=== PATIENT | female | born 1930 | race Caucasian/White ===

== ENCOUNTER 2016-04-26 17:29 | Emergency (ER) | payer MEDICARE ==
[2016-04-26 18:30] VITALS: BP 148/72
[2016-04-26] MEDS ORDERED: Mupirocin 2% CREAM* 15 GM TOPICAL ONE (19:54)
--- NOTE | 2016-05-06 15:16 | UC ---
Jagjit Barrera SooYoung, scribed for Tisha Aviles MD on 04/26/16 at 1935 . Lower Extremity/Ankle HPI - HPI Summary HPI Summary: A 85 y/o F presents to E with c/o ongoing erythematous wound on RLE original onset two months ago. Denies SOB. Pt saw Dr. Gonzalez approx 10 days ago. Per daughter, a nursing staff or health aide has been going to pt's home to help her take care of it. Daughter says the wound has gotten worse since she saw it last, which was approx one month ago. The wound clinic recommend that she come in for evaluation before the next appointment. - History of Current Complaint Chief Complaint: UC Stated Complaint: WOUND ON LEG Time Seen by Provider: 04/26/16 18:31 Hx Obtained From: Patient, Family/Instructor Extension Work - daughter Hx Last Menstrual Period: postmenopausal Onset/Duration: Lasting Weeks - approx 2 months, Still Present - Allergies/Home Medications Allergies/Adverse Reactions: Allergies Allergy/AdvReac Type Severity Reaction Status Date / Time No Known Allergies Allergy Verified 04/26/16 19:46 Home Medications: Home Medications Acetaminophen [Tylenol 8 Hour Arthritis] 650 mg PO 04/26/16 [History] Amlodipine Besylate [Norvasc] 2.5 mg PO DAILY 04/26/16 [History Confirmed ] Atenolol [Tenormin 100 MG] 50 mg PO 04/26/16 [History] Atorvastatin* [Lipitor*] 10 mg PO DAILY 04/26/16 [History Confirmed 04/26/16] Calcium W/ Vitamins D & K [Calcium + D + K 750-500-40 mg-Unt-Mcg] 04/26/16 [ History] Donepezil Hydrochloride [Aricept] 5 mg PO 04/26/16 [History] Fluticasone-Salmeterol 100-50* [Advair Diskus 100-50*] 04/26/16 [History] Losartan Potassium [Cozaar] 50 mg PO 04/26/16 [History] Multiple Vitamins W/ Minerals [Icaps Areds 2] 04/26/16 [History] Multiple Vitamins W/ Minerals [Multivitamin Adults] 1 tab PO 04/26/16 [History] Pantoprazole Sodium [Protonix] 20 mg PO 04/26/16 [History] PMH/Surg Hx/FS Hx/Imm Hx Previously Healthy: No Endocrine History Of: Reports: Thyroid Disease Cardiovascular History Of: Reports: Cardiac Disorders - LVH, Hypertension GI/ History Of: Reports: Gastroesophageal Reflux Neurological History Of: Reports: Dementia - vascular dementia Psychological History Of: Reports: Anxiety - Surgical History Surgical History: None Surgery Procedure, Year, and Place: cataracts - Social History Occupation: Unemployed Lives: [facility] Alcohol Use: Weekly Substance Use Type: None Smoking Status (MU): Never Smoked Tobacco Review of Systems Constitutional: Negative Skin: Other - open wound to RLE superior to ankle, diffuse erythema around the wound ENT: Negative Respiratory: Negative Cardiovascular: Negative Gastrointestinal: Negative Genitourinary: Negative Motor: Other - see hpi Neurovascular: Other - see hpi. no new p/d/w. Musculoskeletal: Edema Neurological: Negative - see hpi. + memory challenges. Presents w/ family member. Psychological: Negative All Other Systems Reviewed And Are Negative: Yes Physical Exam Triage Information Reviewed: Yes Appearance: Well-Nourished, Other: - nad Vital Signs: Initial Vital Signs Temp 98.5 F 04/26/16 18:19 Pulse 81 04/26/16 18:19 Resp 16 04/26/16 18:19 BP 148/72 04/26/16 18:19 Pulse Ox 98 04/26/16 18:19 Vital Signs Reviewed: Yes Eye Exam: Normal - grossly normal ENT Exam: Normal - grossly normal Neck: Positive: Supple - for age Respiratory Exam: Normal Respiratory: Positive: Chest non-tender, Lungs clear, Normal breath sounds, No respiratory distress Cardiovascular Exam: Normal Cardiovascular: Positive: RRR, No Murmur, Pulses Normal, Brisk Capillary Refill Abdominal Exam: Normal - obese Musculoskeletal Exam: Other - BLE chronic venous insuff changes, flaky skin, scattered hemosiderosis. Ulcer left ant tib fib. + full thickness + granulation with devitalized fibrin / slough. + mild periulcer redness, with dermatitic component. Legs approx similar dimension. Feet warm to touch. ++ BLE edema. Neurological Exam: Other - appropriate for baseline, per daughter Psychological Exam: Normal - no acute issues Skin Exam: Normal - Additional Comments Appearance: Well-Nourished Eye Exam: Normal ENT Exam: Normal Neck exam: Normal, no adenopathy appreciated Respiratory Exam: Chest non-tender, Lungs clear, Normal breath sounds, No respiratory distress, No accessory muscle use, BREATH SOUNDS ARE EQUAL Cardiovascular Exam: Normal Cardiovascular: Heart rate regular, No Murmur, Pulses Normal - sitting up. heart rate correlates w right radial pulse, Brisk Capillary Refill Abdominal Exam: Normal Abdomen Description: Nontender, No organomegaly, Soft Bowel Sounds: Present Musculoskeletal Exam: BILATERAL LE: DP2+ EQUAL PT 1+, GOOD CAP REFILL, POS 1 TO 2+ EDEMA, NO HOMEN'S, POS EVIDENCE OF VENOUS INSUFFICIENCY CHANGES, FLAKY SKIN, SCATTERED HEMOPSIDEROSIS. Musculoskeletal: Strength Intact Neurological Exam: Normal: nonfocal, grossly intact Psychological Exam: Normal: conversing easily and appropriately Skin Exam: RL PRETIB WOUND: DIMENSIONS L 2.2cm x W 1.4cm, DRY, POSITIVE SURROUNDING REDNESS, NONBLANCHING. WOUND BED: DARK RED WITH MODERATE DEVITALIZED FIBRIN AND SLOUGH. NO ODOR. MINIMAL DRAINAGE. Lower Extremity Course/Dx - Course Course Of Treatment: Apparently Ms. Wilson is followed by the wound clinic. Will switch from medihoney -> mupiricin until further re-eval. Suspect dermatitic component. Start abx in the event that bacterial bioburden has increased, there is some suspicion here. No gail ulcer infection. Reviewd the importance of leg elevation. Will benefit from compression, once arterial status clarified. Seek medical attention for worse or new problems, including sob / cp / fever, worse redness / swelling. Questions answered to the best of my ability - Differential Dx/Diagnosis Provider Diagnoses: LLE nonhealing ulcer. C/w venous stasis ulcer. Dermatitis , possible mild cellulitis. Discharge - Discharge Plan Condition: Stable Disposition: HOME Prescriptions: DOXYcycline CAP(*) [DOXYcycline 100MG CAP(*)] 100 mg PO BID #20 cap Patient Education Materials: Wound Infection (ED), Stasis Dermatitis (ED), Venous Insufficiency (GEN) Referrals: Jody Lopez MD [Primary Care Provider] - Additional Instructions: Change the dressing 1x a day, and as needed for soilage or soak. Ok to shower, pat dry. Avoid strong soaps. DO NOT USE TRIPLE ANTIBIOTIC OR NEOSPORIN ON THE WOUND. NO ASTRINGENTS. Dressing: THIN layer mupirocin ointment, overlie abd pad or gauze, roll guaze. No direct tape to skin. Stop medihoney for now Keep your foot elevated ABOVE YOUR HEART at leat 2x a days for half an hour, if your back can handle it. Keep your foot elevated generally throughout the day as much as possible. Once the inflammation goes down, you will benefit from compression. Ask the wound clinic about compression options. [facility] Telephone number [phone]. Follow up with sonali De Leon. Meanwhile, go to the Emergency Room for any worse or new problems. The documentation as recorded by the Jagjit saez SooYoung accurately reflects the service I personally performed and the decisions made by me, Tisha Aviles MD.
== END 2016-04-26 20:25 | disposition home or self-care (01) ==
LOC: UCEAST 17:29
DX: L97.819 Non-pressure chronic ulcer of other part of right lower leg with unspecified severity (principal); I87.2 Venous insufficiency (chronic) (peripheral); L30.9 Dermatitis, unspecified; I11.0 Hypertensive heart disease with heart failure; I50.1 Left ventricular failure, unspecified; Z98.49 Cataract extraction status, unspecified eye
CPT/HCPCS: 99212; A9270-GY; G0463

== ENCOUNTER 2016-05-06 16:05 | Observation (INO) | payer MEDICARE, OTHER ==
--- NOTE | 2016-05-06 16:51 | ED ---
Medical Screening - HPI Summary HPI Summary: The patient is an 85 year old female sent from [facility] to ED for evaluation. Per my discussion with [facility] staff, patient appeared to have difficulty breathing today. Patient reports feeling generalized weakness stating "I don't have enough push to get myself out of chair." The patient admits to dry cough and rhinorrhea. The patient denies fever, chills, diaphoresis, headache, sore throat, chest pain, shortness of breath, abdominal pain, nausea, vomiting, diarrhea, constipation, change in voiding, dysuria, or hematuria, calf pain, or leg swelling. Given history of vascular dementia, patient is a poor historian and unable to provide PMH or surgical history. Per review of medical records, history of vascular dementia, HTN, GERD. Denies history of smoking. Admits to FH of CAD. SH: Lives in [facility]. - History of Current Complaint Stated Complaint: WEAKNESS Time Seen by Provider: 05/06/16 16:27 PMH/Surg Hx/FS Hx/Imm Hx Endocrine/Hematology History: Reports: Hx Thyroid Disease - Surgical History Surgery Procedure, Year, and Place: cataracts Infectious Disease History: Reports: Hx Shingles - treated - Social History Alcohol Use: Weekly Substance Use Type: Reports: None Smoking Status (MU): Never Smoked Tobacco Review of Systems Positive: Fatigue. Negative: Fever Eyes: Negative ENT: Negative Negative: Sore Throat, Nasal Discharge Cardiovascular: Negative Negative: Chest Pain Respiratory: Negative Negative: Shortness Of Breath, Cough Gastrointestinal: Negative Negative: Abdominal Pain, Vomiting, Nausea Genitourinary: Negative Negative: dysuria, hematuria Musculoskeletal: Negative Negative: Arthralgia, Myalgia Positive: Weakness. Negative: Headache, Numbness All Other Systems Reviewed And Are Negative: Yes Physical Exam Triage Information Reviewed: Yes Vital Signs Reviewed: Yes Appearance: Positive: Well-Appearing, No Pain Distress, Thin Skin: Positive: Warm, Skin Color Reflects Adequate Perfusion, Dry Head/Face: Positive: Normal Head/Face Inspection. Negative: Cephalohematoma Eyes: Positive: Normal, EOMI, IRINA, Conjunctiva Clear ENT: Positive: Normal ENT inspection, Hearing grossly normal, Pharynx normal, TMs normal Neck: Positive: Supple, Nontender, No Lymphadenopathy, Other: - no JVD Respiratory/Lung Sounds: Positive: Clear to Auscultation, Breath Sounds Present. Negative: Decreased Breath Sounds, Rales, Rhonchi, Wheezes, Unable to speak in full sentences Cardiovascular: Positive: Normal, RRR, S1, S2. Negative: Murmur, Rub, Tachycardia, Leg Edema Left, Leg Edema Right, S3 Abdomen Description: Positive: Nontender, No Organomegaly, Soft. Negative: Distended, Guarding, Peritoneal Signs Bowel Sounds: Positive: Present Musculoskeletal: Positive: Strength/ROM Intact - equal muscle strength in UE/LE bilaterally; no extremity drift. Negative: Edema Left, Edema Right Neurological: Positive: Sensory/Motor Intact, CN Intact II-III, Reflexes Intact , Finger to Nose - normal, Facial Symmetry, Speech Normal, Other - A/O to self only - baseline per phone conversation with [facility] staff. NIHSS 0. Negative : Facial Droop, Focal Deficit @, Slurred Speech, Dysarthric Aphasia Psychiatric: Positive: Normal AVPU Assessment: Alert Diagnostics - Laboratory Result Diagrams: 05/06/16 17:15 05/06/16 17:15 Lab Statement: Any lab studies that have been ordered have been reviewed, and results considered in the medical decision making process. Re-Evaluation - Re-Evaluation First Eval Re-Evaluation Time: 18:14 Comment: RN reports during straight cath vaginal area with dry marked erythema. Ordered nystatin ointment. Second Eval Re-Evaluation Time: 18:33 Comment: Patient grimacing with slight tachycardia and tachypnea after straigh cath. Likely pain response. Ordered Tylenol PO which she was unable to tolerate. Changed to Tylenol IV. Third Eval Re-Evaluation Time: 21:01 Comment: Patient requiring 2 person assist to reposition out of bed. Unable to ambulate independently with walker. Course/Dx - Course Assessment/Plan: Patient is a 85 female presenting for acute generalized weakness. EKG with NSR with old Q waves inferior and anterior leads without acute ischemia. Labs significant for Na 127, Cl 97, CO2 21, BUN 29, Cr 1.36, ratio 21.3, and unremarkable troponin. CXR without acute cardiopulmonary disease. Urinalysis unremarkable. As patient is unable to self extricate from bed and ambulate independently, she is unable to return to assisted living. Will be admitted to OBS for further management. - Diagnoses Provider Diagnoses: Dehydration, Weakness - Physician Notifications Discussed Care Of Patient With: Spoke with hospitalist, Jeremiah, who at this time declined admission to OBS. Advised giving NS 1 L bolus then reaccess with ambulation trial. 2108: Spoke with hospitalist Dr. Helton. Discussed inability to perform ADL's independently. Will admit to OBS Instructed by Provider To: Admit As Observation Discharge - Discharge Plan Condition: Stable Disposition: ADMITTED TO [facility] Referrals: Jody Lopez MD [Primary Care Provider] -
[2016-05-06 17:27] LABS: Hematocrit 38 % (35-47); Hemoglobin 12.7 g/dl (12.0-16.0); Mean Corpuscular HGB Conc 33 g/dl (31-36); Mean Corpuscular Hemoglobin 27 pg (27-31); Mean Corpuscular Volume 83 fL (80-97); Mean Platelet Volume 10 um3 (7.4-10.4); Red Blood Count 4.63 10^6/ul (4.0-5.4); Red Cell Distribution Width 15 % (10.5-15); White Blood Count 7.2 10^3/ul (3.5-10.8)
--- NOTE | 2016-05-06 17:39 | RAD ---
Indication: Shortness of breath. 2 views of the chest demonstrate no mediastinal shift. There is cardiomegaly. Lung varghese appear hyperinflated with no evidence of alveolar consolidation. There is likely compression of the thoracic spine. No pneumonia is identified. 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 IMPRESSION: No active cardiopulmonary disease is noted.
[2016-05-06 17:43] LABS: Troponin I 0.03 ng/mL (<0.04)
[2016-05-06 17:45] LABS: BUN/Creatinine Ratio 21.3 (8-20); Calcium 9.4 mg/dL (8.6-10.3); EGFR African American 47.6 (>60); Potassium 4.1 mmol/L (3.5-5.0)
[2016-05-06] MEDS ORDERED: Acetaminophen TAB* 325 MG ONE (18:27)
[2016-05-06 18:31] LABS: Urine Bilirubin Negative (Negative); Urine Glucose Negative (Negative); Urine Nitrite Negative (Negative)
[2016-05-06] MEDS ORDERED: Acetaminophen IV 1GM/100ML * 1,000 MG in PREMIX* 0 ML IVPB ONE (18:32)
[2016-05-06] MEDS: NS 0.9% 1000 ML* 1,000 ML IV SCH (18:35)
[2016-05-06] MEDS: Nystatin OINT* 15 GM TOPICAL SCH (20:17)
[2016-05-06] MEDS ORDERED: Albuterol HFA INHALER* 8 gm MDI INH PRN (22:27)
[2016-05-06] MEDS ORDERED: Acetaminophen TAB* 325 MG PO PRN (22:27)
[2016-05-06] MEDS ORDERED: NS 0.9% 1000 ML* 1,000 ML IV SCH (22:45)
[2016-05-07] MEDS: NS 0.9% 1000 ML* 1,000 ML IV SCH (01:11)
[2016-05-07] MEDS: Heparin VIAL(*) 5000 UNITS/ML VIAL (FIVE THOUSAND) SUBCUT SCH ×3 (06:20→21:23)
[2016-05-07 06:24] LABS: BUN/Creatinine Ratio 19.8 (8-20); Calcium 8.2 mg/dL (8.6-10.3); EGFR African American 60.2 (>60); EGFR Non-African American 46.8 (>60); Potassium 3.5 mmol/L (3.5-5.0)
[2016-05-07] MEDS: Mometasone/Formoter 100/5 MDI INH SCH ×2 (08:27→20:47)
[2016-05-07] MEDS: Losartan TAB* 25 MG PO SCH (10:11)
[2016-05-07] MEDS: Atorvastatin* 10 MG TAB PO SCH (10:11)
[2016-05-07] MEDS: amLODIPine TAB* 5 MG PO SCH (10:11)
[2016-05-07] MEDS: Omeprazole CAP* 20 MG PO SCH (10:12)
[2016-05-07] MEDS: Atenolol TAB* 50 MG PO SCH (10:12)
[2016-05-07] MEDS: Multivitamins/Minera Areds(NF) 1 CAP CAP PO SCH (10:13)
[2016-05-07] MEDS: [UNRECOGNIZED DRUG - MIXTURE] PO SCH (10:15)
[2016-05-07] MEDS ORDERED: Haloperidol TAB* 1 MG PO PRN (10:44)
[2016-05-07] MEDS: Nystatin OINT* 15 GM TOPICAL SCH ×2 (12:47→21:27)
--- NOTE | 2016-05-07 14:29 | HP ---
HISTORY AND PHYSICAL: DATE OF ADMISSION: 05/06/16 CHIEF COMPLAINT: Weakness. HISTORY OF PRESENT ILLNESS: The patient is an 85-year-old woman, who is a resident of [facility], who was sent over because apparently she had difficulty breathing according to the nursing staff at [place]. Initially to the ED doctor, the patient said she had generalized weakness and just had no strength to get herself out of the chair. Unfortunately with me, the patient was completely disoriented and did not know why she was even here. The patient, at time with the ED doctor, denied any fever, chills, headache, chest pain, shortness of breath, abdominal pain, nausea, or vomiting. She has a history of dementia and it is likely why she is in the state she is in when I am seeing the patient right now. Because of the difficulty getting the patient out of chair and her weakness, the patient is being admitted to observation for profound weakness and dehydration. PAST MEDICAL HISTORY: Hypertension, GERD, anemia of chronic disease, osteoarthritis, and anxiety. PAST SURGICAL HISTORY: Cataracts. HOME MEDICATIONS: 1. Ventolin inhaler 2 inhalations q.6 hours as needed. 2. Amlodipine 5 mg daily. 3. Acetaminophen 650 mg every 6 hours as needed. 4. Lipitor 10 mg daily. 5. Atenolol 50 mg daily. 6. Aricept 5 mg at bedtime. 7. Doxycycline 100 mg twice daily. 8. Calcium with vitamin D 1 tablet daily. 9. Advair 2 inhalations twice daily. 10. Losartan 50 mg daily. 11. Protonix 40 mg daily. 12. Multivitamin 1 tablet daily. FAMILY HISTORY: Unable to review with the patient. SOCIAL HISTORY: No tobacco, alcohol, or recreational drug use. She is a resident of [facility]. Her son, Mykel Wilson, is her health care proxy. REVIEW OF SYSTEMS: Unable to review with the patient because of the patient's dementia. PHYSICAL EXAMINATION GENERAL: She is a pleasant elderly woman, lying in bed, in no acute distress. VITAL SIGNS: Temperature 98.7 degrees, heart rate 85 beats per minute, respiratory rate 20 breaths per minute, pulse ox 97%, and blood pressure 159/72. HEENT: Normocephalic, atraumatic. Pupils are equal, round, and reactive to light. Moist mucous membranes. NECK: Supple. No JVD, bruits, palpable thyroid, or lymphadenopathy. CHEST: Clear to auscultation and percussion bilaterally. CARDIOVASCULAR: S1, S2 appreciated. Regular rate and rhythm. ABDOMEN: Positive bowel sounds in all 4 quadrants. Soft, nontender, and nondistended. No hepatosplenomegaly. EXTREMITIES: No cyanosis, clubbing, or edema; +2 peripheral pulses bilaterally. NEUROLOGIC: Alert and oriented x1. Moves all extremities. SKIN: No rash or abnormalities. DIAGNOSTIC STUDIES/LAB DATA: White count 7.2, hemoglobin 12.7, hematocrit 38, and platelets 155. Sodium 127, potassium 4.1, chloride 97, CO2 21, BUN 29, and creatinine 1.26. UA is unremarkable. Chest x-ray was interpreted by Radiology as no active cardiopulmonary disease is noted. EKG: Normal sinus rhythm, 83 beats per minute, normal axis, LVH, and no acute ST-T wave changes. ASSESSMENT AND PLAN: 1. Weakness: I think this likely is secondary to some dehydration. There is nothing else really declaring itself at this time. I will hydrate her with normal saline. I will get a physical therapy exam in the morning and we will observe her overnight. 2. Hypertension: Her blood pressure is not adequately controlled. Continue current management and adjust accordingly. 3. Dementia: Continue Aricept. 4. Hyperlipidemia: Stable. Continue Lipitor. 5. Gastroesophageal reflux disease: Continue Protonix. 6. DVT prophylaxis: Heparin subcu. 7. FEN: Regular diet. 8. Code status: The patient is a full code. TIME SPENT: Over 75 minutes was spent on this H and P; more than 40 minutes of which was spent in direct [id number] contact with the patient, evaluation, physical exam, counseling, and coordination of care. CC: Jody Lopez MD * [id number]/CPS #: [id number] MTDD
--- NOTE | 2016-05-07 18:11 | PN ---
Subjective Date of Service: 05/07/16 Interval History: HOSPITALIST PROGRESS NOTE Patient seen and examined at bedside. She is very anxious, doesn't know what's wrong, where she's at. Denies pain or dyspnea. Family History: Unchanged from Admission Social History: Unchanged from Admission Past Medical History: Unchanged from Admission Objective Active Medications: Acetaminophen (Tylenol Tab*) 650 mg PO Q6HR PRN PRN Reason: pain/fever Albuterol (Ventolin Hfa Inhaler*) 2 puff INH Q6HR PRN PRN Reason: SOB/WHEEZING Amlodipine Besylate (Norvasc Tab*) 5 mg PO DAILY [facility] Last Admin: 05/07/16 10:11 Dose: 5 mg Atenolol (Tenormin Tab*) 50 mg PO DAILY [facility] Last Admin: 05/07/16 10:12 Dose: 50 mg Atorvastatin Calcium (Lipitor*) 10 mg PO DAILY [facility] Last Admin: 05/07/16 10:11 Dose: 10 mg Donepezil HCl (Aricept Tab*) 5 mg PO BEDTIME [facility] Haloperidol (Haldol Tab*) 1 mg PO Q6H PRN PRN Reason: AGITATION Heparin Sodium (Porcine) (Heparin Vial(*)) 5,000 units SUBCUT Q8HR [facility] Last Admin: 05/07/16 14:45 Dose: 5,000 units Losartan Potassium (Cozaar Tab*) 50 mg PO DAILY [facility] Last Admin: 05/07/16 10:11 Dose: 50 mg Mometasone Furoate/Formoterol Fumar (Dulera 100/5 Mdi*) 2 puff INH BID [facility] Last Admin: 05/07/16 08:27 Dose: 2 puff Multivitamins/Minerals (Preservision Areds(Multivitamins/Mineral)(Nf)) 1 cap PO DAILY [facility] Last Admin: 05/07/16 10:13 Dose: Not Given (Calcium W/ Vitamins D & K [Calcium + D + K 750-500-40 Mg- Unt-Mcg] 1 Ta 1 tab PO DAILY [facility] Last Admin: 05/07/16 10:15 Dose: Not Given Nystatin (Nystatin Oint*) 1 applic TOPICAL BID [facility] Last Admin: 05/07/16 12:47 Dose: Not Given Omeprazole (Prilosec Cap*) 20 mg PO DAILY [facility] Last Admin: 05/07/16 10:12 Dose: 20 mg Vital Signs 05/07/16 05/07/16 08:35 15:34 Temperature 97.7 F Pulse Rate 85 82 Respiratory 16 24 Rate Blood Pressure 120/56 (mmHg) O2 Sat by Pulse 98 Oximetry Oxygen Devices in Use Now: None Appearance: Elderly lady sitting up in bed in NAD. Eyes: No Scleral Icterus Ears/Nose/Mouth/Throat: Mucous Membranes Moist Neck: Trachea Midline Respiratory: Symmetrical Chest Expansion and Respiratory Effort, Clear to Auscultation Cardiovascular: RRR - Normal S1 and S2 Abdominal: NL Sounds; No Tenderness; No Distention Neurological: - - AAOx1 (self only), BONNER Lines/Tubes/Other Access: Clean, Dry and Intact Peripheral IV Nutrition: Taking PO's Result Diagrams: 05/06/16 17:15 05/07/16 05:30 Assess/Plan/Problems-Billing Assessment: Mrs. Wilson is an 85yo F with PMH of dementia, HTN, GERD, anxiety, sent to ED for weakness and confusion. - Patient Problems (1) Dementia Comment: - Her symptoms appear to be secondary to progression of her dementia. - I called her PCP (Dr. Lopez) to review her records. - She has no signs of infection at this time and she appears to have had progressive decline over the past year. - Will start Haldol PRN for agitation. - Continue Aricept. (2) Physical deconditioning Comment: - PT/OT. - Will likely need placement. (3) HTN (hypertension) Comment: - Continue Atenolol, Losartan and Amlodipine. (4) GERD (gastroesophageal reflux disease) Comment: - Continue Omeprazole. (5) DVT prophylaxis Comment: - SQ heparin. Status and Disposition: Son Zheng) called and updated about patient's condition. [phone].
[2016-05-07] MEDS: Donepezil TAB* 5 MG PO SCH (21:25)
[2016-05-08] MEDS: Heparin VIAL(*) 5000 UNITS/ML VIAL (FIVE THOUSAND) SUBCUT SCH ×3 (06:23→20:46)
[2016-05-08] MEDS ORDERED: Fluconazole 100 MG TAB* TAB PO ONE (10:50)
[2016-05-08] MEDS: Mometasone/Formoter 100/5 MDI INH SCH ×2 (11:05→20:46)
[2016-05-08] MEDS: Losartan TAB* 25 MG PO SCH (11:10)
[2016-05-08] MEDS: amLODIPine TAB* 5 MG PO SCH (11:11)
[2016-05-08] MEDS: Atenolol TAB* 50 MG PO SCH (11:11)
[2016-05-08] MEDS: Omeprazole CAP* 20 MG PO SCH (11:11)
[2016-05-08] MEDS: Multivitamins/Minera Areds(NF) 1 CAP CAP PO SCH (11:14)
[2016-05-08] MEDS: [UNRECOGNIZED DRUG - MIXTURE] PO SCH (11:14)
[2016-05-08] MEDS: Atorvastatin* 10 MG TAB PO SCH (11:30)
[2016-05-08] MEDS: Nystatin OINT* 15 GM TOPICAL SCH (11:30)
[2016-05-08] MEDS: Miconazole TOPICAL CREAM 2%* 30 GM TOPICAL SCH ×2 (14:42→22:11)
--- NOTE | 2016-05-08 16:20 | PN ---
Subjective Date of Service: 05/08/16 Interval History: HOSPITALIST PROGRESS NOTE Patient seen and examined at bedside. She is much calmer today. C/o pain on her bottom, but otherwise has no complaints. As per RN, has had 3 episodes of soft stools today. Family History: Unchanged from Admission Social History: Unchanged from Admission Past Medical History: Unchanged from Admission Objective Active Medications: Acetaminophen (Tylenol Tab*) 650 mg PO Q6HR PRN PRN Reason: pain/fever Last Admin: 05/08/16 14:41 Dose: 650 mg Albuterol (Ventolin Hfa Inhaler*) 2 puff INH Q6HR PRN PRN Reason: SOB/WHEEZING Amlodipine Besylate (Norvasc Tab*) 5 mg PO DAILY [facility] Last Admin: 05/08/16 11:11 Dose: 5 mg Atenolol (Tenormin Tab*) 50 mg PO DAILY [facility] Last Admin: 05/08/16 11:11 Dose: 50 mg Donepezil HCl (Aricept Tab*) 5 mg PO BEDTIME [facility] Last Admin: 05/07/16 21:25 Dose: 5 mg Haloperidol (Haldol Tab*) 1 mg PO Q6H PRN PRN Reason: AGITATION Heparin Sodium (Porcine) (Heparin Vial(*)) 5,000 units SUBCUT Q8HR [facility] Last Admin: 05/08/16 14:11 Dose: 5,000 units Losartan Potassium (Cozaar Tab*) 50 mg PO DAILY [facility] Last Admin: 05/08/16 11:10 Dose: 50 mg Miconazole Nitrate (Monistat 2%*) 1 applic TOPICAL BID [facility] Last Admin: 05/08/16 14:42 Dose: 1 applic Mometasone Furoate/Formoterol Fumar (Dulera 100/5 Mdi*) 2 puff INH BID [facility] Last Admin: 05/08/16 11:05 Dose: 2 puff Multivitamins/Minerals (Preservision Areds(Multivitamins/Mineral)(Nf)) 1 cap PO DAILY [facility] Last Admin: 05/08/16 11:14 Dose: Not Given (Calcium W/ Vitamins D & K [Calcium + D + K 750-500-40 Mg- Unt-Mcg] 1 Ta 1 tab PO DAILY [facility] Last Admin: 05/08/16 11:14 Dose: Not Given Omeprazole (Prilosec Cap*) 20 mg PO DAILY [facility] Last Admin: 05/08/16 11:11 Dose: 20 mg Vital Signs 05/08/16 14:00 Temperature 98.2 F Pulse Rate 80 Respiratory 20 Rate Blood Pressure 132/68 (mmHg) O2 Sat by Pulse 96 Oximetry Oxygen Devices in Use Now: None Appearance: Elderly lady lying in bed in NAD. Eyes: No Scleral Icterus Ears/Nose/Mouth/Throat: Mucous Membranes Moist Neck: Trachea Midline Respiratory: Symmetrical Chest Expansion and Respiratory Effort, Clear to Auscultation Cardiovascular: RRR - Normal S1 and S2 Abdominal: NL Sounds; No Tenderness; No Distention Skin: - - Severe erythema to genital area, extending in to perianal area Neurological: - - AAOx1 (self only) Lines/Tubes/Other Access: Clean, Dry and Intact Peripheral IV Nutrition: Taking PO's Result Diagrams: 05/06/16 17:15 05/07/16 05:30 Assess/Plan/Problems-Billing Assessment: Mrs. Wilson is an 85yo F with PMH of dementia, HTN, GERD, anxiety, sent to ED for weakness and confusion. - Patient Problems (1) Loose stools Comment: - She may have a viral gastroenteritis as the source of her discomfort - will monitor for now. (2) Dementia Comment: - Her symptoms appear to be secondary to progression of her dementia. - I called her PCP (Dr. Lopez) to review her records. - She has no signs of infection at this time and she appears to have had progressive decline over the past year. - Continue Haldol PRN for agitation. - Continue Aricept. (3) Intertriginous candidiasis Comment: - Suspect part of her discomfort is secondary to intertrigo. - Will give Fluconazole 150mg x 1 dose and Miconazole topical. (4) Physical deconditioning Comment: - PT/OT. - Will likely need placement. (5) HTN (hypertension) Comment: - Continue Atenolol, Losartan and Amlodipine. (6) GERD (gastroesophageal reflux disease) Comment: - Continue Omeprazole. (7) DVT prophylaxis Comment: - SQ heparin. Status and Disposition: Change to [facility].
[2016-05-08] MEDS: Donepezil TAB* 5 MG PO SCH (20:45)
[2016-05-09] MEDS: Heparin VIAL(*) 5000 UNITS/ML VIAL (FIVE THOUSAND) SUBCUT SCH ×3 (06:19→22:14)
[2016-05-09 06:28] LABS: Hematocrit 36 % (35-47); Hemoglobin 12.3 g/dl (12.0-16.0); Mean Corpuscular HGB Conc 34 g/dl (31-36); Mean Corpuscular Hemoglobin 28 pg (27-31); Mean Corpuscular Volume 81 fL (80-97); Mean Platelet Volume 10 um3 (7.4-10.4); Red Blood Count 4.45 10^6/ul (4.0-5.4); Red Cell Distribution Width 15 % (10.5-15); White Blood Count 6.3 10^3/ul (3.5-10.8)
[2016-05-09 06:55] LABS: BUN/Creatinine Ratio 16.7 (8-20); Calcium 8.5 mg/dL (8.6-10.3); EGFR African American 62.2 (>60); EGFR Non-African American 48.3 (>60); Potassium 3.3 mmol/L (3.5-5.0)
[2016-05-09] MEDS: Atenolol TAB* 50 MG PO SCH (08:54)
[2016-05-09] MEDS: amLODIPine TAB* 5 MG PO SCH (08:54)
[2016-05-09] MEDS: Losartan TAB* 25 MG PO SCH (08:54)
[2016-05-09] MEDS: Omeprazole CAP* 20 MG PO SCH (08:54)
[2016-05-09] MEDS: Potassium Chloride LIQUID* 20 MEQ PACKET PO SCH (08:54)
[2016-05-09] MEDS: Miconazole TOPICAL CREAM 2%* 30 GM TOPICAL SCH ×2 (08:55→20:34)
[2016-05-09] MEDS: [UNRECOGNIZED DRUG - MIXTURE] PO SCH (09:09)
[2016-05-09] MEDS: Multivitamins/Minera Areds(NF) 1 CAP CAP PO SCH (09:09)
[2016-05-09] MEDS: Mometasone/Formoter 100/5 MDI INH SCH ×2 (09:30→19:53)
--- NOTE | 2016-05-09 15:32 | PN ---
Subjective Date of Service: 05/09/16 Interval History: HOSPITALIST PROGRESS NOTE Patient seen and examined at bedside. She offers no complaints at this time. As per RN, she has had 5 loos BMs so far today, with some mucus. Tolerating diet well. Family History: Unchanged from Admission Social History: Unchanged from Admission Past Medical History: Unchanged from Admission Objective Active Medications: Acetaminophen (Tylenol Tab*) 650 mg PO Q6HR PRN PRN Reason: pain/fever Last Admin: 05/08/16 14:41 Dose: 650 mg Albuterol (Ventolin Hfa Inhaler*) 2 puff INH Q6HR PRN PRN Reason: SOB/WHEEZING Amlodipine Besylate (Norvasc Tab*) 5 mg PO DAILY [facility] Last Admin: 05/09/16 08:54 Dose: 5 mg Atenolol (Tenormin Tab*) 50 mg PO DAILY [facility] Last Admin: 05/09/16 08:54 Dose: 50 mg Donepezil HCl (Aricept Tab*) 5 mg PO BEDTIME [facility] Last Admin: 05/08/16 20:45 Dose: 5 mg Haloperidol (Haldol Tab*) 1 mg PO Q6H PRN PRN Reason: AGITATION Heparin Sodium (Porcine) (Heparin Vial(*)) 5,000 units SUBCUT Q8HR [facility] Last Admin: 05/09/16 14:10 Dose: 5,000 units Lidocaine (Xylocaine 5% Oint*) 1 applic TOPICAL BID PRN PRN Reason: PAIN Losartan Potassium (Cozaar Tab*) 50 mg PO DAILY [facility] Last Admin: 05/09/16 08:54 Dose: 50 mg Miconazole Nitrate (Monistat 2%*) 1 applic TOPICAL BID [facility] Last Admin: 05/09/16 08:55 Dose: 1 applic Mometasone Furoate/Formoterol Fumar (Dulera 100/5 Mdi*) 2 puff INH BID [facility] Last Admin: 05/09/16 09:30 Dose: 2 puff Multivitamins/Minerals (Preservision Areds(Multivitamins/Mineral)(Nf)) 1 cap PO DAILY [facility] Last Admin: 05/09/16 09:09 Dose: Not Given (Calcium W/ Vitamins D & K [Calcium + D + K 750-500-40 Mg- Unt-Mcg] 1 Ta 1 tab PO DAILY [facility] Last Admin: 05/09/16 09:09 Dose: Not Given Omeprazole (Prilosec Cap*) 20 mg PO DAILY [facility] Last Admin: 05/09/16 08:54 Dose: 20 mg Potassium Chloride (Klor-Con Liquid*) 40 meq PO DAILY [facility] Last Admin: 05/09/16 08:54 Dose: 40 meq Vital Signs 05/08/16 05/08/16 05/09/16 20:00 23:17 07:34 Temperature 97.5 F 98.3 F Pulse Rate 78 82 Respiratory 16 16 17 Rate Blood Pressure 123/53 115/55 (mmHg) O2 Sat by Pulse 95 96 Oximetry 05/09/16 05/09/16 10:02 14:23 Temperature 98.5 F Pulse Rate 76 Respiratory 20 18 Rate Blood Pressure 148/88 (mmHg) O2 Sat by Pulse 96 Oximetry Oxygen Devices in Use Now: None Appearance: Pleasantly confused elderly lady lying in bed in NAD. Eyes: No Scleral Icterus Ears/Nose/Mouth/Throat: Mucous Membranes Moist Neck: Trachea Midline Respiratory: Symmetrical Chest Expansion and Respiratory Effort, Clear to Auscultation Cardiovascular: RRR - Normal S1 and S2 Abdominal: NL Sounds; No Tenderness; No Distention Neurological: - - AAOx1 (self), [place] Lines/Tubes/Other Access: Clean, Dry and Intact Peripheral IV Nutrition: Taking PO's Result Diagrams: 05/09/16 06:11 05/09/16 06:11 Microbiology and Other Data: Microbiology 05/09/16 09:05 Stool Gross Appearance - Final Stool Rotavirus Antigen - Final Negative Rotavirus 05/09/16 09:05 Stool Gross Appearance - Final Stool Stool Lactoferrin - Final Assess/Plan/Problems-Billing Assessment: Mrs. Wilson is an 85yo F with PMH of dementia, HTN, GERD, anxiety, sent to ED for weakness and confusion. - Patient Problems (1) Loose stools Comment: - She may have a viral gastroenteritis as the source of her discomfort - will monitor for now. - Stool w/u sent - rotavirus negative. (2) Dementia Comment: - Her symptoms appear to be secondary to progression of her dementia. - I called her PCP (Dr. Lopez) to review her records. - She has no signs of infection at this time and she appears to have had progressive decline over the past year. - Continue Haldol PRN for agitation. - Continue Aricept. (3) Intertriginous candidiasis Comment: - Suspect part of her discomfort is secondary to intertrigo. - Received Fluconazole 150mg x 1 dose and continue Miconazole topical. (4) Physical deconditioning Comment: - PT/OT. - Will need placement. (5) HTN (hypertension) Comment: - Continue Atenolol, Losartan and Amlodipine. (6) GERD (gastroesophageal reflux disease) Comment: - Continue Omeprazole. (7) DVT prophylaxis Comment: - SQ heparin. Status and Disposition: Patient was Care Home care but now has diarrhea. Will change back to [facility]. Hope to d/c to [facility] in AM if diarrhea improved.
[2016-05-09] MEDS: Donepezil TAB* 5 MG PO SCH (20:34)
[2016-05-09] MEDS: Lidocaine 5% OINT TOPICAL PRN (22:04)
[2016-05-10] MEDS: Heparin VIAL(*) 5000 UNITS/ML VIAL (FIVE THOUSAND) SUBCUT SCH (06:11)
[2016-05-10 07:19] VITALS: BP 119/53
[2016-05-10] MEDS: [UNRECOGNIZED DRUG - MIXTURE] PO SCH (07:24)
[2016-05-10] MEDS: Losartan TAB* 25 MG PO SCH (07:27)
[2016-05-10] MEDS: Omeprazole CAP* 20 MG PO SCH (07:27)
[2016-05-10] MEDS: Potassium Chloride LIQUID* 20 MEQ PACKET PO SCH (07:28)
[2016-05-10] MEDS: Atenolol TAB* 50 MG PO SCH (07:28)
[2016-05-10] MEDS: Lidocaine 5% OINT TOPICAL PRN (07:28)
[2016-05-10] MEDS: amLODIPine TAB* 5 MG PO SCH (07:28)
[2016-05-10] MEDS: Miconazole TOPICAL CREAM 2%* 30 GM TOPICAL SCH (07:29)
[2016-05-10] MEDS: Multivitamins/Minera Areds(NF) 1 CAP CAP PO SCH (08:06)
[2016-05-10] MEDS: Mometasone/Formoter 100/5 MDI INH SCH (08:58)
--- NOTE | 2016-05-10 10:35 | DS ---
DATE OF ADMISSION: 05/06/16 DATE OF DISCHARGE: 05/10/16 PRIMARY CARE PROVIDER: Dr. Lopez DISCHARGE DIAGNOSES: 1. Deconditioning. 2. Dementia. 3. Self-limited episodes of diarrhea. 4. Intertrigo. SECONDARY DIAGNOSES: 1. Dementia. 2. Hypertension. 3. Gastroesophageal reflux disease. 4. Anxiety. MEDICATIONS AT TIME OF DISCHARGE: 1. Acetaminophen 650 mg po 6 hours prn pain. 2. Amlodipine 5 mg po daily. 3. Atenolol 50 mg po daily. 4. Atorvastatin 10 mg po daily. 5. Calcium plus vitamin D one tablet po daily. 6. Donepezil 5 mg po at bedtime. 7. Advair 100/50 two puffs inhaled bid. 8. Losartan 50 mg po daily. 9. Miconazole 2% to genital area bid. 10. Multivitamin one capsule po daily. 11. Pantoprazole 40 mg po daily. 12. Ventolin HFA two puffs inhaled q 6 hours prn shortness of breath. HOSPITAL COURSE: Ms. Wilson is an 85-year-old lady with a past medical history as stated above who presented to the emergency room with weakness. The patient is demented, confused, and was unable to provide any history. As per HPI, she was sent over from [place] because she was having difficulty breathing; but, the ER provider thought that the patient had generalized weakness. For more details about her presentation, I refer you to her history and physical. The admitting physician found that she had some weakness and dehydration, but no other specific source was found. Her CBC was normal. Her chemistry showed mild elevation of her creatinine, and she had mild hyponatremia. Urinalysis was negative for a UTI. A chest x-ray was negative for infiltrate. The patient was initially admitted as observation. I contacted her primary care provider and reviewed her history, and my impression was that this was likely a progression of her known dementia. I discussed my impression with the family, and the plan was for SNF placement for rehab in hopes of getting her back to [place]. The patient was transferred to fdc care while she awaited SNF placement. The patient did have one day of multiple episodes of diarrhea. Stool workup was sent. Rotavirus was negative. Stool culture so far has shown no growth, and a fecal lactoferrin was positive. The patient received only supportive care , and her diarrhea has now resolved. On admission, the patient was found to have severe erythema of her genital area with edema extending to her perineal area, suggestive of intertriginous candidiasis. The patient received one dose of oral Fluconazole and has received topical treatment with Miconazole with improvement. The edema has subsided. She still has some erythema, but it's not as intense as it was before. At this point, the patient is felt to be medically stable to be discharged to [facility] for rehab. PHYSICAL EXAMINATION: Vital signs - temperature 97.3, heart rate 80, respiratory rate 14, oxygen saturation 97% on room air, blood pressure 119/53. General - patient is an elderly lady, pleasantly confused, lying in bed in no acute distress. CVS - normal S1, S2, regular rate and rhythm. Chest - breath sounds bilaterally with no added sounds. Abdomen - soft, non-tender, non- distended, bowel sounds present. Extremities - no edema. Neuro - she's alert, awake, oriented x1 to self only, able to move all four extremities. DIET: Regular diet. ACTIVITIES: As tolerated. Continue PT as tolerated. STATUS WHILE IN HOSPITAL: Observation/fdc. DISPOSITION: [facility]. Please keep in mind that this is a summarized version of this patient's hospital stay. If you need any more information, please feel free to call me at [phone], or please obtain the full medical record. Approximately 45 minutes were spent to complete this discharge. CC: [facility]; Dr. Lpoez* [id number]/CPS #: [id number] MTDD
== END 2016-05-10 11:30 ==
LOC: ED 16:05 → MED 22:32 → INTOOBSV 05-08 12:18 → OBSVTOIN 05-08 12:18
PROVIDERS: ADMIT Internal Medicine; ATTEND Internal Medicine
DX: F03.90 Unspecified dementia, unspecified severity, without behavioral disturbance, psychotic disturbance, mood disturbance, and anxiety (principal); R19.7 Diarrhea, unspecified; L30.4 Erythema intertrigo; I10 Essential (primary) hypertension; K21.9 Gastro-esophageal reflux disease without esophagitis; F41.9 Anxiety disorder, unspecified; D64.9 Anemia, unspecified; M19.90 Unspecified osteoarthritis, unspecified site; E78.5 Hyperlipidemia, unspecified; R53.1 Weakness
CPT/HCPCS: 36415; 71020; 80048; 81003; 83630; 84484; 85025; 87045; 87046; 87070; 87077; 87205; 87425; 87640; 87641; 87899; 93005; 94640; 94760; 99285; A9270-GY; G0378; G8978-GP-CK; G8979-GP-CI; G8987-GO-CL; G8988-GO-CJ; J1644

== ENCOUNTER 2016-06-21 17:22 | Emergency (ER) | payer MEDICARE ==
[2016-06-21 19:35] VITALS: BP 163/85
--- NOTE | 2016-06-21 19:47 | ED ---
Miquel Barrera Anna, scribed for Cheko Colvin MD on 06/21/16 at 1924 . Throat Pain/Nasal Congestion - HPI Summary HPI Summary: Patient is an 86 y/o female coming to [facility] presenting with sudden onset of one episode of epistaxis that began earlier today. The epistaxis is now resolved. She reports no other pain or symptoms. She has a history of HTN. At triage, her BP was 203/81. She denies current use of blood thinners. She lives at [place]. - History of Current Complaint Chief Complaint: EDEpistaxis Time Seen by Provider: 06/21/16 19:19 Hx Obtained From: Patient Onset/Duration: Sudden Onset, Resolved Severity: Moderate - Allergies/Home Medications Allergies/Adverse Reactions: Allergies Allergy/AdvReac Type Severity Reaction Status Date / Time No Known Allergies Allergy Verified 04/26/16 19:46 PMH/Surg Hx/FS Hx/Imm Hx Endocrine/Hematology History: Reports: Hx Thyroid Disease Cardiovascular History: Reports: Hx Hypertension Sensory History: Reports: Hx Contacts or Glasses Opthamlomology History: Reports: Hx Contacts or Glasses - Surgical History Surgery Procedure, Year, and Place: cataracts Hx Anesthesia Reactions: - UNSURE Infectious Disease History: Reports: Hx Shingles - treated Denies: Traveled Outside the [place] in Last 30 Days - Family History Known Family History: Positive: Hypertension - Social History Occupation: Retired Lives: [facility] Alcohol Use: None Substance Use Type: Reports: None Smoking Status (MU): Never Smoked Tobacco Review of Systems Negative: Fever Positive: Epistaxis Psychological: Normal All Other Systems Reviewed And Are Negative: Yes Physical Exam Triage Information Reviewed: Yes Vital Signs On Initial Exam: Initial Vitals Temp Pulse Resp BP Pulse Ox 97.4 F 80 16 203/81 100 06/21/16 17:31 06/21/16 17:31 06/21/16 17:31 06/21/16 17:31 06/21/16 17:31 Vital Signs Reviewed: Yes Appearance: Positive: Well-Appearing, No Pain Distress Skin: Positive: Warm Head/Face: Positive: Normal Head/Face Inspection Eyes: Positive: IRINA ENT: Positive: Hearing grossly normal, Other - no nasal bleeding or dry blood noted Neck: Positive: Supple Respiratory/Lung Sounds: Positive: Breath Sounds Present Cardiovascular: Positive: RRR Abdomen Description: Positive: Nontender, Soft Musculoskeletal: Positive: Strength/ROM Intact - [place] Coma Scale Coma Scale Total: 15 Diagnostics - Vital Signs Vital Signs Temp Pulse Resp BP Pulse Ox 06/21/16 18:02 11 06/21/16 18:01 99.1 F 06/21/16 18:00 194/91 06/21/16 17:53 85 16 189/89 06/21/16 17:31 97.4 F 80 16 203/81 100 - Laboratory Lab Statement: Any lab studies that have been ordered have been reviewed, and results considered in the medical decision making process. EENT Course/Dx - Course Assessment/Plan: Patient is an 86 y/o female coming to [facility] presenting with sudden onset of one episode of epistaxis that began earlier today. The epistaxis is now resolved. She has a history of HTN. At triage, her BP was 203/ 81. She denies current use of blood thinners. Patient will be discharged with follow-up from her primary care physician. Patient is agreeable with this plan. - Diagnoses Provider Diagnoses: Epistaxis Discharge - Discharge Plan Condition: Stable Disposition: HOME Patient Education Materials: Nosebleed (ED) Referrals: Jody Lopez MD [Primary Care Provider] - Additional Instructions: Follow up with primary care provider in 48 hours. Return to the Emergency Department for new or worsening symptoms. The documentation as recorded by the Miquel saez Anna accurately reflects the service I personally performed and the decisions made by , Cheko Colvin MD.
== END 2016-06-21 20:47 | disposition home or self-care (01) ==
LOC: ED 17:22
DX: R04.0 Epistaxis (principal); Z86.79 Personal history of other diseases of the circulatory system
CPT/HCPCS: 99283

== ENCOUNTER 2016-06-28 09:28 | Emergency (ER) | payer MEDICARE ==
--- NOTE | 2016-06-28 09:58 | ED ---
Throat Pain/Nasal Congestion - HPI Summary HPI Summary: Pt presents w/ Lt sided epistaxis while eating breakfast this morning. Bleeding cause her to cough and she spit her food out at the table - appears to be upset/ embarrassed about this. Bleeding has stopped prior to arrival. Pt is quite anxious as this is the second time it's happened in the past month. SHe denies use of anticoagulants and no known trauma to nose that she recalls although admits she gets confused at times. No known head injury reported by pt or [facility] where she resides. Denies nausea, vomiting, diarrhea, chest pain or ab pain. She does have a high level of anxiety and h/o elevated BP (systolic in 200's) - BP is WNL today. [facility] staff requesting ENT referral w/ recurrent epistaxis. - History of Current Complaint Chief Complaint: EDEpistaxis Time Seen by Provider: 06/28/16 09:55 Hx Obtained From: Patient - Allergies/Home Medications Allergies/Adverse Reactions: Allergies Allergy/AdvReac Type Severity Reaction Status Date / Time No Known Allergies Allergy Verified 06/28/16 09:46 PMH/Surg Hx/FS Hx/Imm Hx Previously Healthy: Yes Endocrine/Hematology History: Reports: Hx Thyroid Disease Denies: Hx Blood Disorders, Hx Coagulopothy Cardiovascular History: Reports: Hx Hypertension Sensory History: Reports: Hx Contacts or Glasses Opthamlomology History: Reports: Hx Contacts or Glasses Psychiatric History: Reports: Hx Anxiety - Surgical History Surgery Procedure, Year, and Place: cataracts Hx Anesthesia Reactions: - UNSURE Infectious Disease History: No Infectious Disease History: Reports: Hx Shingles - treated Denies: Traveled Outside the [place] in Last 30 Days - Family History Known Family History: Positive: Hypertension - Social History Occupation: Retired [facility] Alcohol Use: None Hx Substance Use: No Substance Use Type: Reports: None Hx Tobacco Use: No Smoking Status (MU): Never Smoked Tobacco Review of Systems Negative: Fever, Chills Positive: Epistaxis - see HPI. Negative: Sore Throat, Ear Ache, Nasal Discharge Negative: Chest Pain Negative: Shortness Of Breath Negative: Abdominal Pain, Vomiting, Diarrhea, Nausea Positive: no symptoms reported Musculoskeletal: Negative Skin: Negative Negative: Headache Positive: Anxious All Other Systems Reviewed And Are Negative: Yes Physical Exam Triage Information Reviewed: Yes Vital Signs On Initial Exam: Initial Vitals Temp Pulse Resp BP Pulse Ox 98.2 F 90 20 139/74 100 06/28/16 09:33 06/28/16 09:33 06/28/16 09:33 06/28/16 09:33 06/28/16 09:33 Vital Signs Reviewed: Yes Appearance: Positive: Well-Appearing, No Pain Distress, Well-Nourished - anxious Skin: Positive: Warm, Dry Head/Face: Positive: Normal Head/Face Inspection Eyes: Positive: Normal, EOMI, Conjunctiva Clear ENT: Positive: Hearing grossly normal, Pharynx normal - no blood along pharyngeal wall or within oral cavity, TMs normal - no hemotympanum. Negative: Nasal congestion, Nasal drainage - LT nares w/ pinpoint erythema over anterior septal wall - appears to be the source of recent bleed; she also has scant dried blood around Left nare - no other blood (active or dried) observed. Tissue which she placed to nose to stop bleeding initially is w/ minimal blood soaking. Dental: Positive: Other - multiple amalgom fillings Neck: Positive: Supple, Nontender Respiratory/Lung Sounds: Positive: Clear to Auscultation, Breath Sounds Present Cardiovascular: Positive: Normal Abdomen Description: Positive: Nontender, Soft Musculoskeletal: Positive: Normal, Strength/ROM Intact Neurological: Positive: Normal, Sensory/Motor Intact, Alert, Oriented to Person Place, Time - she recalls most details however gets anxious and flustered at times, CN Intact II-III Psychiatric: Positive: Anxious Procedures - Procedure Summary Procedure Summary: Applied small amount of silver nitrate to area of concern in Lt nare. Area completely covered and cautery successful - no complications and pt tolerated well. Diagnostics - Vital Signs Vital Signs Temp Pulse Resp BP Pulse Ox 06/28/16 09:35 98.2 F 90 20 139/74 100 06/28/16 09:33 98.2 F 90 20 139/74 100 - Laboratory Result Diagrams: 06/28/16 10:10 Lab Statement: Any lab studies that have been ordered have been reviewed, and results considered in the medical decision making process. EENT Course/Dx - Course Course Of Treatment: Pt's epistaxis had ceased prior to arrival however she was extremely anxious this might happen yet again so area of suspected origin was chemically cauterized. Pt tolerated well. Advised if epistaxis returns, to lean forward and pinch the soft part of her distal nose for 20 consecutive minutes. If bleeding continues, return to ED. She may follow-up with ENT if epistaxis returns. No large apparent vessels appear to be involved in the anterior plexus and w/o active bleeding, tough to see if something more serious was going on during time of active bleeding. ENT can evaluate with more thorough inspection if problem continues. Education about digital trauma - pt agrees w/ plan. - Diagnoses Provider Diagnoses: Epistaxis, recurrent Discharge - Discharge Plan Condition: Stable Disposition: HOME Patient Education Materials: Nosebleed (ED) Referrals: Jody Lopez MD [Primary Care Provider] - Additional Instructions: Your area of concern was cheimcally cauterized today. If nose bleed returns, you may lean forward and pinch soft part of nose for 20 consecutive minutes. If bleeding continues after this time, return to ED. You may follow-up with ENT if nosebleeds return - otherwise, appears well controlled at this time. If you want to see ENT for this issue, call to make an appointment. Contact information provided below.
[2016-06-28 10:19] LABS: Hematocrit 34 % (35-47); Hemoglobin 11.4 g/dl (12.0-16.0); Mean Corpuscular HGB Conc 33 g/dl (31-36); Mean Corpuscular Hemoglobin 27 pg (27-31); Mean Corpuscular Volume 82 fL (80-97); Mean Platelet Volume 9 um3 (7.4-10.4); Red Blood Count 4.19 10^6/ul (4.0-5.4); Red Cell Distribution Width 15 % (10.5-15); White Blood Count 10.2 10^3/ul (3.5-10.8)
[2016-06-28 10:48] LABS: Albumin 3.8 g/dL (3.2-5.2); BUN/Creatinine Ratio 14.5 (8-20); Calcium 9.3 mg/dL (8.6-10.3); EGFR African American 56.5 (>60); Globulin 3.6 g/dL (2-4); Potassium 3.8 mmol/L (3.5-5.0); Total Bilirubin 0.6 mg/dL (0.2-1.0); Total Protein 7.4 g/dL (6.4-8.9)
[2016-06-28 10:50] VITALS: BP 160/73
== END 2016-06-28 10:48 | disposition home or self-care (01) ==
LOC: ED 09:28
DX: R04.0 Epistaxis (principal); R05 Cough; F41.9 Anxiety disorder, unspecified
CPT/HCPCS: 36415; 80053; 85025; 85610; 85730; 99282

== ENCOUNTER 2016-07-13 10:16 | Emergency (ER) | payer MEDICARE ==
[2016-07-13 10:47] VITALS: BP 120/69
--- NOTE | 2016-07-13 10:59 | UC ---
General HPI - HPI Summary HPI Summary: Here with her son complaint of skin tear on her left arm that occurered 3-4 days ago the RN at her living facility-[facility]- noticed that it has gotten wider and red area around the area denies any pain in her arm denies fever and chills - History of Current Complaint Chief Complaint: UCSkin Stated Complaint: SKIN ABRASION Time Seen by Provider: 07/13/16 10:53 Hx Obtained From: Patient - Allergy/Home Medications Allergies/Adverse Reactions: Allergies Allergy/AdvReac Type Severity Reaction Status Date / Time No Known Allergies Allergy Verified 07/13/16 10:49 Home Medications: Home Medications Clotrimazole 1% CREAM* [Clotrimazole 1%*] 1 applic TOPICAL DAILY 07/13/16 [ History Confirmed 07/13/16] Sertraline* [Zoloft*] 2 tab PO DAILY 07/13/16 [History Confirmed 07/13/16] PMH/Surg Hx/FS Hx/Imm Hx Previously Healthy: Yes Endocrine History Of: Reports: Thyroid Disease Cardiovascular History Of: Reports: Hypertension Psychological History Of: Reports: Anxiety - Surgical History Surgical History: Yes Surgery Procedure, Year, and Place: cataracts - Family History Known Family History: Positive: Hypertension Negative: Cardiac Disease, Diabetes - Social History Occupation: Retired Lives: Assisted Living Alcohol Use: Occasionally Alcohol Amount: 1 x week Substance Use Type: None Smoking Status (MU): Former Smoker - Immunization History Most Recent Influenza Vaccination: 12/05/2015 Most Recent Tetanus Shot: unsure Most Recent Pneumonia Vaccination: 05/2012 Review of Systems Constitutional: Negative Skin: Other - skin tear Eyes: Negative ENT: Negative Respiratory: Negative Cardiovascular: Negative Gastrointestinal: Negative Genitourinary: Negative Motor: Negative Neurovascular: Negative Musculoskeletal: Negative Neurological: Negative Psychological: Negative All Other Systems Reviewed And Are Negative: Yes Physical Exam Triage Information Reviewed: Yes Appearance: No Pain Distress, Well-Nourished, Thin Vital Signs: Initial Vital Signs Temp 98.7 F 07/13/16 10:35 Pulse 83 07/13/16 10:35 Resp 16 07/13/16 10:35 BP 120/69 07/13/16 10:35 Pulse Ox 98 07/13/16 10:35 Vital Signs Reviewed: Yes Eyes: Positive: Conjunctiva Clear ENT: Positive: Pharynx normal, TMs normal Neck: Positive: No Lymphadenopathy Respiratory: Positive: Lungs clear, Normal breath sounds, No respiratory distress, No accessory muscle use Cardiovascular: Positive: RRR, No Murmur, Pulses Normal Abdomen Description: Positive: Nontender, Soft Bowel Sounds: Positive: Present Musculoskeletal: Positive: No Edema Neurological: Positive: Alert Psychological Exam: Normal Skin Exam: Other - left forearm with 3 cm skin tear- 4x5 cm area of erythema surrounding skin tear Course/Dx - Course Course Of Treatment: exam completed. will treat for cellulitis suroudning skin tear with keflex. left forearm area of cellulitis marked. followup in 2-3 days with PCP - Differential Dx - Multi-Symptom Differential Diagnoses: Other - skin tear, laceration, cellulitis Provider Diagnoses: skin tear left arm with surrounding cellulitis Discharge - Discharge Plan Condition: Stable Disposition: HOME Prescriptions: Cephalexin CAP* [Keflex CAP*] 500 mg PO TID #21 cap Patient Education Materials: Skin Tear (ED), Cellulitis (ED) Referrals: Jody Lopez MD [Primary Care Provider] - Additional Instructions: Skin tear change bandage daily and wrap arm with mary anne wrap Please review your discharge instructions. If your symptoms do not improve please call your primary care provider or return to urgent care. CELLULITIS What is Cellulitis? Cellulitis is a bacterial infection of the skin and, sometimes, of the tissues beneath the skin. The skin normally has many types of bacteria on it, but intact skin is an effective barrier that keeps bacteria from entering and growing within the body. When there is a break in the skin, bacteria can enter the body and grow there, causing infection. The infection usually affects outer layers of the skin first, and then spreads deeper into body tissues. Cellulitis can affect any area of the body covered by skin, but it is most common on the face or lower part of the legs. Symptoms Might Include: Skin redness that increases in size as the infection spreads Tight, glossy, "stretched" appearance of the skin Pain or tenderness of the area The affected area may be warm or hot to the touch A thin red line (along a vein) from the cellulitis toward the heart Fever Chills, shaking Muscle aches pains Joint stiffness because of swelling around a joint Treatment Recommendations: The healthcare provider may have prescribed an antibiotic medicine. The medicine should be taken until it is completely gone, even if you are feeling better. If you stop taking the medicine early, the infection may not be completely gone, and the medication may not work the next time. If the infection is on your arm or leg, keep it elevated. You may use warm, wet compresses to relieve the pain and help healing. Soak a clean cloth in warm water, wring it out a little, and apply it to the affected site. Leave the soak in place for 15 minutes and repeat often throughout the day. Rest until the fever is gone and the pain and redness have lessened. You may take ibuprofen (Motrin, Advil), or acetaminophen (Tylenol) for pain. These will help ease some of the symptoms but will not cure the infection. Call Your Doctor or Return Here IF: Your fever does not go down with treatment, or it increases to more than 101 F. You are not starting to get better with the treatment within 24 to 36 hours. You have increasing pain, swelling, or chills. You feel drowsy and lethargic, or you have vomiting or diarrhea. You find the redness is spreading or there are red streaks coming from the infected area. The joint or bone under the infected skin becomes painful after the skin has started to heal. You have any new symptoms that worry you.
== END 2016-07-13 11:37 | disposition home or self-care (01) ==
LOC: UCEAST 10:16
DX: L03.114 Cellulitis of left upper limb (principal); E07.9 Disorder of thyroid, unspecified; I10 Essential (primary) hypertension; F41.9 Anxiety disorder, unspecified; Z87.891 Personal history of nicotine dependence
CPT/HCPCS: 99212; G0463

== ENCOUNTER 2016-07-28 21:14 | Emergency (ER) | payer MEDICARE ==
[2016-07-28 21:19] VITALS: BP 180/82
--- NOTE | 2016-07-28 22:37 | ED ---
Throat Pain/Nasal Congestion - HPI Summary HPI Summary: 86 female brought in via ambulance from [facility] unit with complains of nosebleed >25 minutes. Staff attempted pressure and ice pack without relief. Required to send after 15 minutes. Patient has HTN and takes medication in the morning. Denies dizziness, headache, vision changes, nausea and vomiting. Nosebleed has spontaneously resolved since arrival to ED. Denies any trauma. Difficult history to obtain by patient due to dementia. Is A&Ox3. No trauma or injury. Did not fall, hit head and no LOC. - History of Current Complaint Chief Complaint: EDEpistaxis Time Seen by Provider: 07/28/16 21:50 Hx Obtained From: Patient Onset/Duration: Sudden Onset, Lasting Minutes Severity: Moderate Associated Signs And Symptoms: Positive: Nasal Discharge - bleeding - Allergies/Home Medications Allergies/Adverse Reactions: Allergies Allergy/AdvReac Type Severity Reaction Status Date / Time No Known Allergies Allergy Verified 07/13/16 10:49 PMH/Surg Hx/FS Hx/Imm Hx Endocrine/Hematology History: Reports: Hx Thyroid Disease Denies: Hx Blood Disorders Cardiovascular History: Reports: Hx Hypertension Sensory History: Reports: Hx Contacts or Glasses Opthamlomology History: Reports: Hx Contacts or Glasses Psychiatric History: Reports: Hx Anxiety - Surgical History Surgery Procedure, Year, and Place: cataracts Hx Anesthesia Reactions: - UNSURE - Immunization History Immunizations Up to Date: Yes Infectious Disease History: No Infectious Disease History: Reports: Hx Shingles - treated Denies: Traveled Outside the [place] in Last 30 Days - Family History Known Family History: Positive: Hypertension Negative: Cardiac Disease, Diabetes - Social History Alcohol Use: Occasionally Alcohol Amount: 1 x week Hx Substance Use: No Substance Use Type: Reports: None Hx Tobacco Use: No Smoking Status (MU): Former Smoker Review of Systems Constitutional: Negative Eyes: Negative Positive: Epistaxis Cardiovascular: Negative Respiratory: Negative Gastrointestinal: Negative Musculoskeletal: Negative Skin: Negative Neurological: Negative All Other Systems Reviewed And Are Negative: Yes Physical Exam Triage Information Reviewed: Yes Vital Signs On Initial Exam: Initial Vitals Temp Pulse Resp BP Pulse Ox 98.0 F 88 20 180/82 98 07/28/16 21:16 07/28/16 21:16 07/28/16 21:16 07/28/16 21:16 07/28/16 21:16 BP elevated throughout visit. diagnosed with HTN only takes medication in morning. unknown BP at night. appears chronic. follow up and monitor until appointment with PCP. could of been cause of nosebleed. Vital Signs Reviewed: Yes Completion Of Physical Exam Limited Due To: Dementia Appearance: Positive: Well-Appearing, No Pain Distress, Well-Nourished. Negative: Signs of Trauma Skin: Positive: Warm, Skin Color Reflects Adequate Perfusion, Dry. Negative: Pale Head/Face: Positive: Normal Head/Face Inspection, Other - no raccons eyes, battles signs or crepitus, no facial tenderness or obvious signs of trauma. Negative: Cephalohematoma Eyes: Positive: Normal, Conjunctiva Clear ENT: Positive: Normal ENT inspection, Hearing grossly normal, Pharynx normal, Nasal drainage - dried blood noted on left nostril, no sign of active bleeding on exam, could not find source. episaxis had resolved upon examination. patient was watched for re-curring epistaxis for 1 hour and did not recur., TMs normal. Negative: Nasal congestion, Tonsillar swelling, Tonsillar exudate, Trismus Dental: Negative: Cervical Lymphadenopathy Neck: Positive: Supple, Nontender Respiratory/Lung Sounds: Positive: Clear to Auscultation, Breath Sounds Present Cardiovascular: Positive: Normal, RRR, Pulses are Symmetrical in both Upper and Lower Extremities Abdomen Description: Positive: Nontender Bowel Sounds: Positive: Present Musculoskeletal: Positive: Normal, Strength/ROM Intact Neurological: Positive: Normal, Sensory/Motor Intact, Alert, Oriented to Person Place, Time Diagnostics - Vital Signs Vital Signs Temp Pulse Resp BP Pulse Ox 07/28/16 21:16 98.0 F 88 20 180/82 98 - Laboratory Lab Statement: Any lab studies that have been ordered have been reviewed, and results considered in the medical decision making process. Re-Evaluation - Re-Evaluation First Eval Re-Evaluation Time: 22:30 Change: Improved - epistaxis had resolved spontaneously EENT Course/Dx - Course Course Of Treatment: epistaxis had resolved spontaneously. did not re occur while in ED under observation. BP elevated and is probably chronic with long standing history of HTN. Ran by Dr Colvin instructed to d/c and have staff at [facility] take BP at night to monitor and close follow up with PCP for med adjustment as this may have caused epistaxis. Aware or worsening signs and symptoms to watch out for. Difficult history and explaining course of treatment due to patient's dementia. - Differential Diagnoses Differential Diagnoses: Epistaxis - Diagnoses Provider Diagnoses: Epistaxis not due to trauma, Hypertension - Provider Notifications Discussed Care of Patient with: Dr Colvin Discharge - Discharge Plan Condition: Stable Disposition: HOME Patient Education Materials: Nosebleed (ED), Chronic Hypertension (ED) Referrals: Jody Lopez MD [Primary Care Provider] - Additional Instructions: If bleeding recurs please apply firm pressure at bridge of nose for 5 minutes and lean forward. Also apply ice pack. Humidified air in bedroom. Please check BP before bedtime and make an appointment with primary care provider for follow up on hypertension as additional medication may be needed. High blood pressure may be the cause of her nose bleed. If blood pressure is over 200 systolic and nose bleed recurs for greater than 20 minutes, return. If new symptoms of vision changes, headache, lethargy or vomiting occur please return promptly. Follow up with primary care provider.
== END 2016-07-28 23:48 | disposition home or self-care (01) ==
LOC: ED 21:14
DX: R04.0 Epistaxis (principal); F03.90 Unspecified dementia, unspecified severity, without behavioral disturbance, psychotic disturbance, mood disturbance, and anxiety; Z87.891 Personal history of nicotine dependence; I10 Essential (primary) hypertension
CPT/HCPCS: 99282

== ENCOUNTER 2016-08-02 17:06 | Inpatient (IN) | payer MEDICARE ==
[2016-08-02] MEDS ORDERED: Ondansetron INJ* 2 MG/ML VIAL IV ONE (18:14)
[2016-08-02] MEDS ORDERED: NS 0.9% 1000 ML* 3,000 ML IV ONE (18:14)
[2016-08-02 18:32] LABS: Hematocrit 35 % (35-47); Hemoglobin 11.6 g/dl (12.0-16.0); Mean Corpuscular HGB Conc 33 g/dl (31-36); Mean Corpuscular Hemoglobin 27 pg (27-31); Mean Corpuscular Volume 79 fL (80-97); Mean Platelet Volume 9 um3 (7.4-10.4); Red Blood Count 4.37 10^6/ul (4.0-5.4); Red Cell Distribution Width 15 % (10.5-15); White Blood Count 5.3 10^3/ul (3.5-10.8)
[2016-08-02 18:51] LABS: Troponin I 0.05 ng/mL (<0.04)
[2016-08-02 18:52] LABS: Albumin 3.7 g/dL (3.2-5.2); BUN/Creatinine Ratio 20.2 (8-20); C Reactive Protein 22.95 mg/L (< 5.00); Calcium 8.8 mg/dL (8.6-10.3); EGFR African American 55.4 (>60); EGFR Non-African American 43.1 (>60); Globulin 3.5 g/dL (2-4); Magnesium 1.8 mg/dL (1.9-2.7); Total Bilirubin 0.3 mg/dL (0.2-1.0); Total Protein 7.2 g/dL (6.4-8.9)
[2016-08-02 18:54] LABS: Potassium 2.6 mmol/L (3.5-5.0)
[2016-08-02] MEDS ORDERED: KCL 20 MEQ/100 ML IVPREMIX* 20 MEQ/100 ML BAG IV ONE (18:54)
--- NOTE | 2016-08-02 19:09 | RAD ---
Indication: Shortness of breath, pneumonia. Single frontal view of the chest performed at 1826 hours was reviewed. Comparison is made with previous exam dated May 06, 2016. A superiorly subluxed humeral head is noted bilaterally. No mediastinal shift is noted. Heart is of normal size and configuration. Lung varghese are clear. IMPRESSION: NO ACTIVE CARDIOPULMONARY DISEASE IS NOTED.
[2016-08-02] MEDS ORDERED: Iodixanol* (CONTRAST) 320 MG/ML 100 ML SDV IV ONE (20:13)
--- NOTE | 2016-08-02 21:25 | RAD ---
Indication: Abdominal pain, vomiting and diarrhea. Contrast: Administered 91.1 ml of VISAPAQUE 320 mgi/ml CT of the abdomen and pelvis was performed after oral and IV contrast administration. Coronal and sagittal reconstructed images were obtained. No prior study is available for comparison. The lung bases demonstrate no pleural fluid, nodules or masses. Heart is of normal size without evidence of pericardial effusion. Liver is normal in size. No focal lesions or intrahepatic ductal dilatation is noted. The gallbladder is not visualized. Correlation with clinical history is suggested for cholecystectomy. Common duct is not dilated. The right adrenal is unremarkable. Left adrenal is unremarkable. The kidneys demonstrate symmetric nephrograms with cortical cysts in both kidneys. The aorta is extremely tortuous. No aneurysmal dilatation is noted. The spleen is normal in size. Pancreas demonstrates no mass or pancreatic duct dilatation. . No dilated loops of bowel are noted. The colon is filled with contrast. No evidence of bowel obstruction is noted. The urinary bladder is unremarkable. No focal wall thickening of the colon is noted however. The uterus and ovaries are grossly unremarkable. No hernias are noted. IMPRESSION: NO EVIDENCE OF BOWEL OBSTRUCTION IS NOTED. GALLBLADDER IS NOT VISUALIZED. BILATERAL RENAL CYSTS ARE NOTED. NO ANEURYSMAL DILATATION IS NOTED. NO FOCAL WALL THICKENING OF THE COLON IS NOTED.
--- NOTE | 2016-08-02 22:14 | ED ---
Pamela Barrera Auryana, scribed for Ted Hurst MD on 08/02/16 at 1808 . GI/ HPI - HPI Summary HPI Summary: 86 year old female presents with nausea and vomiting starting 2-3 weeks ago. She also has diarrhea (many times a day) and decreased appetite. She denies any CP, SOB, blood in stool. No recent ABX use and no blood thinners. PMHx is significant DM but denies any history of NH or TIA/CVA. She denies any tobacco or alcohol use. She currently lives at [place]. - History of Current Complaint Chief Complaint: EDNauseaVomitDiarrh Time Seen by Provider: 08/02/16 17:47 Stated Complaint: GENERAL ILLNESS Hx Obtained From: Patient Hx From Patient Unobtainable Due To: Other Onset/Duration: Started Weeks Ago - 2-3 weeks ago, Still Present Timing: Constant Severity: Mild Current Severity: Mild Pain Intensity: 4 Associated Signs and Symptoms: Positive: Nausea, Vomiting, Diarrhea. Negative: Blood w/Stool - Additional Pertinent History Primary Care Physician: HANNAH - Allergy/Home Medications Allergies/Adverse Reactions: Allergies Allergy/AdvReac Type Severity Reaction Status Date / Time No Known Allergies Allergy Verified 08/02/16 17:16 Home Medications: Home Medications Acetaminophen TAB* [Tylenol TAB*] 650 mg PO Q4H PRN MDD 2600 MG 08/02/16 [ History Confirmed 08/02/16] Acetaminophen [Acetaminophen ER] 650 mg PO BID PRN 08/02/16 [History Confirmed 08/02/16] Albuterol HFA INHALER* [Ventolin HFA Inhaler*] 2 puff INH Q6H PRN 08/02/16 [ History Confirmed 08/02/16] Calcium Carbonate-Vitamin D [Calcium 600 + D] 1 tab PO DAILY 08/02/16 [History Confirmed 08/02/16] Donepezil TAB* [Aricept 5 MG TAB*] 5 mg PO BEDTIME 08/02/16 [History Confirmed 08/02/16] Emollient [Lubriderm] 1 lot TOPICAL BEDTIME PRN 08/02/16 [History Confirmed ] Famotidine TAB* [Pepcid 20 MG TAB*] 40 mg PO BEDTIME 08/02/16 [History Confirmed 08/02/16] Fluticas/Salmet 230/21 HFA(NF) [Advair HFA 23O/21 (NF)] 2 puff INH BID 08/02/16 [History Confirmed 08/02/16] Losartan TAB* [Cozaar TAB*] 50 mg PO DAILY 08/02/16 [History Confirmed 08/02/16] Multiple Vitamins W/ Minerals [Eye Vitamins & Minerals] 2 tab PO BID 08/02/16 [ History Confirmed 08/02/16] Multivitamins/Minerals TAB* [Theragran/minerals TAB*] 1 tab PO DAILY 08/02/16 [ History Confirmed 08/02/16] Pantoprazole TAB (NF) [Protonix TAB (NF)] 40 mg PO DAILY 08/02/16 [History Confirmed 08/02/16] Sertraline* [Zoloft*] 50 mg PO DAILY 08/02/16 [History Confirmed 08/02/16] amLODIPine TAB* [Norvasc 5 mg TAB*] 5 mg PO DAILY 08/02/16 [History Confirmed ] PMH/Surg Hx/FS Hx/Imm Hx Endocrine/Hematology History: Reports: Hx Thyroid Disease Denies: Hx Blood Disorders Cardiovascular History: Reports: Hx Hypertension Sensory History: Reports: Hx Contacts or Glasses Opthamlomology History: Reports: Hx Contacts or Glasses Psychiatric History: Reports: Hx Anxiety - Surgical History Surgery Procedure, Year, and Place: cataracts Hx Anesthesia Reactions: - UNSURE Infectious Disease History: No Infectious Disease History: Reports: Hx Shingles - treated Denies: Traveled Outside the [place] in Last 30 Days - Family History Known Family History: Positive: Hypertension Negative: Cardiac Disease, Diabetes - Social History Occupation: Retired Lives: At [facility] Alcohol Use: Occasionally Alcohol Amount: 1 x week Hx Substance Use: No Substance Use Type: Reports: None Hx Tobacco Use: No Smoking Status (MU): Former Smoker Review of Systems Constitutional: Negative Negative: Fever Eyes: Negative ENT: Negative Cardiovascular: Negative Respiratory: Negative Positive: Vomiting, Diarrhea, Nausea Genitourinary: Negative Musculoskeletal: Negative Skin: Negative Neurological: Negative Psychological: Normal All Other Systems Reviewed And Are Negative: Yes Physical Exam - Summary Physical Exam Summary: The patient is well-nourished in no acute distress and in no acute pain. The skin is warm and dry and skin color reflects adequate perfusion. No diaphoresis. Decreased skin turgor HEENT: The head is normocephalic and atraumatic. The pupils are equal and reactive. The conjunctivae are clear and without drainage. Nares are patent and without drainage. Mouth reveals dry mucous membranes and the throat is without erythema and exudate. The external ears are intact. The ear canals are patent and without drainage. The tympanic membranes are intact. Neck is supple with full range of motion and non-tender. There are no carotid bruits. There is no neck vein distension. Respiratory: Chest is non-tender. Lungs are clear to auscultation and breath sounds are symmetrical and equal. Seems tacypnea. Cardiovascular: Heart is irregular rate and rhythm- not tachycardic . There is no murmur or rub auscultated. There is no peripheral edema and pulses are symmetrical and equal. Abdomen: The abdomen is soft and non-tender. There are normal bowel sounds heard in all four quadrants and there is no organomegaly palpated. Musculoskeletal: There is no back pain noted. Extremities are non-tender with full range of motion. There is good capillary refill - 2 seconds . There is no peripheral edema or calf tenderness elicited. Neurological: Patient is alert and oriented to person, place and time. The patient has symmetrical motor strength in all four extremities. Cranial nerves are grossly intact. Deep tendon reflexes are symmetrical and equal in all four extremities. Psychiatric: The patient has an appropriate affect and does not exhibit any anxiety or depression. Triage Information Reviewed: Yes Vital Signs On Initial Exam: Initial Vitals Temp Pulse Resp BP Pulse Ox 97.2 F 96 22 134/73 100 08/02/16 17:06 08/02/16 17:06 08/02/16 17:06 08/02/16 17:06 08/02/16 17:06 Vital Signs Reviewed: Yes - [place] Coma Scale Coma Scale Total: 15 Diagnostics - Vital Signs Vital Signs Temp Pulse Resp BP Pulse Ox 08/02/16 17:06 97.2 F 96 22 134/73 100 - Laboratory Lab Results: Lab Results 08/02/16 08/02/16 08/02/16 Range/Units 18:20 18:20 18:20 WBC 5.3 (3.5-10.8) 10^3/ul RBC 4.37 (4.0-5.4) 10^6/ul Hgb 11.6 L (12.0-16.0) g/dl Hct 35 (35-47) % MCV 79 L (80-97) fL MCH 27 (27-31) pg MCHC 33 (31-36) g/dl RDW 15 (10.5-15) % Plt Count 208 (150-450) 10^3/ul MPV 9 (7.4-10.4) um3 Neut % (Auto) 57.5 (38-83) % Lymph % (Auto) 25.6 (25-47) % [place] % (Auto) 15.3 H (1-9) % Eos % (Auto) 1.0 (0-6) % Baso % (Auto) 0.6 (0-2) % Absolute Neuts (auto) 3.0 (1.5-7.7) 10^3/ul Absolute Lymphs (auto) 1.4 (1.0-4.8) 10^3/ul Absolute Monos (auto) 0.8 (0-0.8) 10^3/ul Absolute Eos (auto) 0.1 (0-0.6) 10^3/ul Absolute Basos (auto) 0 (0-0.2) 10^3/ul Absolute Nucleated RBC 0.01 10^3/ul Nucleated RBC % 0.1 Sodium 126 L (133-145) mmol/L Potassium 2.6 L* (3.5-5.0) mmol/L Chloride 97 L (101-111) mmol/L Carbon Dioxide 19 L (22-32) mmol/L Anion Gap 10 (2-11) mmol/L BUN 24 (6-24) mg/dL Creatinine 1.19 H (0.51-0.95) mg/dL Est GFR ( Amer) 55.4 (>60) Est GFR (Non-Af Amer) 43.1 (>60) BUN/Creatinine Ratio 20.2 H (8-20) Glucose 95 (70-100) mg/dL Lactic Acid 1.0 (0.5-2.0) mmol/L Calcium 8.8 (8.6-10.3) mg/dL Magnesium 1.8 L (1.9-2.7) mg/dL Total Bilirubin 0.30 (0.2-1.0) mg/dL AST 29 (13-39) U/L ALT 16 (7-52) U/L Alkaline Phosphatase 70 (34-104) U/L Total Creatine Kinase 65 (10-223) U/L Troponin I 0.05 H* (<0.04) ng/mL C-Reactive Protein 22.95 H (< 5.00) mg/L B-Natriuretic Peptide ( - 100) pg/mL Total Protein 7.2 (6.4-8.9) g/dL Albumin 3.7 (3.2-5.2) g/dL Globulin 3.5 (2-4) g/dL Albumin/Globulin Ratio 1.1 (1-3) Amylase 63 (29-103) U/L Lipase 60 (11.0-82.0) U/L 08/02/16 Range/Units 18:20 WBC (3.5-10.8) 10^3/ul RBC (4.0-5.4) 10^6/ul Hgb (12.0-16.0) g/dl Hct (35-47) % MCV (80-97) fL MCH (27-31) pg MCHC (31-36) g/dl RDW (10.5-15) % Plt Count (150-450) 10^3/ul MPV (7.4-10.4) um3 Neut % (Auto) (38-83) % Lymph % (Auto) (25-47) % [place] % (Auto) (1-9) % Eos % (Auto) (0-6) % Baso % (Auto) (0-2) % Absolute Neuts (auto) (1.5-7.7) 10^3/ul Absolute Lymphs (auto) (1.0-4.8) 10^3/ul Absolute Monos (auto) (0-0.8) 10^3/ul Absolute Eos (auto) (0-0.6) 10^3/ul Absolute Basos (auto) (0-0.2) 10^3/ul Absolute Nucleated RBC 10^3/ul Nucleated RBC % Sodium (133-145) mmol/L Potassium (3.5-5.0) mmol/L Chloride (101-111) mmol/L Carbon Dioxide (22-32) mmol/L Anion Gap (2-11) mmol/L BUN (6-24) mg/dL Creatinine (0.51-0.95) mg/dL Est GFR ( Amer) (>60) Est GFR (Non-Af Amer) (>60) BUN/Creatinine Ratio (8-20) Glucose (70-100) mg/dL Lactic Acid (0.5-2.0) mmol/L Calcium (8.6-10.3) mg/dL Magnesium (1.9-2.7) mg/dL Total Bilirubin (0.2-1.0) mg/dL AST (13-39) U/L ALT (7-52) U/L Alkaline Phosphatase (34-104) U/L Total Creatine Kinase (10-223) U/L Troponin I (<0.04) ng/mL C-Reactive Protein (< 5.00) mg/L B-Natriuretic Peptide 58 ( - 100) pg/mL Total Protein (6.4-8.9) g/dL Albumin (3.2-5.2) g/dL Globulin (2-4) g/dL Albumin/Globulin Ratio (1-3) Amylase (29-103) U/L Lipase (11.0-82.0) U/L Result Diagrams: 08/02/16 18:20 08/02/16 18:20 Lab Statement: Any lab studies that have been ordered have been reviewed, and results considered in the medical decision making process. - Radiology CXR Xray Interpretation: No Acute Changes Radiology Interpretation Completed By: Radiologist - CT ABD/PEL with contrast CT Interpretation: Positive (See Comments) - IMPRESSION: NO EVIDENCE OF BOWEL OBSTRUCTION IS NOTED. GALLBLADDER IS NOT VISUALIZED. BILATERAL RENAL CYSTS ARE NOTED. NO ANEURYSMAL DILATATION IS NOTED. NO FOCAL WALL THICKENING OF THE COLON IS NOTED. CT Interpretation Completed By: Radiologist - EKG 18:11 ST Segment: Non-Specific - changes Ectopy: PACs EKG Interpretation: sinus with PACs, no STEMI, L axis, old inferior & anterior NH, no STEMI GIGU Course/Dx - Course Assessment/Plan: 86 year old female presents with nausea and vomiting starting 2 -3 weeks ago. She also has diarrhea (many times a day) and decreased appetite. She denies any CP, SOB, blood in stool. No recent ABX use and no blood thinners. PMHx is significant DM but denies any history of NH or TIA/CVA. She denies any tobacco or alcohol use. She currently lives at [place]. LABS ordered: troponin 0.05, low potassium (2.6), and elevated CRP (22.95); lipase, amylase, lactic, and BNP - WNL. Given normal saline, zofran, and heparin. CXR ordered - negative. CT ABD/PEL: IMPRESSION: NO EVIDENCE OF BOWEL OBSTRUCTION IS NOTED. GALLBLADDER IS NOT VISUALIZED. BILATERAL RENAL CYSTS ARE NOTED. NO ANEURYSMAL DILATATION IS NOTED. NO FOCAL WALL THICKENING OF THE COLON IS NOTED. Consult to hospitalist (Dr. Nj) at 19:38 and agrees [place] [facility] [place] DX: dehydration adn hypokalemia. - Diagnoses Differential Diagnoses - Female: Bowel Obstruction, Colitis, Dehydration, Diverticulitis, Other - c.diff colitis, infectious diarrhea Provider Diagnoses: Dehydration, Hypokalemia - Physician Notifications Discussed Care Of Patient With: DR. NJ Time Discussed With Above Provider: 19:38 - MADE AWARE OF PATIENT - IN TO SEE IN ED FOR ADMISSION Discharge - Discharge Plan Condition: Stable Disposition: ADMITTED TO [facility] The documentation as recorded by the Pamela saez Auryana accurately reflects the service I personally performed and the decisions made by , Ted Hurst MD.
[2016-08-02] MEDS ORDERED: Acetaminophen TAB* 325 MG PO PRN (22:27)
[2016-08-02] MEDS ORDERED: Albuterol HFA INHALER* 8 gm MDI INH PRN (22:28)
[2016-08-02] MEDS ORDERED: LUBRIDERM TOPICAL PRN (22:28)
[2016-08-02] MEDS ORDERED: Moisturizing CREAM* 113 GM JAR TOPICAL PRN (22:53)
[2016-08-03] MEDS: Donepezil TAB* 5 MG PO SCH ×2 (00:12→21:37)
[2016-08-03] MEDS: Atorvastatin* 10 MG TAB PO SCH ×2 (00:12→17:51)
[2016-08-03] MEDS: Heparin VIAL(*) 5000 UNITS/ML VIAL (FIVE THOUSAND) SUBCUT SCH ×4 (00:12→21:40)
[2016-08-03] MEDS: Ondansetron INJ* 2 MG/ML VIAL IV SCH ×7 (00:12→22:50)
[2016-08-03] MEDS: NS 0.9% w/ 20 Meq KCL 1000 ML* 1,000 ML IV SCH ×3 (00:21→17:49)
[2016-08-03] MEDS: Fluconazole 100 MG TAB* TAB PO SCH ×2 (02:58→08:11)
[2016-08-03 07:12] LABS: Hematocrit 32 % (35-47); Hemoglobin 10.7 g/dl (12.0-16.0); Mean Corpuscular HGB Conc 33 g/dl (31-36); Mean Corpuscular Hemoglobin 27 pg (27-31); Mean Corpuscular Volume 79 fL (80-97); Mean Platelet Volume 9 um3 (7.4-10.4); Red Blood Count 4.06 10^6/ul (4.0-5.4); Red Cell Distribution Width 15 % (10.5-15); White Blood Count 5.2 10^3/ul (3.5-10.8)
[2016-08-03 07:22] LABS: BUN/Creatinine Ratio 18.1 (8-20); EGFR African American 64.1 (>60); EGFR Non-African American 49.8 (>60); Magnesium 1.7 mg/dL (1.9-2.7); Potassium 3.1 mmol/L (3.5-5.0)
[2016-08-03 07:26] LABS: Troponin I 0.05 ng/mL (<0.04)
[2016-08-03] MEDS: Losartan TAB* 25 MG PO SCH (08:11)
[2016-08-03] MEDS: amLODIPine TAB* 5 MG PO SCH (08:12)
[2016-08-03] MEDS: Sertraline* 50 MG TAB PO SCH (08:12)
[2016-08-03] MEDS: Clotrimazole 1% CREAM* 45 GM TOPICAL SCH (08:17)
[2016-08-03] MEDS: Mometasone/Formoter 200/5 MDI INH SCH ×2 (08:54→21:42)
[2016-08-03] MEDS: Potassium Chloride LIQUID* 20 MEQ PACKET PO SCH (10:51)
[2016-08-03] MEDS ORDERED: metroNIDAZOLE IV 500 MG/100ML* 500 MG/100 ML BAG IVPB SCH (13:00)
[2016-08-03] MEDS: metroNIDAZOLE IV 500 MG/100ML* 500 MG/100 ML BAG IVPB SCH ×2 (14:04→22:55)
[2016-08-03] MEDS ORDERED: Magnesium Sulf 4 GM/100 ML IV* 4,000 MG/100 ML BAG IVPB ONE (16:22)
[2016-08-03] MEDS ORDERED: Potassium Phosphate IV* 15 MMOLE in NS 0.9% 250 ML* 250 ML IVPB ONE (16:23)
--- NOTE | 2016-08-03 16:29 | PN ---
Subjective Date of Service: 08/03/16 Interval History: . Ongoing diarrhea; no further vomiting. Tolerating fluids well; electrolyte repletion underway. Very weak. Not ready for discharge. will admit patient. Patient not very communicative (her baseline). C. Diff test pending; started empiric flagyl given ongoing stools Family History: Unchanged from Admission Social History: Unchanged from Admission Past Medical History: Unchanged from Admission Objective Active Medications: Acetaminophen (Tylenol Tab*) 650 mg PO Q6H PRN PRN Reason: FEVER/PAIN Albuterol (Ventolin Hfa Inhaler*) 2 puff INH Q6H PRN PRN Reason: SOB/WHEEZING Amlodipine Besylate (Norvasc Tab*) 5 mg PO DAILY [facility] Last Admin: 08/03/16 08:12 Dose: 5 mg Atorvastatin Calcium (Lipitor*) 10 mg PO QPM [facility] Last Admin: 08/03/16 00:12 Dose: 10 mg Clotrimazole (Clotrimazole 1%*) 1 applic TOPICAL DAILY [facility] Last Admin: 08/03/16 08:17 Dose: 1 applic Donepezil HCl (Aricept Tab*) 5 mg PO BEDTIME [facility] Last Admin: 08/03/16 00:12 Dose: 5 mg Famotidine (Pepcid Tab*) 40 mg PO BEDTIME [facility] Fluconazole (Diflucan 100 Mg Tab*) 100 mg PO DAILY [facility] Stop: 08/08/16 09:01 Last Admin: 08/03/16 08:11 Dose: 100 mg Heparin Sodium (Porcine) (Heparin Vial(*)) 5,000 units SUBCUT Q8HR [facility] Last Admin: 08/03/16 14:05 Dose: 5,000 units Potassium Chloride/Sodium Chloride (Ns 0.9% W/ 20 Meq Kcl 1000 Ml*) 1,000 mls @ 150 mls/hr IV PER RATE [facility] Last Admin: 08/03/16 08:12 Dose: 150 mls/hr Metronidazole/Sodium Chloride (Flagyl 500 Mg Ivpb*) 500 mg in 100 mls @ 100 mls /hr IVPB Q8HR [facility] Last Admin: 08/03/16 14:04 Dose: 100 mls/hr Magnesium Sulfate (Magnesium Sulf 4 Gm/100 Ml Iv*) 4,000 mg in 100 mls @ 33.333 mls/hr IVPB ONCE ONE Stop: 08/03/16 19:21 Potassium Phosphate 15 mmole/ (Sodium Chloride) 255 mls @ 42 mls/hr IVPB ONCE ONE Stop: 08/03/16 22:27 Losartan Potassium (Cozaar Tab*) 50 mg PO DAILY [facility] Last Admin: 08/03/16 08:11 Dose: 50 mg Mometasone Furoate/Formoterol Fumar (Dulera 200/5 Mdi*) 2 puff INH BID ZOYA PRN Reason: Protocol Last Admin: 08/03/16 08:54 Dose: 2 puff Multi-Ingredient Ointment (Hydrocerin*) 1 applic TOPICAL BEDTIME PRN PRN Reason: DRY SKIN Last Admin: 08/03/16 08:11 Dose: 1 applic Ondansetron HCl (Zofran Inj*) 4 mg IV Q4H [facility] Last Admin: 08/03/16 14:05 Dose: 4 mg Potassium Chloride (Klor-Con Liquid*) 40 meq PO DAILY [facility] Last Admin: 08/03/16 10:51 Dose: 40 meq Sertraline HCl (Zoloft*) 50 mg PO DAILY [facility] Last Admin: 08/03/16 08:12 Dose: 50 mg Vital Signs 08/02/16 08/02/16 08/03/16 22:00 23:45 03:35 Temperature 98.2 F 98.8 F Pulse Rate 104 81 82 Respiratory 17 22 26 Rate Blood Pressure 136/80 139/67 (mmHg) O2 Sat by Pulse 100 100 100 Oximetry 08/03/16 08/03/16 08/03/16 07:32 08:00 08:54 Temperature 97.4 F Pulse Rate 95 80 Respiratory 16 16 Rate Blood Pressure 146/77 (mmHg) O2 Sat by Pulse 100 95 Oximetry 08/03/16 12:50 Temperature Pulse Rate 79 Respiratory 16 Rate Blood Pressure 143/69 (mmHg) O2 Sat by Pulse 100 Oximetry Appearance: frail / weak. Eyes: No Scleral Icterus Ears/Nose/Mouth/Throat: Clear Oropharnyx Neck: NL Appearance and Movements; NL JVP Respiratory: Symmetrical Chest Expansion and Respiratory Effort Cardiovascular: NL Sounds; No Murmurs; No JVD Abdominal: NL Sounds; No Tenderness; No Distention Lymphatic: No Cervical Adenopathy Extremities: No Edema Skin: No Rash or Ulcers Neurological: Alert and Oriented x 3, - Lines/Tubes/Other Access: Clean, Dry and Intact Peripheral IV Nutrition: Taking PO's Result Diagrams: 08/03/16 06:41 08/03/16 06:41 Additional Lab and Data: . Microbiology and Other Data: Microbiology 08/02/16 23:40 Nasal Screen MRSA (PCR)(JERROD) - Final Nasal Mrsa Negative Assess/Plan/Problems-Billing . Assessment: 86 yo female with ongoing diarrhea and dehydration. Strong possibility for C. Diff. Aggressive IVF/electrolyte repletion and empiric Flagyl now. - Patient Problems (1) Colitis Current Visit: Yes Status: Acute Priority: High Code(s): K52.9 - NONINFECTIVE GASTROENTERITIS AND COLITIS, UNSPECIFIED Comment: - Flagyl started - Very possible C. Diff, but test pending. - multiple electrolyte derangements -- replete and recheck. - IVF repletion. (2) Dementia Current Visit: No Status: Acute SNOMED Code(s): 17060557 Comment: - Continue Haldol PRN for agitation. - Continue Aricept. (3) Loose stools Current Visit: No Status: Acute Code(s): R19.5 - OTHER FECAL ABNORMALITIES SNOMED Code(s): 805197575 Comment: - Secondary to colitis (4) Physical deconditioning Current Visit: No Status: Acute Code(s): R53.81 - OTHER MALAISE SNOMED Code(s): 04185620010281 Comment: - patient actually fell trying to get up; still deconditioned. - still needs placement (lives at [place]).
[2016-08-03] MEDS ORDERED: Haloperidol INJ IV/IM* 5 MG/ML AMP IV SLOW PU PRN (16:31)
--- NOTE | 2016-08-03 17:17 | HP ---
CC: Jody Lopez MD ADMISSION HISTORY AND PHYSICAL: DATE OF ADMISSION: 08/02/16 CHIEF COMPLAINT: Diarrhea. HISTORY OF PRESENT ILLNESS: Ms. Wilson is an 86-year-old woman who is resident of [facility] who reports several days of diarrhea. The patient is a vague historian and records are obtained from the facility and from ER doctor as well as the patient. The patient does report she vomited some dark material today. Staff at the facility reports that she is lethargic and could not really walk to dinner. She has been eating only toast at the most and drinking liquids for the most part without problems. There is no reports of fever, blood in the stool, or bloody emesis. The patient denies abdominal pain. The patient was admitted to this hospital on May 07 with weakness and dehydration. She spent some days in bed, required a rehab stay after the hospitalization. . PAST MEDICAL HISTORY: Include: 1. Hypertension. 2. GERD. 3. Chronic anemia. 4. Osteoarthritis. 5. Anxiety. 6. Alzheimer's type dementia. 7. Hyperlipidemia. 8. Asthma. PAST SURGICAL HISTORY: Cataract removal. MEDICATIONS ON ADMISSION: 1. Acetaminophen 650 mg p.o. b.i.d. p.r.n. 2. Albuterol inhaler two puffs q.6 hours p.r.n. 3. Atorvastatin 10 mg p.o. at bedtime. 4. Calcium with vitamin D one tablet p.o. daily. 5. Clotrimazole 1% cream to area of the rash and the groin daily. 6. Donepezil 5 mg p.o. at bedtime. 7. Lupiderm topically at bedtime. 8. Famotidine 40 mg p.o. q.p.m. 9. Advair HFA 230 mcg two puffs inhaled b.i.d. 10. Losartan 50 mg p.o. daily. 11. Multivitamin with IVitamins daily. 12. Pantoprazole 40 mg p.o. daily. 13. Sertraline 50 mg p.o. daily. 14. Amlodipine 5 mg p.o. at bedtime. ALLERGIES: None. FAMILY HISTORY: The patient cannot remember. She states that her daughter of unknown causes within the last 2 years. The patient is unable to complete family history. 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 She is . She had two children and has one son who lives in [place], who is her healthcare proxy. His name is Mykel Wilson. REVIEW OF SYSTEMS: The patient denies any fevers, does have anorexia. The patient denies any chest pain or palpitations. The patient denies any cough or shortness of breath. The patient denies any abdominal pain, but does have diarrhea, nausea, and vomiting. The patient denies any hematuria or dysuria. The patient does report discomfort from rash in her groin. Remainder of her 14- point review of systems is negative other than that mentioned in the HPI. PHYSICAL EXAMINATION VITAL SIGNS: Temperature is 36.2, pulse 91, respirations 26, blood pressure 113 /78, O2 sat is 98%. GENERAL: She is alert, in no acute distress. HEENT: Head is normocephalic, atraumatic. Sclerae are anicteric. Pupils are equal, round and reactive to light and accommodation. Oropharynx is moist, no lesions. NECK: No JVD. No carotid bruit. No thyromegaly. LUNGS: Clear to auscultation and percussion bilaterally. HEART: Regular with occasional irregularities. No murmurs or gallops. ABDOMEN: Soft, nontender, nondistended. Positive bowel sounds. No hepatosplenomegaly. EXTREMITIES: No peripheral edema. Dorsalis pedis pulses are 1+ bilaterally. NEUROLOGIC: Cranial nerves II through XII are intact. She is oriented to self , but not to place or date. Motor strength is grossly intact. SKIN: Notable for erythema in her skin folds in her groin. LABORATORY DATA: Sodium 126, potassium 2.6, chloride 97, bicarbonate 19, BUN 24, creatinine 1.19, glucose 95, calcium 8.8, magnesium 1.8, albumin 3.7, AST 29 , ALT 17, bilirubin 0.3, lactic acid 1.0, troponin 0.05. CRP 22.95. BNP 58. White count 5.5, hemoglobin 11.6, hematocrit 35%, and platelets 208. 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 Q waves in III and aVF consistent with possible old IMI as well, no change from previous EKG. Abdominopelvic CT is negative for colitis, masses, does show some renal cysts. ASSESSMENT AND PLAN: An 86-year-old woman presenting with colitis versus gastroenteritis. She will be admitted to the hospital due to the severity of her electrolyte abnormalities and dehydration. She has hyponatremia, which should be corrected with intravenous crystalloids. She has hypokalemia which will be supplemented and rechecked. She will have stool sent for C. diff and she can be started on Flagyl if she has C. difficile-associated diarrhea. I will also hold the Protonix and give her only the H2 franky for her gastroesophageal reflux disease for now. Her troponin is minimally elevated, which may be due to demand ischemia. The EKG is not concerning. We will trend her troponin to follow her on telemetry to rule out cardiac ischemia. If she has further elevated troponin, we can have stress test at some point. Hypertension, we will continue her on her losartan and amlodipine. The patient is [id number] per hospital DNR. I discussed her situation with her son, Mykel in [place]. He wants her to be full code while she is here in the hospital. So a MOLST form was filled out to that effect. For her DVT prophylaxis, she will have subcutaneous heparin. She is moderate-to - high risk. [id number]/[facility] #: [id number] [facility]
[2016-08-03] MEDS: Famotidine TAB* 20 MG PO SCH (21:35)
[2016-08-03 23:24] LABS: Urine Bacteria Absent (Absent); Urine Bilirubin Negative (Negative); Urine Glucose Negative (Negative); Urine Nitrite Negative (Negative)
[2016-08-04] MEDS: Ondansetron INJ* 2 MG/ML VIAL IV SCH ×3 (03:37→11:46)
[2016-08-04] MEDS: NS 0.9% w/ 20 Meq KCL 1000 ML* 1,000 ML IV SCH (05:39)
[2016-08-04] MEDS: metroNIDAZOLE IV 500 MG/100ML* 500 MG/100 ML BAG IVPB SCH ×2 (05:40→13:28)
[2016-08-04] MEDS: Heparin VIAL(*) 5000 UNITS/ML VIAL (FIVE THOUSAND) SUBCUT SCH ×4 (05:49→20:25)
[2016-08-04 06:45] LABS: Hematocrit 32 % (35-47); Hemoglobin 10.5 g/dl (12.0-16.0); Mean Corpuscular HGB Conc 33 g/dl (31-36); Mean Corpuscular Hemoglobin 27 pg (27-31); Mean Corpuscular Volume 80 fL (80-97); Mean Platelet Volume 9 um3 (7.4-10.4); Red Blood Count 3.93 10^6/ul (4.0-5.4); Red Cell Distribution Width 15 % (10.5-15); White Blood Count 5.4 10^3/ul (3.5-10.8)
[2016-08-04 07:00] LABS: Albumin 3.1 g/dL (3.2-5.2); BUN/Creatinine Ratio 9.3 (8-20); Calcium 7.4 mg/dL (8.6-10.3); EGFR African American 80.7 (>60); EGFR Non-African American 62.7 (>60); Globulin 3.1 g/dL (2-4); Magnesium 2.2 mg/dL (1.9-2.7); Phosphorus 2.9 mg/dL (2.5-5.0); Potassium 3.2 mmol/L (3.5-5.0); Total Bilirubin 0.2 mg/dL (0.2-1.0); Total Protein 6.2 g/dL (6.4-8.9)
[2016-08-04] MEDS: Mometasone/Formoter 200/5 MDI INH SCH ×2 (08:25→20:14)
[2016-08-04] MEDS: amLODIPine TAB* 5 MG PO SCH (08:38)
[2016-08-04] MEDS: Losartan TAB* 25 MG PO SCH (08:38)
[2016-08-04] MEDS: Potassium Chloride LIQUID* 20 MEQ PACKET PO SCH (08:39)
[2016-08-04] MEDS: Sertraline* 50 MG TAB PO SCH (08:39)
[2016-08-04] MEDS: Fluconazole 100 MG TAB* TAB PO SCH (08:39)
[2016-08-04] MEDS: Clotrimazole 1% CREAM* 45 GM TOPICAL SCH (08:54)
[2016-08-04] MEDS ORDERED: Ondansetron INJ* 2 MG/ML VIAL IV PRN (11:06)
[2016-08-04] MEDS ORDERED: Potassium Chlor TAB* 10 MEQ TAB.ER PO ONE (13:26)
[2016-08-04] MEDS ORDERED: Potassium Chloride LIQUID* 20 MEQ PACKET PO ONE (14:15)
[2016-08-04] MEDS: Atorvastatin* 10 MG TAB PO SCH (17:31)
--- NOTE | 2016-08-04 17:56 | PN ---
Subjective Date of Service: 08/04/16 Interval History: . stool output decreased not c/w C. Diff --> flagyl discontinued denies pain; bvery agitated and upset about being in hospital. plan for dc tomorrow if lytes/chemistry values OK. . Family History: Unchanged from Admission Social History: Unchanged from Admission Past Medical History: Unchanged from Admission Objective Active Medications: . Acetaminophen (Tylenol Tab*) 650 mg PO Q6H PRN PRN Reason: FEVER/PAIN Albuterol (Ventolin Hfa Inhaler*) 2 puff INH Q6H PRN PRN Reason: SOB/WHEEZING Amlodipine Besylate (Norvasc Tab*) 5 mg PO DAILY [facility] Last Admin: 08/04/16 08:38 Dose: 5 mg Atorvastatin Calcium (Lipitor*) 10 mg PO QPM [facility] Last Admin: 08/04/16 17:31 Dose: 10 mg Clotrimazole (Clotrimazole 1%*) 1 applic TOPICAL DAILY [facility] Last Admin: 08/04/16 08:54 Dose: 1 applic Donepezil HCl (Aricept Tab*) 5 mg PO BEDTIME [facility] Last Admin: 08/03/16 21:37 Dose: 5 mg Famotidine (Pepcid Tab*) 40 mg PO BEDTIME [facility] Last Admin: 08/03/16 21:35 Dose: 40 mg Fluconazole (Diflucan 100 Mg Tab*) 100 mg PO DAILY [facility] Stop: 08/08/16 09:01 Last Admin: 08/04/16 08:39 Dose: 100 mg Haloperidol Lactate (Haldol Inj Iv/Im*) 1 mg IV SLOW PU Q6H PRN PRN Reason: AGITATION Heparin Sodium (Porcine) (Heparin Vial(*)) 5,000 units SUBCUT Q8HR [facility] Last Admin: 08/04/16 13:32 Dose: Not Given Metronidazole/Sodium Chloride (Flagyl 500 Mg Ivpb*) 500 mg in 100 mls @ 100 mls /hr IVPB Q8HR [facility] Last Admin: 08/04/16 13:28 Dose: 100 mls/hr Losartan Potassium (Cozaar Tab*) 50 mg PO DAILY [facility] Last Admin: 08/04/16 08:38 Dose: 50 mg Mometasone Furoate/Formoterol Fumar (Dulera 200/5 Mdi*) 2 puff INH BID OZYA PRN Reason: Protocol Last Admin: 08/04/16 08:25 Dose: 2 puff Multi-Ingredient Ointment (Hydrocerin*) 1 applic TOPICAL BEDTIME PRN PRN Reason: DRY SKIN Last Admin: 08/03/16 08:11 Dose: 1 applic Ondansetron HCl (Zofran Inj*) 4 mg IV Q4H PRN PRN Reason: NAUSEA Potassium Chloride (Klor-Con Liquid*) 40 meq PO DAILY [facility] Last Admin: 08/04/16 08:39 Dose: 40 meq Sertraline HCl (Zoloft*) 50 mg PO DAILY [facility] Last Admin: 08/04/16 08:39 Dose: 50 mg . Vital Signs 08/03/16 08/03/16 08/03/16 18:25 19:43 20:00 Temperature 97.2 F 98.2 F Pulse Rate 84 87 Respiratory 16 18 18 Rate Blood Pressure 150/64 137/68 (mmHg) O2 Sat by Pulse 99 99 Oximetry 08/03/16 08/03/16 08/04/16 21:28 21:46 00:12 Temperature 97.6 F 97.2 F Pulse Rate 84 81 85 Respiratory 18 18 16 Rate Blood Pressure 152/64 147/69 (mmHg) O2 Sat by Pulse 98 99 98 Oximetry Appearance: NAD; elderly and confused Ears/Nose/Mouth/Throat: Clear Oropharnyx Neck: NL Appearance and Movements; NL JVP Respiratory: Symmetrical Chest Expansion and Respiratory Effort Cardiovascular: NL Sounds; No Murmurs; No JVD Abdominal: NL Sounds; No Tenderness; No Distention Lymphatic: No Cervical Adenopathy Extremities: No Edema Skin: No Rash or Ulcers Neurological: NL Sensation Lines/Tubes/Other Access: Clean, Dry and Intact Peripheral IV Nutrition: Taking PO's Result Diagrams: 08/04/16 06:11 08/04/16 06:12 Additional Lab and Data: . Microbiology and Other Data: Microbiology 08/02/16 23:40 Nasal Screen MRSA (PCR)(JERROD) - Final Nasal Mrsa Negative Assess/Plan/Problems-Billing . Assessment: 86 yo female with diarrhea and dehydration. decreased stool output casts dount on what was originally thought to be C. Diff Aggressive IVF/electrolyte repletion; but empiric Flagyl discontinued. - Patient Problems (1) Colitis Current Visit: Yes Status: Acute Priority: High Code(s): K52.9 - NONINFECTIVE GASTROENTERITIS AND COLITIS, UNSPECIFIED Comment: - Flagyl started; then dc'd when stool nearly normal. - No C. Diff sent 2/2 inconsistent consistency (lab won't run test on solid stool) - multiple electrolyte derangements -- replete and recheck. - IVF repletion; still hypokalemic. (2) Dementia Current Visit: No Status: Acute SNOMED Code(s): 98228314 Comment: - Continue Haldol PRN for agitation. - Continue Aricept. (3) Loose stools Current Visit: No Status: Acute Code(s): R19.5 - OTHER FECAL ABNORMALITIES SNOMED Code(s): 909049724 Comment: - Secondary to colitis? resolving (4) Physical deconditioning Current Visit: No Status: Acute Code(s): R53.81 - OTHER MALAISE SNOMED Code(s): 40242314658834 Comment: - patient actually fell trying to get up; still deconditioned. - Lives at [facility]; will return there at [place]
[2016-08-04] MEDS: Donepezil TAB* 5 MG PO SCH (20:14)
[2016-08-04] MEDS: Famotidine TAB* 20 MG PO SCH (20:14)
[2016-08-05 05:50] LABS: Hematocrit 31 % (35-47); Hemoglobin 10.6 g/dl (12.0-16.0); Mean Corpuscular HGB Conc 34 g/dl (31-36); Mean Corpuscular Hemoglobin 27 pg (27-31); Mean Corpuscular Volume 79 fL (80-97); Mean Platelet Volume 9 um3 (7.4-10.4); Red Blood Count 3.96 10^6/ul (4.0-5.4); Red Cell Distribution Width 14 % (10.5-15); White Blood Count 6.6 10^3/ul (3.5-10.8)
[2016-08-05 06:04] LABS: BUN/Creatinine Ratio 6.5 (8-20); Calcium 7.9 mg/dL (8.6-10.3); EGFR African American 91.6 (>60); EGFR Non-African American 71.2 (>60); Magnesium 1.7 mg/dL (1.9-2.7); Phosphorus 1.8 mg/dL (2.5-5.0); Potassium 3.4 mmol/L (3.5-5.0)
[2016-08-05] MEDS: Heparin VIAL(*) 5000 UNITS/ML VIAL (FIVE THOUSAND) SUBCUT SCH (06:10)
[2016-08-05 08:16] VITALS: BP 147/70
[2016-08-05] MEDS: Potassium Chloride LIQUID* 20 MEQ PACKET PO SCH (08:25)
[2016-08-05] MEDS: Clotrimazole 1% CREAM* 45 GM TOPICAL SCH (08:26)
[2016-08-05] MEDS: Losartan TAB* 25 MG PO SCH (08:26)
[2016-08-05] MEDS: Fluconazole 100 MG TAB* TAB PO SCH (08:26)
[2016-08-05] MEDS: Sertraline* 50 MG TAB PO SCH (08:26)
[2016-08-05] MEDS: amLODIPine TAB* 5 MG PO SCH (08:26)
[2016-08-05] MEDS: Mometasone/Formoter 200/5 MDI INH SCH (08:57)
[2016-08-05] MEDS ORDERED: Magnesium Sulf 4 GM/100 ML IV* 4,000 MG/100 ML BAG IVPB ONE (09:38)
[2016-08-05] MEDS ORDERED: Potassium Phosphate IV* 15 MMOLE in NS 0.9% 250 ML* 250 ML IVPB ONE (09:38)
--- NOTE | 2016-08-05 13:46 | DS ---
DATE OF ADMISSION: 08/02/2016. DATE OF DISCHARGE: 08/05/2016. STATUS DURING HOSPITALIZATION: Inpatient. PRIMARY CARE PROVIDER: Dr. Jody Loepz, [facility]. PRINCIPAL DISCHARGE DIAGNOSES: 1. Nausea, vomiting and diarrhea secondary to colitis - resolved - clinical presentation thought now inconsistent with clostridium difficile. 2. Cutaneous candidiasis in groin area - started Fluconazole. SECONDARY DIAGNOSES: 1. Alzheimer's type dementia. 2. Hyperlipidemia. 3. Asthma. 4. Anxiety. 5. Osteoarthritis. 6. Chronic anemia. 7. GERD. 8. Hypertension. DISCHARGE MEDICATIONS REGIMEN: New: 1. Fluconazole 100 mg by mouth daily times 7 days then stop. Continue: 1. Acetaminophen 650 mg by mouth twice daily as needed for pain/fever. 2. Albuterol inhaler two puffs every 6 hours as needed for shortness of breath/ wheezing. 3. Atorvastatin 10 mg by mouth at bedtime. 4. Calcium with vitamin D one tablet by mouth once daily. 5. Clotrimazole 1% cream to area of rash in groin daily. 6. Donepezil 5 mg by mouth at bedtime. 7. Lubriderm topically at bedtime. 8. Famotidine 40 mg by mouth q.p.m. 9. Advair HFA 230 mcg two puffs inhaled twice daily. 10. Losartan 50 mg by mouth daily. 11. General multivitamins with minerals one tablet by mouth once daily. 12. Pantoprazole 40 mg by mouth daily. 13. Sertraline 50 mg by mouth daily. 14. Amlodipine 5 mg by mouth daily. HISTORY OF PRESENT ILLNESS AND HOSPITAL COURSE: Please see the history and physical by Dr. Washington Nj on 08/02/2016. In brief, Ms. Wilson is a demented 86- year-old woman, resident of [place], who reports several days of diarrhea. The patient is a vague historian and records were obtained from the facilities and by the emergency room doctor. The patient vomited dark material today by report. Staff at her facility felt she was lethargic and could not easily walk to dinner. She was eating toast mostly, drinking liquids without problems, without report of fever or blood in stool or bloody emesis. There was no abdominal pain. The patient does have healthcare associations and she was discharged back in April after weakness and dehydrations and spent some days in bed and required a rehab stay after the hospitalization. There was initial concern for clostridium difficile and stool tests were ordered for this. She was not originally started on Flagyl. She later did get started on Flagyl empirically, but the stool never got sent because it was formed for the most part. Likewise, she did not have much nausea and vomiting and she has been eating acceptably. The patient did have several electrolyte derangements, including hypomagnesium, hypokalemia, and hypophosphatemia, all of which were repleted aggressively during the hospitalizations. I am requesting repeat labs on 08/08/2016 () with results being sent back to Dr. Lopez. The patient did have several liters of intravenous crystalloids and at present she seems back to her baseline. The patient continues to be a do not resuscitate and this is being continued at discharge. The patient is going to be discharged to [place] today, 08/05/2016, in stable condition. If she has any worsening symptomology, she can return to the hospital at any time. Total time taken to discharge Ms. Wilson was 45 minutes, greater than half that time spent going over the discharge instructions [id number] with the patient. CC: Dr. Lopez* [id number]/[facility] #: [id number] [place]
[2016-08-06] MEDS ORDERED: Potassium Chloride LIQUID* 20 MEQ PACKET PO ONE (09:39)
== END 2016-08-05 15:54 | DRG 392 ==
LOC: ED 17:06 → MEDTELE 21:30 → OBSVTOIN 08-03 16:28
PROVIDERS: ADMIT Internal Medicine; ATTEND Internal Medicine
DX: K52.9 Noninfective gastroenteritis and colitis, unspecified (principal); G30.9 Alzheimer's disease, unspecified; D53.9 Nutritional anemia, unspecified; E83.42 Hypomagnesemia; E83.39 Other disorders of phosphorus metabolism; B37.2 Candidiasis of skin and nail; F02.80 Dementia in other diseases classified elsewhere, unspecified severity, without behavioral disturbance, psychotic disturbance, mood disturbance, and anxiety; I10 Essential (primary) hypertension; E78.5 Hyperlipidemia, unspecified; J45.909 Unspecified asthma, uncomplicated; F41.9 Anxiety disorder, unspecified; M19.90 Unspecified osteoarthritis, unspecified site; K21.9 Gastro-esophageal reflux disease without esophagitis; E87.6 Hypokalemia; Z66 Do not resuscitate; Z79.1 Long term (current) use of non-steroidal anti-inflammatories (NSAID); Z79.899 Other long term (current) drug therapy
CPT/HCPCS: 36415; 71010; 74177; 80048; 80053; 81003; 81015; 82150; 82550; 83605; 83690; 83735; 83880; 84100; 84484; 85025; 86140; 86141; 87040; 87077; 87086; 87184; 87186; 87641; 93005; 94640; 94760; A9270-GY; J1644; J2405; J3480; Q9967

== ENCOUNTER 2016-11-07 21:11 | Emergency (ER) | payer MEDICARE, OTHER ==
--- NOTE | 2016-11-07 21:46 | ED ---
Elio Barrera Thomas, scribed for Cheko Colvin MD on 11/07/16 at 2125 . Lower Extremity - HPI Summary HPI Summary: The pt is an 86 y/o F BIB EMS c/o R-sided flank pain s/p a mechanical fall that occurred today at 21:00. She denies LOC and any pain when she breathes. She uses a walker to get around. The pain is aggravated and alleviated by nothing. The patient has treated the pain with nothing [employer]. Pt denies any other complaints at this time. PMHx: HTN, anxiety. PSHx: cataracts. SHx: former smoker , no alcohol use, no illicit drug use. - History of Current Complaint Chief Complaint: EDGeneral Stated Complaint: FALL Time Seen by Provider: 11/07/16 21:16 Hx Obtained From: Patient, EMS Hx Last Menstrual Period: postmenopausal Mechanism Of Injury: Fall From A Standing Position - mechanical Onset of Pain: Immediate Timing: Constant Associated Signs And Symptoms: Positive: Other - NEG: LOC, pain when breathing. Negative: Syncope Aggravating Factor(s): Nothing Alleviating Factor(s): Nothing - Allergies/Home Medications Allergies/Adverse Reactions: Allergies Allergy/AdvReac Type Severity Reaction Status Date / Time No Known Allergies Allergy Verified 08/02/16 17:16 PMH/Surg Hx/FS Hx/Imm Hx Previously Healthy: No Endocrine/Hematology History: Reports: Hx Thyroid Disease Denies: Hx Blood Disorders Cardiovascular History: Reports: Hx Hypertension Sensory History: Reports: Hx Contacts or Glasses Denies: Hx Hearing Aid Opthamlomology History: Reports: Hx Contacts or Glasses Psychiatric History: Reports: Hx Anxiety - Surgical History Surgery Procedure, Year, and Place: cataracts Hx Anesthesia Reactions: - UNSURE Infectious Disease History: Reports: Hx Shingles - treated Denies: Traveled Outside the [place] in Last 30 Days - Family History Known Family History: Positive: Hypertension Negative: Cardiac Disease, Diabetes - Social History Alcohol Use: None Alcohol Amount: 1 x week Hx Substance Use: No Substance Use Type: Reports: None Hx Tobacco Use: No Smoking Status (MU): Former Smoker Review of Systems Negative: Fever Negative: Other - NEG: pain when breathing Positive: Other - POS: R-sided flank pain s/p fall Neurological: Other - NEG: syncope, LOC Negative: Syncope All Other Systems Reviewed And Are Negative: Yes Physical Exam Triage Information Reviewed: Yes Vital Signs On Initial Exam: Temp=97.7, HR=86, RR=18, SaO2=98, BP 179/112. Vital Signs Reviewed: Yes Appearance: Positive: No Pain Distress, Thin Skin: Positive: Warm Head/Face: Positive: Normal Head/Face Inspection ENT: Positive: Hearing grossly normal Respiratory/Lung Sounds: Positive: Clear to Auscultation, Breath Sounds Present , Other - mild rt lat cw tenderness, mild ecchymosis Cardiovascular: Positive: RRR Abdomen Description: Positive: Nontender, Soft Bowel Sounds: Positive: Present Musculoskeletal: Positive: Strength/ROM Intact Neurological: Positive: Alert, Oriented to Person Place, Time Psychiatric: Positive: Affect/Mood Appropriate Diagnostics - Vital Signs Temp=97.7, HR=86, RR=18, SaO2=98, BP 179/112. - Laboratory Lab Statement: Any lab studies that have been ordered have been reviewed, and results considered in the medical decision making process. - Radiology CXR with ribs Xray Interpretation: No Acute Changes - No Fx Radiology Interpretation Completed By: ED Physician Re-Evaluation - Re-Evaluation First Eval Change: Improved - results d/w pt Lower Extremity Course/Dx - Course Assessment/Plan: The pt is an 86 y/o F BIB EMS c/o R-sided flank pain s/p a mechanical fall that occurred today at 21:00. She denies LOC and any pain when she breathes. She uses a walker to get around. The pain is aggravated and alleviated by nothing. The patient has treated the pain with nothing [employer]. Pt denies any other complaints at this time. PMHx: HTN, anxiety. PSHx: cataracts. SHx: former smoker, no alcohol use, no illicit drug use. UA is negative. CXR with ribs reveals no Fx. Patient is diagnosed with flank contusion. Patient will be discharged home with follow up by PCP. Patient is agreeable to this plan. - Diagnoses Provider Diagnoses: Contusion, flank Discharge - Discharge Plan Condition: Stable Disposition: HOME Patient Education Materials: Contusion in Adults (ED) Referrals: Jody Lopez MD [Primary Care Provider] - 3 Days The documentation as recorded by the Elio saez Thomas accurately reflects the service I personally performed and the decisions made by , Cheko Colvin MD.
[2016-11-08 01:32] LABS: Urine Bilirubin Negative (Negative); Urine Glucose Negative (Negative); Urine Nitrite Negative (Negative)
[2016-11-08 02:04] VITALS: BP 186/77
--- NOTE | 2016-11-08 07:41 | RAD ---
INDICATION: Right flank pain after a fall COMPARISON: Chest x-ray dated August 02, 2016 TECHNIQUE: 4 views of the right ribs were obtained. FINDINGS: No fracture or significant focal osseous abnormality is seen. No pneumothorax is apparent. Limited views demonstrate grossly clear lungs. IMPRESSION: No radiographically apparent displaced rib fracture or pneumothorax. If the patient's symptoms persist, follow-up imaging is recommended.
== END 2016-11-08 02:00 | disposition home or self-care (01) ==
LOC: ED 21:11
DX: S30.1XXA Contusion of abdominal wall, initial encounter (principal); R10.84 Generalized abdominal pain; Z87.891 Personal history of nicotine dependence; W19.XXXA Unspecified fall, initial encounter; Y93.9 Activity, unspecified; Y92.9 Unspecified place or not applicable
CPT/HCPCS: 81003; 99284

== ENCOUNTER 2016-11-16 14:07 | Inpatient (IN) | payer MEDICARE, OTHER ==
[2016-11-16] MEDS ORDERED: NS 0.9% 1000 ML* 1,000 ML IV ONE (14:29)
[2016-11-16 15:02] LABS: Hematocrit 33 % (35-47); Hemoglobin 11.1 g/dl (12.0-16.0); Mean Corpuscular HGB Conc 34 g/dl (31-36); Mean Corpuscular Hemoglobin 27 pg (27-31); Mean Corpuscular Volume 78 fL (80-97); Mean Platelet Volume 9 um3 (7.4-10.4); Red Blood Count 4.17 10^6/ul (4.0-5.4); Red Cell Distribution Width 15 % (10.5-15); White Blood Count 10.3 10^3/ul (3.5-10.8)
--- NOTE | 2016-11-16 15:02 | RAD ---
INDICATION: Aphasia, facial droop resolves, TIA. COMPARISON: There are no prior studies available for comparison. TECHNIQUE: Contiguous axial sections of the brain were obtained from the skull base to the vertex without contrast. FINDINGS: The ventricles, cisterns and sulci are enlarged consistent with diffuse atrophy. There are multiple focal areas of decreased density in the subcortical and periventricular white matter suggestive of moderate to severe chronic small vessel ischemic changes. No other focal abnormality or mass effect is seen. There is no evidence for hemorrhage. There is dolichoectasia of the vertebral and basilar arteries. No significant focal osseous abnormality is seen. The visualized portion of the paranasal sinuses and mastoid air cells appear clear. IMPRESSION: 1. NO EVIDENCE FOR GROSS ACUTE INFARCT, MASS EFFECT OR HEMORRHAGE. 2. ATROPHY AND FINDINGS CONSISTENT WITH MODERATE TO SEVERE CHRONIC SMALL VESSEL ISCHEMIC CHANGES.
--- NOTE | 2016-11-16 15:08 | RAD ---
INDICATION: Pneumonia, CHF. COMPARISON: Comparison is made with a prior chest x-ray study from August 02, 2016. TECHNIQUE: A single AP view of the chest was obtained. FINDINGS: The heart appears mildly enlarged and unchanged from the prior exam. The lungs are underinflated. There is mild prominence of the interstitial markings. There are small infiltrates at both lung bases. IMPRESSION: SMALL BIBASILAR INFILTRATES.
[2016-11-16 15:15] LABS: Albumin 3.9 g/dL (3.2-5.2); BUN/Creatinine Ratio 18.9 (8-20); Calcium 9.2 mg/dL (8.6-10.3); EGFR African American 63.4 (>60); EGFR Non-African American 49.3 (>60); Globulin 3.9 g/dL (2-4); HDL Cholesterol 55.8 mg/dL; Potassium 3.2 mmol/L (3.5-5.0); Total Bilirubin 0.4 mg/dL (0.2-1.0); Total Protein 7.8 g/dL (6.4-8.9); Troponin I 0.02 ng/mL (<0.04)
[2016-11-16 17:06] LABS: Urine Bacteria 1+ (Absent); Urine Bilirubin Negative (Negative); Urine Glucose Negative (Negative); Urine Nitrite Negative (Negative)
[2016-11-16] MEDS ORDERED: Albuterol HFA INHALER* 8 gm MDI INH PRN (17:18)
[2016-11-16] MEDS ORDERED: ACETAMINOPHEN 650 MG PO PRN (17:18)
[2016-11-16] MEDS ORDERED: Aspirin TAB* 325 MG PO ONE (17:24)
[2016-11-16] MEDS ORDERED: Iodixanol* (CONTRAST) 320 MG/ML 100 ML SDV IV ONE (17:26)
[2016-11-16] MEDS ORDERED: NS 0.9% 1000 ML* 1,000 ML IV SCH (17:30)
--- NOTE | 2016-11-16 17:49 | ED ---
Ramila Barrera Edward, scribed for Ted Hurst MD on 11/16/16 at 1421 . Neurological HPI - HPI Summary HPI Summary: 86 y/o y/o female BIBA c/o facial drooping and aphasia starting around 30 minutes ago. Pt also reports falling last week with bruise on the L flank area. Pt lives at [facility]. The symptoms have resolved in the ED. Per EMS, the patient was able to speak with them on their arrival but had some trouble recalling things. No PMHx CVA. Pt also has recently had some mild dementia. Associated sx: mild back pain. Denies trouble swallowing, FREGOSO, CP and SOB. Pt denies use of blood thinners. Occasional EtOH use. Denies PMHx cardiac disease. Positive FHx heart disease. - History of Current Complaint Chief Complaint: EDNeurologicalDeficit Stated Complaint: POSSIBLE TIA Hx Obtained From: Patient Hx Last Menstrual Period: postmenopausal Onset/Duration: Started minutes ago - 30, Resolved Neurological Deficit Location: Facial Character: Impaired Speech, Other: - Facial droop, mild back pain, ecchymosis @ L flank. Denies FREGOSO, CP and SOB - Additional Pertinent History Primary Care Physician: [id number] - Allergy/Home Medications Allergies/Adverse Reactions: Allergies Allergy/AdvReac Type Severity Reaction Status Date / Time No Known Allergies Allergy Verified 08/02/16 17:16 PMH/Surg Hx/FS Hx/Imm Hx Previously Healthy: No Endocrine/Hematology History: Reports: Hx Thyroid Disease Denies: Hx Blood Disorders Cardiovascular History: Reports: Hx Hypertension Sensory History: Reports: Hx Contacts or Glasses Denies: Hx Hearing Aid Opthamlomology History: Reports: Hx Contacts or Glasses Psychiatric History: Reports: Hx Anxiety - Surgical History Surgery Procedure, Year, and Place: cataracts Hx Anesthesia Reactions: - UNSURE Infectious Disease History: Reports: Hx Shingles - treated Denies: Traveled Outside the [place] in Last 30 Days - Family History Known Family History: Positive: Hypertension Negative: Cardiac Disease, Diabetes - Social History Occupation: Retired Lives: Assisted Living Alcohol Use: None Alcohol Amount: 1 x week Hx Substance Use: No Substance Use Type: Reports: None Hx Tobacco Use: No Smoking Status (MU): Former Smoker Review of Systems Constitutional: Negative Eyes: Negative ENT: Negative Cardiovascular: Negative Respiratory: Negative Gastrointestinal: Negative Genitourinary: Negative Positive: Myalgia - Mild back pain Positive: Bruising - L flank Neurological: Other - aphasia per EMS, facial droop Negative: Headache Psychological: Normal All Other Systems Reviewed And Are Negative: Yes Physical Exam - Summary Physical Exam Summary: The patient is well-nourished in no acute distress and in no acute pain. The skin is warm and dry and skin color reflects adequate perfusion. HEENT: The head is normocephalic and atraumatic. The pupils are equal and reactive. The extraocular muscles are intact. The conjunctivae are clear and without drainage. Nares are patent and without drainage. Mouth reveals moist mucous membranes and the throat is without erythema and exudate. The external ears are intact. The ear canals are patent and without drainage. The tympanic membranes are intact. Neck is supple with full range of motion and non-tender. There are no carotid bruits. There is no neck vein distension. Respiratory: Chest is non-tender. Lungs are clear to auscultation and breath sounds are symmetrical and equal. Cardiovascular: The patient is tachycardic. There is no murmur or rub auscultated. There is no peripheral edema and pulses are symmetrical and equal. Abdomen: The abdomen is soft and non-tender. There are normal bowel sounds heard in all four quadrants and there is no organomegaly palpated. Musculoskeletal: There is no back pain noted. Extremities are non-tender with full range of motion. There is good capillary refill. There is no peripheral edema or calf tenderness elicited. The hips are nontender. Neurological: Patient is alert and oriented to person, place and time. The patient has symmetrical motor strength in all four extremities. Cranial nerves II-XII are grossly intact. Deep tendon reflexes are symmetrical and equal in all four extremities. There is no visual field loss. There is no aphasia. Finger -to-nose is good. The patient did not understand the instructions for heel-to- short. Negative Babinski's sign. There is no pronator drift of the extremities. The patient is not confused. Psychiatric: The patient has an appropriate affect and does not exhibit any anxiety or depression. Triage Information Reviewed: Yes Vital Signs On Initial Exam: Initial Vitals Temp Pulse Resp BP Pulse Ox 98.7 F 110 20 157/70 95 11/16/16 14:12 11/16/16 14:12 11/16/16 14:12 11/16/16 14:12 11/16/16 14:12 Vital Signs Reviewed: Yes Diagnostics - Vital Signs Vital Signs Temp Pulse Resp BP Pulse Ox 11/16/16 16:00 103 19 96 11/16/16 15:00 97 16 97 11/16/16 14:30 99 14 143/70 96 11/16/16 14:17 107 21 98 11/16/16 14:15 133/69 11/16/16 14:12 98.7 F 110 20 157/70 95 - Laboratory Lab Results: Lab Results 11/16/16 11/16/16 11/16/16 Range/Units 14:15 14:15 14:15 WBC 10.3 (3.5-10.8) 10^3/ul RBC 4.17 (4.0-5.4) 10^6/ul Hgb 11.1 L (12.0-16.0) g/dl Hct 33 L (35-47) % MCV 78 L (80-97) fL MCH 27 (27-31) pg MCHC 34 (31-36) g/dl RDW 15 (10.5-15) % Plt Count 285 (150-450) 10^3/ul MPV 9 (7.4-10.4) um3 Neut % (Auto) 72.9 (38-83) % Lymph % (Auto) 14.2 L (25-47) % Bailey % (Auto) 10.9 H (1-9) % Eos % (Auto) 1.2 (0-6) % Baso % (Auto) 0.8 (0-2) % Absolute Neuts (auto) 7.5 (1.5-7.7) 10^3/ul Absolute Lymphs (auto) 1.5 (1.0-4.8) 10^3/ul Absolute Monos (auto) 1.1 H (0-0.8) 10^3/ul Absolute Eos (auto) 0.1 (0-0.6) 10^3/ul Absolute Basos (auto) 0.1 (0-0.2) 10^3/ul Absolute Nucleated RBC 0 10^3/ul Nucleated RBC % 0 INR (Anticoag Therapy) 0.89 (0.89-1.11) Sodium 124 L (133-145) mmol/L Potassium 3.2 L (3.5-5.0) mmol/L Chloride 88 L (101-111) mmol/L Carbon Dioxide 26 (22-32) mmol/L Anion Gap 10 (2-11) mmol/L BUN 20 (6-24) mg/dL Creatinine 1.06 H (0.51-0.95) mg/dL Est GFR ( Amer) 63.4 (>60) Est GFR (Non-Af Amer) 49.3 (>60) BUN/Creatinine Ratio 18.9 (8-20) Glucose 110 H (70-100) mg/dL Lactic Acid (0.5-2.0) mmol/L Calcium 9.2 (8.6-10.3) mg/dL Total Bilirubin 0.40 (0.2-1.0) mg/dL AST 22 (13-39) U/L ALT 13 (7-52) U/L Alkaline Phosphatase 90 (34-104) U/L Troponin I 0.02 (<0.04) ng/mL Total Protein 7.8 (6.4-8.9) g/dL Albumin 3.9 (3.2-5.2) g/dL Globulin 3.9 (2-4) g/dL Albumin/Globulin Ratio 1.0 (1-3) Triglycerides 115 mg/dL Cholesterol 117 mg/dL LDL Cholesterol 38 mg/dL HDL Cholesterol 55.8 mg/dL Urine Color Urine Appearance Urine pH (5-9) Ur Specific Mills (1.010-1.030) Urine Protein (Negative) Urine Ketones (Negative) Urine Blood (Negative) Urine Nitrate (Negative) Urine Bilirubin (Negative) Urine Urobilinogen (Negative) Ur Leukocyte Esterase (Negative) Urine WBC (Auto) (Absent) Urine RBC (Auto) (Absent) Ur Squamous Epith Cells (Absent) Urine Bacteria (Absent) Urine Glucose (Negative) Urine Ascorbic Acid (Negative) 11/16/16 11/16/16 Range/Units 14:15 16:48 WBC (3.5-10.8) 10^3/ul RBC (4.0-5.4) 10^6/ul Hgb (12.0-16.0) g/dl Hct (35-47) % MCV (80-97) fL MCH (27-31) pg MCHC (31-36) g/dl RDW (10.5-15) % Plt Count (150-450) 10^3/ul MPV (7.4-10.4) um3 Neut % (Auto) (38-83) % Lymph % (Auto) (25-47) % Bailey % (Auto) (1-9) % Eos % (Auto) (0-6) % Baso % (Auto) (0-2) % Absolute Neuts (auto) (1.5-7.7) 10^3/ul Absolute Lymphs (auto) (1.0-4.8) 10^3/ul Absolute Monos (auto) (0-0.8) 10^3/ul Absolute Eos (auto) (0-0.6) 10^3/ul Absolute Basos (auto) (0-0.2) 10^3/ul Absolute Nucleated RBC 10^3/ul Nucleated RBC % INR (Anticoag Therapy) (0.89-1.11) Sodium (133-145) mmol/L Potassium (3.5-5.0) mmol/L Chloride (101-111) mmol/L Carbon Dioxide (22-32) mmol/L Anion Gap (2-11) mmol/L BUN (6-24) mg/dL Creatinine (0.51-0.95) mg/dL Est GFR ( Amer) (>60) Est GFR (Non-Af Amer) (>60) BUN/Creatinine Ratio (8-20) Glucose (70-100) mg/dL Lactic Acid 2.1 H* (0.5-2.0) mmol/L Calcium (8.6-10.3) mg/dL Total Bilirubin (0.2-1.0) mg/dL AST (13-39) U/L ALT (7-52) U/L Alkaline Phosphatase (34-104) U/L Troponin I (<0.04) ng/mL Total Protein (6.4-8.9) g/dL Albumin (3.2-5.2) g/dL Globulin (2-4) g/dL Albumin/Globulin Ratio (1-3) Triglycerides mg/dL Cholesterol mg/dL LDL Cholesterol mg/dL HDL Cholesterol mg/dL Urine Color Yellow Urine Appearance Clear Urine pH 6.0 (5-9) Ur Specific Mills 1.005 L (1.010-1.030) Urine Protein Negative (Negative) Urine Ketones Negative (Negative) Urine Blood Negative (Negative) Urine Nitrate Negative (Negative) Urine Bilirubin Negative (Negative) Urine Urobilinogen Negative (Negative) Ur Leukocyte Esterase 1+ H (Negative) Urine WBC (Auto) Trace(0-5/hpf) (Absent) Urine RBC (Auto) Absent (Absent) Ur Squamous Epith Cells Present H (Absent) Urine Bacteria 1+ H (Absent) Urine Glucose Negative (Negative) Urine Ascorbic Acid * H (Negative) Result Diagrams: 11/16/16 14:15 11/16/16 14:15 Lab Statement: Any lab studies that have been ordered have been reviewed, and results considered in the medical decision making process. - Radiology CXR Xray Interpretation: Positive (See Comments) - SMALL BIBASILAR INFILTRATES. ED PHYSICIAN AGREEABLE Radiology Interpretation Completed By: Radiologist - CT BRAIN CT CT Interpretation: No Acute Changes - 1. NO EVIDENCE FOR GROSS ACUTE INFARCT, MASS EFFECT OR HEMORRHAGE. 2. ATROPHY AND FINDINGS CONSISTENT WITH MODERATE TO SEVERE CHRONIC SMALL VESSEL ISCHEMIC CHANGES. ED PHYSICIAN AGREEABLE CT Interpretation Completed By: Radiologist - EKG 1 EKG Interpretation: 14:15 sinus tachycardia @ [address] BPM[address] Non-specific ST changes. NIH Scale - NIH Scale Level of Consciousness: Alert/Keenly Responsive Ask Patient the Month and His/Her Age: One Correct/Not Aphasic Ask Pt to Open/Close Eyes and Ux Manager/Release Non-Paretic Hand: Both Correctly Best Gaze (Only Horizontal Eye Movement): Normal Visual Field Testing: No Visual Loss Facial Paresis-Pt to Smile & Close Eyes or Grimace Symmetry: Normal/Symmetrical Motor Function - Right Arm: No Drift-Holds 10 Seconds Motor Function - Left Arm: No Drift-Holds 10 Seconds Motor Function - Right Leg: No Drift-Holds 10 Seconds Motor Function - Left Leg: No Drift-Holds 10 Seconds Limb Ataxia-Must be out of Proportion to Weakness Present: Absent Sensory (Use Pinprick to Test Arms/Legs/Trunk/Face): Normal Best Language (Describe Picture, Name Items): No Aphasia Dysarthria (Read Several Words): Normal Extinction and Inattention: No Abnormality Total Score: 1 Course/Dx - Course Assessment/Plan: 86 y/o female BIBA c/o facial drooping and aphasia starting around 30 minutes ago. Pt also reports falling last week with bruise on the L flank area. Pt lives at [facility]. The symptoms have resolved in the ED. Per EMS, the patient was able to speak with them on their arrival but had some trouble recalling things. No PMHx CVA. Pt also has recently had some mild dementia. Associated sx: mild back pain. Denies trouble swallowing, FREGOSO, CP and SOB. Pt denies use of blood thinners. Occasional EtOH use. Denies PMHx cardiac disease. Positive FHx heart disease. EKG 14:15 sinus tachycardia @ [address] BPM. Non-specific ST changes. BRAIN CT SHOWS 1. NO EVIDENCE FOR GROSS ACUTE INFARCT, MASS EFFECT OR HEMORRHAGE. 2. ATROPHY AND FINDINGS CONSISTENT WITH MODERATE TO SEVERE CHRONIC SMALL VESSEL ISCHEMIC CHANGES. CXR SHOWS SMALL BIBASILAR INFILTRATES. Spoke with Osbaldo Brown JEWELRY TECHNICIAN @ 16:15 who agreed [place] [facility] [place] - Differential Dx Differential Diagnoses Neuro: Positive: Cerebrovascular Accident, Coronary Artery Disease, Hypoglycemia, Hypovolemia, Transient Ischemic Attack, Other - uti, pneumonia, dementia - Diagnoses Provider Diagnoses: TIA (transient ischemic attack) - Physician Notifications Discussed Care Of Patient With: Osbaldo Brown Time Discussed With Above Provider: 16:15 Instructed by Provider To: Admit As Inpatient Discharge - Discharge Plan Condition: Stable Disposition: ADMITTED TO [facility] Referrals: Jody Lopez MD [Primary Care Provider] - The documentation as recorded by the Ramila saez Edward accurately reflects the service I personally performed and the decisions made by , Ted Hurst MD.
[2016-11-16] MEDS: Potassium Chloride LIQUID* 20 MEQ PACKET PO SCH ×2 (18:09→23:05)
--- NOTE | 2016-11-16 18:21 | RAD ---
INDICATION: TIA. COMPARISON: Comparison is made with a prior CT of the brain from November 16, 2016. TECHNIQUE: A CT angiogram of the head and neck was performed following intravenous injection of 80 ml of Visipaque 320 nonionic contrast. Contiguous axial sections were obtained from the thoracic inlet through the skull vertex. Images were reconstructed in the coronal and sagittal planes and in a 3-D volume rendered format. The distal cervical internal carotid artery diameter is used as the denominator for stenosis measurement. Examination is limited due to suboptimal opacification of the arteries and streak artifact. FINDINGS: RIGHT CAROTID: There is moderate calcific plaque present within the carotid bulb and proximal internal carotid artery giving rise to a moderate grade stenosis of approximately 60%. LEFT CAROTID: There is moderate calcific plaque present within the carotid bulb and proximal internal carotid artery giving rise to a prior study of 50% stenosis. VERTEBRALS: There is a dominant right vertebral artery. The left vertebral artery is very small in caliber throughout. CTA BRAIN: The internal carotid, anterior and middle cerebral arteries appear patent without evidence for high-grade stenosis or occlusion. There is moderate calcific plaque present bilaterally within the cavernous portion of the internal carotid arteries. The vertebral, basilar and posterior cerebral arteries appear patent without evidence for high-grade stenosis or occlusion. No gross focal perfusion abnormalities are seen. No aneurysm or vascular malformation is seen. NECK: No significant enlarged lymph nodes are seen within the neck. The thyroid, parotid and submandibular glands appear to be within normal limits. Images through the upper portion of the lungs demonstrate a right pleural effusion. The sinuses are clear. IMPRESSION: 1. LIMITED STUDY. 2. 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 3. NO EVIDENCE FOR LARGE VESSEL INTRACRANIAL THROMBUS. 4. RIGHT PLEURAL EFFUSION. CPT II Codes: 3100F
[2016-11-16] MEDS: Mometasone/Formoter 200/5 MDI INH SCH (20:38)
[2016-11-16] MEDS ORDERED: Famotidine TAB* 20 MG PO SCH (21:00)
[2016-11-16] MEDS: Donepezil TAB* 5 MG PO SCH (22:35)
--- NOTE | 2016-11-17 03:48 | HP ---
CC: Dr. Lopez HISTORY AND PHYSICAL: DATE OF ADMISSION: 12/16/16 TIME OF EVALUATION: 4:30 p.m. PRIMARY CARE PHYSICIAN: Dr. Lopez CHIEF COMPLAINT: "I don't know why I am here." HISTORY OF PRESENT ILLNESS: Ms. Wilson in an 86-year-old lady with a past medical history of hyperte nsion, GERD, chronic anemia, osteoarthritis, anxiety, Alzheimer's type dementia, hyperlipidemia, ast hma, admission in July secondary to colitis, who was sent to the emergency room due to facial droop a nd aphasia. The patient cannot provide any history and [facility] and [facility] notes are limited. I did call [facility] to try and obtain more information but I just got a voice mail at this time. From the r ecords, it appears the patient was in the bathroom and was found with facial droop (unspecified side ) and aphasia 30 minutes prior to arrival to the emergency room. As per nursing report by at that t nikunj she arrived to the hospital, her symptoms had resolved. The patient is unable to provide any further information. PAST MEDICAL HISTORY: 1. Hypertension. 2. GERD. 3. Chronic anemia. 4. Osteoarthritis. 5. Anxiety. 6. Alzheimer's type dementia. 7. Hyperlipidemia. 8. Asthma. 9. Admission for colitis in July 2016. MEDICATION LIST: 1. Acetaminophen 650 mg p.o. q. 4 hours p.r.n. pain. 2. Albuterol HFA 2 puffs inhaled q. 6 hours p.r.n. shortness of breath. 3. Amlodipine 5 mg p.o. daily. 4. Atorvastatin 10 mg p.o. daily. 5. Calcium plus vitamin D 600/400 one tablet p.o. daily. 6. Clotrimazole 1% cream topical daily. 7. Donepezil 5 mg p.o. at bedtime. 8. Lubriderm topical at bedtime as needed for dry skin. 9. Famotidine 5 mg p.o. at bedtime. 10. Advair 230/21 two puffs inhaled b.i.d. 11. Losartan 50 mg p.o. daily. 12. Multivitamin 1 tablet p.o. daily. 13. Eye vitamin 2 tablets p.o. b.i.d. 14. Pantoprazole 40 mg p.o. daily. 15. Sertraline 50 mg p.o. daily. ALLERGIES: No known drug allergies. FAMILY HISTORY: The patient cannot provide any information due to her dementia. 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 Surrogate decision carleen er is her son Mykel Wilson who lives in [place], phone# is . REVIEW OF SYSTEMS: I am unable to obtain from the patient due to her dementia. PHYSICAL EXAMINATION GENERAL: The patient in a pleasantly confused elderly lady lying in the ER stretcher in no acute di stress. VITAL SIGNS: Temperature 98.7, heart rate is 103, respiratory rate is 19, oxygen saturation 96% on room air, blood pressure is 143/70. HEENT: Pupils are equal. Dry mucous membranes. CHEST: Breath sounds present bilaterally with no added sounds. CVS: Normal S1 and S2. Regular rate and rhythm. ABDOMEN: Soft, nontender, nondistended. Bowel sounds present. EXTREMITIES: No edema. NEUROLOGIC: She is alert, awake, oriented to self only. She is able to move all 4 extremities. Fa ce is symmetric. Speech is clear. Cranial nerves II through XII are grossly intact. There is no s ensory deficit. LABORATORY AND IMAGING DATA: The patient had a CBC that showed a WBC of 10.3, hemoglobin of 11.1, hematocrit of 33, platelets of 285 with 72% neutrophils. INR is 0.89. Chemistry showed a sodium of 124, potassium of 3.2, chloride of 88, bicarb of 26, BUN of 20, creatinine of 1.06, glucose of 110, lactic acid of 2.1, calcium of 9.2. LFTs are normal. Troponin is 0.02. Lipid profile showed trig lycerides of 115, total cholesterol 117, LDL of 38, HDL of 55. Chest x-ray showed small bibasilar infiltrates. CT brain without contrast showed no evidence for gr oss acute infarct, mass effect, or hemorrhage; only atrophy in findings consistent with moderate-to- severe chronic small vessel ischemic changes. ASSESSMENT AND PLAN: Ms. Wilson is an 86-year-old lady with a past medical history of hypertension, gastroesophageal reflux disease, chronic anemia, osteoarthritis, anxiety, dementia, hyperlipidemia, asthma who presents to the emergency room with reported facial weakness and aphasia, now resolved. 1. Probable transient ischemic attack. The patient will be admitted as observation on the telemetry floor for further workup. She cannot p rovide any further history at this time and unfortunately I only got voice mail at [place]. We sh ould try again tomorrow to get more details about her presentation. She will be monitored on telemetry, we are going to check an echocardiogram with bubble study and I discussed her case with Neurology (Dr. Washington). She will be seen in consultation and he also recom mended a CTA of the head and neck. Dr. Luu will see her tomorrow and then we will discuss the i ndication for an MRI. She is already on a statin and her lipid profile is excellent. I am going to add an aspirin. She d id have some bleeding with her colitis in July but this appears to be resolved and I believe at this point the benefits of trying aspirin surpasses the risk of bleeding. Of course, if she develops an episode of bleeding, we are going to stop the aspirin. She will be monitored with neuro checks. I am also going to check hemoglobin A1c. 2. Hyponatremia. The patient has had mild hyponatremia at least since early 2016. She does appear to be more dehydra jerrell at this time with a creatinine of 1.06 from a baseline of 0.95. I am going to give her gentle I V hydration and monitor her sodium. I will also check serum and urine osmolality as well as urinary sodium. 3. Hypertension. We will continue losartan and amlodipine with holding parameters to avoid hypoten kayleigh. 4. Hypokalemia. We will replete. 5. Dementia. Continue supportive care and donepezil. 6. Gastroesophageal reflux disease. We will continue pantoprazole and famotidine. 7. DVT prophylaxis. The patient has a score of 3 on the DVT prophylaxis Risk Assessment Guide. At this point, I will prefer to start aspirin and monitor her for any signs of bleeding as she had thi s episode of GI bleeding in July. For now, she is going to have SCDs but later on if she does not kruger ve any episodes of bleeding we could consider starting subcutaneous heparin. 8. Code status. The patient has been out of the hospital do not resuscitate and that was transferr ed to a [facility]. TIME SPENT: Approximately 65 minutes was spent with the patient interview, medical records review, physical examination to complete this admission, more than half of this time was spent [id number] with the patient in coordination of care. [id number]/[facility] #: [id number]
[2016-11-17 05:35] LABS: Hematocrit 33 % (35-47); Mean Corpuscular HGB Conc 33 g/dl (31-36); Mean Corpuscular Hemoglobin 27 pg (27-31); Mean Corpuscular Volume 79 fL (80-97); Mean Platelet Volume 8 um3 (7.4-10.4); Red Blood Count 4.12 10^6/ul (4.0-5.4); Red Cell Distribution Width 15 % (10.5-15); White Blood Count 7.4 10^3/ul (3.5-10.8)
[2016-11-17 05:49] LABS: BUN/Creatinine Ratio 17.5 (8-20); Calcium 8.8 mg/dL (8.6-10.3); EGFR African American 87.7 (>60); EGFR Non-African American 68.2 (>60); Potassium 3.7 mmol/L (3.5-5.0)
[2016-11-17] MEDS: Omeprazole CAP* 20 MG PO SCH (08:47)
[2016-11-17] MEDS: Losartan TAB* 25 MG PO SCH (08:47)
[2016-11-17] MEDS: Multivitamins/Minerals TAB PO SCH ×2 (08:48→08:52)
[2016-11-17] MEDS: Clotrimazole 1% CREAM* 45 GM TOPICAL SCH (08:48)
[2016-11-17] MEDS: Sertraline* 50 MG TAB PO SCH (08:48)
[2016-11-17] MEDS: Atorvastatin* 10 MG TAB PO SCH (08:48)
[2016-11-17] MEDS: amLODIPine TAB* 5 MG PO SCH (08:48)
[2016-11-17] MEDS: Aspirin EC Low Dose* 81 MG TAB.EC PO SCH (08:48)
[2016-11-17] MEDS: Mometasone/Formoter 200/5 MDI INH SCH ×3 (08:48→20:00)
[2016-11-17] MEDS: Calcium/Vitamin D TAB 250/125* TAB PO SCH (08:48)
--- NOTE | 2016-11-17 13:53 | CONS ---
CONSULTATION REPORT: DATE OF CONSULT: 11/17/16 HISTORY OF PRESENT ILLNESS: Mrs. Tierra Wilson is an 86-year-old woman with a history of hypertension and hyperlipidemia, who was brought to the emergency room after there was an observed facial droop (unclear side) and aphasia for 30 minutes at [facility] where she lives secondary to Alzheimer's disease. Her symptoms resolved since she has been in hospital and she was admitted for workup of TIA. This does occur in the setting of a history of colitis for which she was admitted in July 2016 and is currently off aspirin. Aspirin was restarted on admission, she is also on statin with well-controlled cholesterol of 117 and LDL of 38. On today's visit, Mrs. Wilson could not give further history of her symptoms. She was unaware of why she was here, she did not know where she was and she asked these questions again despite getting education in the beginning of the consult and at the end of the consult. PAST MEDICAL HISTORY: Mrs. Wilson's past medical history according to the chart includes hypertension, hyperlipidemia, Alzheimer's disease, GERD, admission for colitis in July 2016 with some bleeding, chronic anemia, osteoarthritis, anxiety and asthma. The patient reported to me she had no medical problems. MEDICATIONS: Her current medications include: 1. Tylenol 650 mg p.o. q.4 hours p.r.n. pain. 2. Albuterol inhaler 2 puffs q.6 hours p.r.n. shortness of breath and wheezing. 3. Donepezil 5 mg p.o. at bedtime. 4. Dulera 200/5 metered dose inhaler 2 puffs inhaled b.i.d. 5. Omeprazole 20 mg p.o. q.a.m. 6. Amlodipine 5 mg p.o. daily. 7. Aspirin 81 mg p.o. daily. 8. Atorvastatin 10 mg p.o. daily. 9. Calcium with vitamin D 250/125 one tablet p.o. daily. 10. Clotrimazole 1% cream applied topically daily. 11. Losartan 50 mg p.o. daily. 12. Multivitamin 1 tablet p.o. daily. 13. Sertraline 50 mg p.o. daily. ALLERGIES: There are no known drug allergies. FAMILY HISTORY: The patient was unable to give me family history. SOCIAL HISTORY: The patient indicates she is no longer , but could not give me further details. She denies smoking. She denies drinking. She lives in [facility]. REVIEW OF SYSTEMS: I went through 10 review of systems with the patient, in which she denied any problems. Reliability is questioned due to her baseline dementia. PHYSICAL EXAMINATION: On examination, Tierra Cole blood pressure was 170/82 , her pulse is 110, respiratory rate is 18, saturation is 97%. Her pulse has varied between the 90s to 100s and her blood pressure has also varied with the lowest systolic at 133, the highest 170 and diastolics ranging between 67 and 84. There was a regular cardiac rhythm. Her lungs were clear to auscultation. I could not appreciate a carotid bruit or cardiac murmur. She had bruises on various areas of her body on her arms near where IVs will be placed or blood drawn. She had good peripheral pulses in her ankles. No cord to palpation in her calves. No evidence of edema. She was awake and alert. Her voice was soft. She did not know where she was. She did not know the year, the month, the president, and she demonstrated quickly forgetting facts she was told during the consult. She had full extraocular movements, full varghese to confrontation. Pupils were equal and responsive to light. Fundi were difficult to visualize. Her facial expression and sensation were equal. Hearing was equal to finger rub. Palate was upgoing. Tongue was midline. Sternocleidomastoid and trapezius were 5/5 in strength. There was normal bulk and tone. No pronator drift. She gave good strength in her upper and lower extremities. Arthritic changes were noted. She had no evidence of dysmetria with xphgvq-il-mowo movements. Mdld-ua-ewjr movements were difficult for her to understand. Reflexes were 1+ in the upper extremities, absent in lower extremities. Toes were flexor response. Further gait exam was not performed in the setting of clinical status. DIAGNOSTIC STUDIES/LAB DATA: Includes CBC with a white count initially at 10.3 , now 7.4; hemoglobin and hematocrit this morning at 11 and 33 respectively; platelet count 244,000. She had elevated monocyte percentage. Her chemistry initially showed sodium of 124, now 130; potassium initially was 3.2, now improved at 3.7; chloride was low at 88, now 98. Her creatinine was elevated initially at 1.06, now 0.80. Her glucose improved from 110 to 96. Her lactate was 2.1. Liver function tests were otherwise normal. Total cholesterol was 117 , triglycerides 115, LDL 38, HDL 55.8. Her urinalysis did show 1+ esterase, 1+ bacteria with squamous cells present. Please see reports for further details. She had a CT of the brain, which was reviewed directly which showed atrophy with [id number]-la-sqcedm periventricular small vessel ischemic disease. This film was reviewed directly. Please see report for details. CTA of the brain and neck was limited and was interpreted as moderate bilateral proximal ICA stenosis with a right pleural effusion. Please see report for details. IMPRESSION: Mrs. Wilson is an 86-year-old woman with a history of hypertension; hyperlipidemia, on statin with a LDL of 38 and history of Alzheimer's disease, living at [facility], now admitted with a transient episode of facial droop on 1 side (which was unknown) and 'aphasia' for 30 minutes. At this point, exam is nonfocal with only significant findings of dementia, which is quite significant and limiting the history and evaluation. Certainly, this event could have represented a transient ischemic attack and I agree with aspirin. She is on atorvastatin. She does have moderate bilateral ICA stenosis; however, I would treat conservatively in the setting of unknown site of symptoms, age and comorbidities. She is on telemetry and will get an echocardiogram as a cardioembolic source would suggest an alternative treatment. At this point, I am not suggesting MRI of the brain. Pros and cons of MRI were discussed with Dr. Bryant, the hospitalist. Given there was no evidence of bleed on CT, I feel comfortable starting her on an aspirin. If she were to have a cardioembolic source and would have to consider anticoagulation, we may want to locate MRI to see the susceptibility weighted images and possible underlying petechial bleeds, which might change this decision. At this point given her severe dementia, performing a MRI could be quite traumatic. Her blood pressure and pulse have been noted to be up while in hospital and it is unclear to me whether this is due to stress or her intrinsic baseline and Dr. Bryant is following and taking care of her from an internal medicine perspective. Ultimately, if this is stress induced, it would be best to get her out of hospital sooner than later when workup is done. She does have a urine culture pending. Differential diagnosis for the event includes EEG. If her workup for transient ischemic attack is complete, this EEG could be obtained as an outpatient with followup with me as an outpatient if there are significant findings. TIME SPENT: Over 60 minutes was spent in direct [id number] patient care and review of records and discussion with hospice. All questions were answered. [id number]/[facility] #: [id number] [place]
[2016-11-17] MEDS ORDERED: Metoprolol Tartrate IV* 1 MG/ML 5 ML VIAL IV ONE (14:39)
--- NOTE | 2016-11-17 15:58 | PN ---
Subjective Date of Service: 11/17/16 Interval History: Patient seen this afternoon. Appears very anxious, fairly significant dementia. Cannot tell me where she is or why. As per Renard Eduardo patient had 15-30 mins of facial droop that resolved prior to EMS arriving. They state patient's current state is her baseline. She denies pain or SOB. Family History: Unchanged from Admission Social History: Unchanged from Admission Past Medical History: Unchanged from Admission Objective Active Medications: Acetaminophen (Tylenol Tab*) 650 mg PO Q4H PRN Albuterol (Ventolin Hfa Inhaler*) 2 puff INH Q6H PRN Amlodipine Besylate (Norvasc Tab*) 5 mg PO DAILY ZOYA Aspirin (Aspirin Ec Low Dose*) 81 mg PO DAILY ZOYA Atorvastatin Calcium (Lipitor*) 10 mg PO DAILY ZOYA Calcium/Vitamin D (Oscal D Tab 250/125*) 1 tab PO DAILY ZOYA Clotrimazole (Clotrimazole 1%*) 1 applic TOPICAL DAILY ZOYA Donepezil HCl (Aricept Tab*) 5 mg PO BEDTIME ZOYA Losartan Potassium (Cozaar Tab*) 50 mg PO DAILY ZOYA Mometasone Furoate/Formoterol Fumar (Dulera 200/5 Mdi*) 2 puff INH BID ZOYA Multivitamins/Minerals (Theragran/Minerals Tab*) 1 tab PO DAILY ZOYA Omeprazole (Prilosec Cap*) 20 mg PO 0730 ZOYA Sertraline HCl (Zoloft*) 50 mg PO DAILY ZOYA Vital Signs 11/16/16 11/16/16 11/16/16 16:38 16:48 17:00 Temperature Pulse Rate 103 100 Respiratory 16 18 Rate Blood Pressure 166/84 152/67 (mmHg) O2 Sat by Pulse 95 96 Oximetry 11/17/16 11/17/16 11/17/16 07:22 08:00 11:01 Temperature 98.7 F Pulse Rate 110 106 Respiratory 18 18 24 Rate Blood Pressure 170/82 142/78 (mmHg) O2 Sat by Pulse 97 94 Oximetry 11/17/16 15:17 Temperature 97.4 F Pulse Rate 91 Respiratory 16 Rate Blood Pressure 149/79 (mmHg) O2 Sat by Pulse 93 Oximetry Oxygen Devices in Use Now: None Appearance: Elderly, F, sitting in bed, appears anxious Eyes: No Scleral Icterus Ears/Nose/Mouth/Throat: Mucous Membranes Moist Neck: NL Appearance and Movements; NL JVP Respiratory: Symmetrical Chest Expansion and Respiratory Effort, Clear to Auscultation Cardiovascular: NL Sounds; No Murmurs; No JVD, - - Tachycardia Abdominal: NL Sounds; No Tenderness; No Distention Lymphatic: No Cervical Adenopathy Extremities: No Edema Skin: No Rash or Ulcers Neurological: - - Alert, oriented to self only, no focal deficits, casing cleaner intact Result Diagrams: 11/17/16 05:20 11/17/16 05:20 Assess/Plan/Problems-Billing Assessment: TIA in an 86 yo F with hx of HTN, HLD, dementia, anxiety, GERD, asthma - Patient Problems (1) TIA (transient ischemic attack) Current Visit: Yes Comment: Appreciate Neuro assistance. Continue ASA and statin. CTA shows moderate B/L ICA stenosis. Will hold on MRI based on discussion with Neuro. Continue tele and echo is pending. EEG recommended by Neuro but does not need to stay in the hospital if remainder of work-up is negative. (2) Hyponatremia Current Visit: Yes Comment: Improved with IV fluids. Recheck in AM after additional 500 cc. (3) Tachycardia Current Visit: Yes Comment: Appeared to have SVT on tele, improved with IV metoprolol. Continue to monitor on tele. (4) HTN (hypertension) Current Visit: No Comment: BPs a bit elevated this morning. Continue Losartan and Amlodipine for now. Has been on Atenolol in the past. (5) GERD (gastroesophageal reflux disease) Current Visit: No Comment: Continue Omeprazole. Famotidine held. (6) Dementia Current Visit: No Status: Acute Code(s): F03.90 - UNSPECIFIED DEMENTIA WITHOUT BEHAVIORAL DISTURBANCE SNOMED Code(s): 73072473 Comment: Continue Aricept. (7) DVT prophylaxis Current Visit: No Comment: SCDs for now Status and Disposition: Inpatient for CVA work-up
[2016-11-17] MEDS ORDERED: NS 0.9% 500 ML BAG* 500 ML IV ONE (16:02)
[2016-11-17] MEDS: Donepezil TAB* 5 MG PO SCH (19:31)
[2016-11-18] MEDS ORDERED: Metoprolol Tartrate IV* 1 MG/ML 5 ML VIAL IV ONE (00:52)
--- NOTE | 2016-11-18 00:53 | PN ---
Progress Note - Progress Note Date of Service: 11/18/16 Note: Cross cover: HR >120 x 20 minutes Asymptomatic Metoprolol given this afternoon for same reasons with success. Metoprolol 5mg IV now once and follow
[2016-11-18] MEDS: Acetaminophen TAB* 325 MG PO PRN (01:21)
[2016-11-18 05:53] LABS: BUN/Creatinine Ratio 19.6 (8-20); Calcium 9.1 mg/dL (8.6-10.3); EGFR African American 70.2 (>60); EGFR Non-African American 54.6 (>60); Potassium 3.7 mmol/L (3.5-5.0)
[2016-11-18] MEDS: Mometasone/Formoter 200/5 MDI INH SCH ×2 (07:48→20:10)
[2016-11-18] MEDS: Aspirin EC Low Dose* 81 MG TAB.EC PO SCH (08:48)
[2016-11-18] MEDS: Sertraline* 50 MG TAB PO SCH (08:48)
[2016-11-18] MEDS: Calcium/Vitamin D TAB 250/125* TAB PO SCH (08:48)
[2016-11-18] MEDS: amLODIPine TAB* 5 MG PO SCH (08:48)
[2016-11-18] MEDS: Omeprazole CAP* 20 MG PO SCH (08:49)
[2016-11-18] MEDS: Atorvastatin* 10 MG TAB PO SCH (08:49)
[2016-11-18] MEDS: Losartan TAB* 25 MG PO SCH (08:49)
[2016-11-18] MEDS: Multivitamins/Minerals TAB PO SCH (08:49)
[2016-11-18] MEDS: Clotrimazole 1% CREAM* 45 GM TOPICAL SCH (08:52)
--- NOTE | 2016-11-18 14:07 | PN ---
Subjective Date of Service: 11/18/16 Interval History: No C/O. Note poor memory. Family History: Unchanged from Admission Social History: Unchanged from Admission Past Medical History: Unchanged from Admission Objective Active Medications: Acetaminophen (Tylenol Tab*) 650 mg PO Q4H PRN PRN Reason: PAIN Last Admin: 11/18/16 01:21 Dose: 650 mg Albuterol (Ventolin Hfa Inhaler*) 2 puff INH Q6H PRN PRN Reason: SOB/WHEEZING Amlodipine Besylate (Norvasc Tab*) 5 mg PO DAILY [facility] Last Admin: 11/18/16 08:48 Dose: 5 mg Aspirin (Aspirin Ec Low Dose*) 81 mg PO DAILY [facility] Last Admin: 11/18/16 08:48 Dose: 81 mg Atorvastatin Calcium (Lipitor*) 10 mg PO DAILY [facility] Last Admin: 11/18/16 08:49 Dose: 10 mg Calcium/Vitamin D (Oscal D Tab 250/125*) 1 tab PO DAILY [facility] Last Admin: 11/18/16 08:48 Dose: 1 tab Clotrimazole (Clotrimazole 1%*) 1 applic TOPICAL DAILY [facility] Last Admin: 11/18/16 08:52 Dose: 1 applic Donepezil HCl (Aricept Tab*) 5 mg PO BEDTIME [facility] Last Admin: 11/17/16 19:31 Dose: 5 mg Losartan Potassium (Cozaar Tab*) 50 mg PO DAILY [facility] Last Admin: 11/18/16 08:49 Dose: 50 mg Mometasone Furoate/Formoterol Fumar (Dulera 200/5 Mdi*) 2 puff INH BID ZOYA PRN Reason: Protocol Last Admin: 11/18/16 07:48 Dose: 2 puff Multivitamins/Minerals (Theragran/Minerals Tab*) 1 tab PO DAILY ZOYA Last Admin: 11/18/16 08:49 Dose: 1 tab Omeprazole (Prilosec Cap*) 20 mg PO 0730 [facility] Last Admin: 11/18/16 08:49 Dose: 20 mg Sertraline HCl (Zoloft*) 50 mg PO DAILY ZOYA Last Admin: 11/18/16 08:48 Dose: 50 mg Vital Signs 11/17/16 11/17/16 11/17/16 15:17 19:15 20:00 Temperature 97.4 F 97.3 F Pulse Rate 91 109 Respiratory 16 20 16 Rate Blood Pressure 149/79 152/82 (mmHg) O2 Sat by Pulse 93 95 Oximetry 11/17/16 11/18/16 11/18/16 23:26 02:53 07:47 Temperature 97.5 F 98.2 F 98.0 F Pulse Rate 116 101 106 Respiratory 16 20 20 Rate Blood Pressure 155/74 127/68 134/71 (mmHg) O2 Sat by Pulse 94 94 95 Oximetry 11/18/16 11/18/16 08:00 11:11 Temperature Pulse Rate 95 Respiratory 16 14 Rate Blood Pressure 114/59 (mmHg) O2 Sat by Pulse 93 Oximetry Oxygen Devices in Use Now: None Appearance: Alert, partly up in bed. Neutral affect. Looks comfortable but bewildered. Neck: NL Appearance and Movements; NL JVP, No Thyroid Enlargement, Masses Respiratory: Symmetrical Chest Expansion and Respiratory Effort, Clear to Auscultation, Clear to Percussion Cardiovascular: NL Sounds; No Murmurs; No JVD, RRR, No Edema, - Neurological: NL Sensation - Can state her full name, cannot guess her age, does not know where she is now or where she lives. Result Diagrams: 11/17/16 05:20 11/18/16 04:36 Additional Lab and Data: Lab Results 11/16/16 11/16/16 11/16/16 Range/Units 14:15 14:15 14:15 WBC 10.3 (3.5-10.8) 10^3/ul RBC 4.17 (4.0-5.4) 10^6/ul Hgb 11.1 L (12.0-16.0) g/dl Hct 33 L (35-47) % MCV 78 L (80-97) fL MCH 27 (27-31) pg MCHC 34 (31-36) g/dl RDW 15 (10.5-15) % Plt Count 285 (150-450) 10^3/ul MPV 9 (7.4-10.4) um3 Neut % (Auto) 72.9 (38-83) % Lymph % (Auto) 14.2 L (25-47) % [place] % (Auto) 10.9 H (1-9) % Eos % (Auto) 1.2 (0-6) % Baso % (Auto) 0.8 (0-2) % Absolute Neuts (auto) 7.5 (1.5-7.7) 10^3/ul Absolute Lymphs (auto) 1.5 (1.0-4.8) 10^3/ul Absolute Monos (auto) 1.1 H (0-0.8) 10^3/ul Absolute Eos (auto) 0.1 (0-0.6) 10^3/ul Absolute Basos (auto) 0.1 (0-0.2) 10^3/ul Absolute Nucleated RBC 0 10^3/ul Nucleated RBC % 0 INR (Anticoag Therapy) 0.89 (0.89-1.11) Sodium 124 L (133-145) mmol/L Potassium 3.2 L (3.5-5.0) mmol/L Chloride 88 L (101-111) mmol/L Carbon Dioxide 26 (22-32) mmol/L Anion Gap 10 (2-11) mmol/L BUN 20 (6-24) mg/dL Creatinine 1.06 H (0.51-0.95) mg/dL Est GFR ( Amer) 63.4 (>60) Est GFR (Non-Af Amer) 49.3 (>60) BUN/Creatinine Ratio 18.9 (8-20) Glucose 110 H (70-100) mg/dL Lactic Acid (0.5-2.0) mmol/L Calcium 9.2 (8.6-10.3) mg/dL Total Bilirubin 0.40 (0.2-1.0) mg/dL AST 22 (13-39) U/L ALT 13 (7-52) U/L Alkaline Phosphatase 90 (34-104) U/L Troponin I 0.02 (<0.04) ng/mL Total Protein 7.8 (6.4-8.9) g/dL Albumin 3.9 (3.2-5.2) g/dL Globulin 3.9 (2-4) g/dL Albumin/Globulin Ratio 1.0 (1-3) Triglycerides 115 mg/dL Cholesterol 117 mg/dL LDL Cholesterol 38 mg/dL HDL Cholesterol 55.8 mg/dL Urine Color Urine Appearance Urine pH (5-9) Ur Specific [place] (1.010-1.030) Urine Protein (Negative) Urine Ketones (Negative) Urine Blood (Negative) Urine Nitrate (Negative) Urine Bilirubin (Negative) Urine Urobilinogen (Negative) Ur Leukocyte Esterase (Negative) Urine WBC (Auto) (Absent) Urine RBC (Auto) (Absent) Ur Squamous Epith Cells (Absent) Urine Bacteria (Absent) Urine Glucose (Negative) Urine Ascorbic Acid (Negative) 11/16/16 11/16/16 Range/Units 14:15 16:48 WBC (3.5-10.8) 10^3/ul RBC (4.0-5.4) 10^6/ul Hgb (12.0-16.0) g/dl Hct (35-47) % MCV (80-97) fL MCH (27-31) pg MCHC (31-36) g/dl RDW (10.5-15) % Plt Count (150-450) 10^3/ul MPV (7.4-10.4) um3 Neut % (Auto) (38-83) % Lymph % (Auto) (25-47) % [place] % (Auto) (1-9) % Eos % (Auto) (0-6) % Baso % (Auto) (0-2) % Absolute Neuts (auto) (1.5-7.7) 10^3/ul Absolute Lymphs (auto) (1.0-4.8) 10^3/ul Absolute Monos (auto) (0-0.8) 10^3/ul Absolute Eos (auto) (0-0.6) 10^3/ul Absolute Basos (auto) (0-0.2) 10^3/ul Absolute Nucleated RBC 10^3/ul Nucleated RBC % INR (Anticoag Therapy) (0.89-1.11) Sodium (133-145) mmol/L Potassium (3.5-5.0) mmol/L Chloride (101-111) mmol/L Carbon Dioxide (22-32) mmol/L Anion Gap (2-11) mmol/L BUN (6-24) mg/dL Creatinine (0.51-0.95) mg/dL Est GFR ( Amer) (>60) Est GFR (Non-Af Amer) (>60) BUN/Creatinine Ratio (8-20) Glucose (70-100) mg/dL Lactic Acid 2.1 H* (0.5-2.0) mmol/L Calcium (8.6-10.3) mg/dL Total Bilirubin (0.2-1.0) mg/dL AST (13-39) U/L ALT (7-52) U/L Alkaline Phosphatase (34-104) U/L Troponin I (<0.04) ng/mL Total Protein (6.4-8.9) g/dL Albumin (3.2-5.2) g/dL Globulin (2-4) g/dL Albumin/Globulin Ratio (1-3) Triglycerides mg/dL Cholesterol mg/dL LDL Cholesterol mg/dL HDL Cholesterol mg/dL Urine Color Yellow Urine Appearance Clear Urine pH 6.0 (5-9) Ur Specific [place] 1.005 L (1.010-1.030) Urine Protein Negative (Negative) Urine Ketones Negative (Negative) Urine Blood Negative (Negative) Urine Nitrate Negative (Negative) Urine Bilirubin Negative (Negative) Urine Urobilinogen Negative (Negative) Ur Leukocyte Esterase 1+ H (Negative) Urine WBC (Auto) Trace(0-5/hpf) (Absent) Urine RBC (Auto) Absent (Absent) Ur Squamous Epith Cells Present H (Absent) Urine Bacteria 1+ H (Absent) Urine Glucose Negative (Negative) Urine Ascorbic Acid * H (Negative) Assess/Plan/Problems-Billing Assessment: TIA in an 86 yo F with hx of HTN, HLD, dementia, anxiety, GERD, asthma - Patient Problems (1) TIA (transient ischemic attack) Current Visit: Yes Status: Acute Comment: Continue ASA and statin. CTA shows moderate B/L ICA stenosis. Will hold on MRI based on discussion with Neuro. Continue tele and echo is pending. EEG for 11/19. (2) Dementia Current Visit: No Status: Acute Code(s): F03.90 - UNSPECIFIED DEMENTIA WITHOUT BEHAVIORAL DISTURBANCE SNOMED Code(s): 68602243 Comment: Continue Aricept. Advanced dementia. GDR sertraline start 11/19. (3) GERD (gastroesophageal reflux disease) Current Visit: No Status: Acute Code(s): K21.9 - GASTRO-ESOPHAGEAL REFLUX DISEASE WITHOUT ESOPHAGITIS SNOMED Code(s): 053346978 Comment: Continue Omeprazole. Famotidine held. (4) HTN (hypertension) Current Visit: No Status: Acute Code(s): I10 - ESSENTIAL (PRIMARY) HYPERTENSION SNOMED Code(s): 34497560 Comment: Continue Losartan and Amlodipine for now. Has been on Atenolol in the past. (5) Hyponatremia Current Visit: Yes Status: Acute Code(s): E87.1 - HYPO-OSMOLALITY AND HYPONATREMIA SNOMED Code(s): 14858830 Comment: Stable. (6) Tachycardia Current Visit: Yes Status: Acute Code(s): R00.0 - TACHYCARDIA, UNSPECIFIED SNOMED Code(s): 6016160 Comment: Appeared to have SVT on tele, improved with IV metoprolol. Continue to monitor on tele. Status and Disposition: Inpatient for CVA work-up
--- NOTE | 2016-11-18 19:15 | PN ---
FOLLOWUP NOTE: DATE OF FOLLOWUP: 11/18/16 HISTORY OF PRESENT ILLNESS: Tierra Wilson is an 86-year-old woman with a history of hypertension and hyperlipidemia, on statin, and Alzheimer disease who was admitted with 30 minutes of change in facial expression and aphasia in the setting of severe dementia by clinical evaluation. No new events have been noted since last night. The patient had no further input. She was relaxed and indicated things were okay. Dr. Chow was called last night and metoprolol was started. PHYSICAL EXAMINATION: On examination, her most recent vitals included temperature of 98 degrees, pulse 102, respiratory rate of 16, saturation 95% and blood pressure 134/71. On examination, she had regular cardiac rhythm. Her lungs were clear to auscultation. She was pleasant, smiled when we talked about the weather and the fact that it was Labor Day. She could make comments that at times made sense, and other times her comments were in shortened sentences or disjointed thoughts. Her facial expression was symmetric. She had full extraocular movements. She blinked to threat bilaterally. There was no pronator drift. She gave good proximal and distal strength in her arms and her legs. Her MAR was reviewed. Of note, she is on aspirin and atorvastatin. DATA: Today includes basic metabolic panel. Her sodium is low at 130 and stable. Creatinine slightly increased at 0.97, glucose of 107 with hemoglobin A1c of 5.2. Her calcium was within normal limits at 9.1. Dr. Chow was called last night due to tachycardia over 120 and metoprolol was provided. IMPRESSION: Tierra Wilson is an 86-year-old woman with a history of hypertension, hyperlipidemia on statin and Alzheimer disease who presented to the ER from [facility] with change in facial expression and aphasia which resolved by the time she came to the emergency room. She was admitted for workup of these symptoms with differential diagnosis of transient ischemic attack versus seizure. She has been started on aspirin and atorvastatin for potential transient ischemic attack. Her echocardiogram is pending and she is on telemetry. Differential diagnosis of seizure was raised and EEG is ordered. She had some changes in her urine on admission and urine culture has been received in the laboratory. Overall, she is clinically stable. As discussed in my consultation note, pros and cons of MRI were discussed with the hospitalist at this point; if the remainder of tests remain negative, I would treat with aspirin and atorvastatin. TIME SPENT: Twenty minutes was spent in direct [id number] patient care and a total of 25 minutes was spent in coordination of care. [id number]/[facility] #: [id number] [place]
[2016-11-18] MEDS: Donepezil TAB* 5 MG PO SCH (20:40)
[2016-11-19] MEDS: Acetaminophen TAB* 325 MG PO PRN (08:13)
[2016-11-19] MEDS: Sertraline* 25 MG TAB PO SCH (08:14)
[2016-11-19] MEDS: amLODIPine TAB* 5 MG PO SCH (08:14)
[2016-11-19] MEDS: Omeprazole CAP* 20 MG PO SCH (08:14)
[2016-11-19] MEDS: Losartan TAB* 25 MG PO SCH (08:14)
[2016-11-19] MEDS: Calcium/Vitamin D TAB 250/125* TAB PO SCH (08:14)
[2016-11-19] MEDS: Atorvastatin* 10 MG TAB PO SCH (08:14)
[2016-11-19] MEDS: Clotrimazole 1% CREAM* 45 GM TOPICAL SCH (08:14)
[2016-11-19] MEDS: Aspirin EC Low Dose* 81 MG TAB.EC PO SCH (08:14)
[2016-11-19] MEDS: Mometasone/Formoter 200/5 MDI INH SCH ×2 (09:02→20:44)
[2016-11-19] MEDS: Multivitamins/Minerals TAB PO SCH (09:06)
--- NOTE | 2016-11-19 13:26 | ECHO ---
Patient: JUANA CLARK [facility] Rec#: [id number] : 1930 Date: 11/19/2016 Age: 86y Height: 149.86 cm / 59.0 in Weight: 56.7 kg / 125.0 lbs Sex: F BSA: 1.51 Room#: [facility] Admit Date#: 11/16/2016 Type: Inpatient Referring: Irma Keating MD Reading: Dez Capellan MD Animal Handler: Radha Horne RDCS CC: Jody Lopez MD Transthoracic Echocardiogram Indication: TIA BP: 171/78 HR: 93 Rhythm: NSR Findings History: HTN, GERD, anemia, HLD, Alzheimers. Technical Comments: The study quality is fair. The study is technically limited due to poor apical windows. Left Ventricle: The left ventricular chamber size is decreased. Mild to moderate concentric left ventricular hypertrophy is observed. There is a prominent septal knuckle. Global left ventricular wall motion and contractility are within normal limits. The left ventricle appears hyperdynamic. The estimated ejection fraction is greater than 65%. Abnormal left ventricular diastolic function is observed. Abnormal left ventricular diastolic filling is observed, consistent with impaired relaxation. The patient was unable to perform a Valsalva maneuver. Left Atrium: The left atrium is mildly dilated. Right Ventricle: Moderator Band present. The right ventricle is mildly dilated. The right ventricular global systolic function is normal. Right Atrium: The right atrium is mildly dilated. Interatrial septum appears intact without evidence of shunting. There is no evidence of patent foramen ovale shunting. A patent foramen ovale is not demonstrated with color Doppler and agitated contrast. Aortic Valve: The aortic valve is trileaflet. The aortic valve leaflets are mildly thickened. There is a trace of aortic regurgitation. There is no evidence of aortic stenosis. Mitral Valve: Severe mitral annular calcification present. The mitral valve leaflets are mildly thickened. There is mild mitral regurgitation. There is no evidence of mitral stenosis. Tricuspid Valve: The tricuspid valve leaflets are normal. There is mild to moderate tricuspid regurgitation. The right ventricular systolic pressure is estimated at 34 mmHg. There is evidence of borderline pulmonary hypertension. There is no tricuspid stenosis. Pulmonic Valve: The pulmonic valve structure is not well visualized. There is a trace pulmonic regurgitation. There is no pulmonic stenosis. Pericardium: There is no significant pericardial effusion. Aorta: There is mild dilatation of the ascending aorta. The aortic arch is not well visualized. There is no dilation of the aortic root. Pulmonary Artery: The main pulmonary artery appears normal. Venous: The inferior vena cava appears normal in size. There is a greater than 50% respiratory change in the inferior vena cava dimension. Contrast: Normal saline was used as contrast for the bubble study. Images 1 and 2. Intravenous contrast was used to help determine presence of intracardiac shunting. Conclusions Patient not able to valsalva to accurately assess for atrial shunting. The following comments are based on imaging without the valsalva. A patent foramen ovale is not demonstrated with color Doppler and agitated contrast. Interatrial septum appears intact without evidence of shunting. Mild to moderate concentric left ventricular hypertrophy is observed. There is a prominent septal knuckle. The left ventricle appears hyperdynamic. The estimated ejection fraction is greater than 65%. Severe mitral annular calcification present. The mitral valve leaflets are mildly thickened. There is mild mitral regurgitation. There is no evidence of mitral stenosis. There is a trace of aortic regurgitation. There is a trace pulmonic regurgitation. There is mild to moderate tricuspid regurgitation. There is mild dilatation of the ascending aorta. No reports of prior studies offered for comparison. Measurements Name Value Normal Range RVIDd (AP) 2D 3 cm (0.9 - 2.6) RVDdMajor (2D) 4.9 cm (2.2 - 4.4) RAd ISD 4CH 5.4 cm (3.4 - 4.9) RA (A4C)W 4 cm (2.9 - 4.6) IVSd (2D) 1.4 cm (0.6 - 1) LVPWd (2D) 1.2 cm (0.6 - 1) LVIDd (2D) 3.1 cm (3.6 - 5.4) LVIDs (2D) 1.6 cm - LV FS (2D) 48 % (25 - 45) Aortic Annulus 1.4 cm (1.4 - 2.6) Ao root diameter (2D) 3 cm (2.1 - 3.5) Ascending Ao 3.6 cm (2.1 - 3.4) LA dimension (AP) 2D 3.4 cm (2.3 - 3.8) LAd ISD 4CH 5.7 cm (2.9 - 5.3) LA ISD 4CH W 4.2 cm (2.5 - 4.5) Name Value Normal Range LA ESV SP 4CH (A/L) 60 ml - LA ESV SP 2CH (A/L) 38 ml - LA ESV BP (A/L) 50 ml - LA ESV BP (A/L) index 33.3 ml/m2 - LA ESV SP 4CH (MOD) 56 ml - LA ESV SP 2CH (MOD) 36 ml - Name Value Normal Range MV E-wave Vmax 1.09 m/sec - MV deceleration time 143.6 msec - MV A-wave Vmax 1.5 m/sec - MV E:A ratio 0.73 ratio - LV septal e' Vmax 0.03 m/sec - LV lateral e' Vmax 0.03 m/sec - LV E:e' septal ratio 36.33 ratio - LV E:e' lateral ratio 36.33 ratio - Name Value Normal Range AV Vmax 1.4 m/sec - AV VTI 26.9 cm - AV peak gradient 7.71 mmHg - AV mean gradient 5 mmHg - LVOT Vmax 1.2 m/sec - LVOT VTI 24.93 cm - LVOT peak gradient 6 mmHg - LVOT mean gradient 4.34 mmHg - Name Value Normal Range TR Vmax 2.8 m/sec - TR peak gradient 31 mmHg - RAP 3 mmHg - RVSP 34 mmHg - IVC diameter 1.7 cm - Name Value Normal Range PV Vmax 0.87 m/sec - PV peak gradient 3 mmHg -
--- NOTE | 2016-11-19 13:35 | PN ---
Subjective Date of Service: 11/19/16 Interval History: Patient offers no c/o, not clear if she could make her needs known. Family History: Unchanged from Admission Social History: Unchanged from Admission Past Medical History: Unchanged from Admission Objective Active Medications: Acetaminophen (Tylenol Tab*) 650 mg PO Q4H PRN PRN Reason: PAIN Last Admin: 11/19/16 08:13 Dose: 650 mg Albuterol (Ventolin Hfa Inhaler*) 2 puff INH Q6H PRN PRN Reason: SOB/WHEEZING Amlodipine Besylate (Norvasc Tab*) 5 mg PO DAILY [facility] Last Admin: 11/19/16 08:14 Dose: 5 mg Aspirin (Aspirin Ec Low Dose*) 81 mg PO DAILY [facility] Last Admin: 11/19/16 08:14 Dose: 81 mg Atorvastatin Calcium (Lipitor*) 10 mg PO DAILY [facility] Last Admin: 11/19/16 08:14 Dose: 10 mg Calcium/Vitamin D (Oscal D Tab 250/125*) 1 tab PO DAILY [facility] Last Admin: 11/19/16 08:14 Dose: 1 tab Clotrimazole (Clotrimazole 1%*) 1 applic TOPICAL DAILY [facility] Last Admin: 11/19/16 08:14 Dose: 1 applic Donepezil HCl (Aricept Tab*) 5 mg PO BEDTIME [facility] Last Admin: 11/18/16 20:40 Dose: 5 mg Losartan Potassium (Cozaar Tab*) 50 mg PO DAILY [facility] Last Admin: 11/19/16 08:14 Dose: 50 mg Mometasone Furoate/Formoterol Fumar (Dulera 200/5 Mdi*) 2 puff INH BID ZOYA PRN Reason: Protocol Last Admin: 11/19/16 09:02 Dose: Not Given Multivitamins/Minerals (Theragran/Minerals Tab*) 1 tab PO DAILY [facility] Last Admin: 11/19/16 09:06 Dose: Not Given Omeprazole (Prilosec Cap*) 20 mg PO 0730 ZOYA Last Admin: 11/19/16 08:14 Dose: 20 mg Sertraline HCl (Zoloft*) 25 mg PO DAILY [facility] Last Admin: 11/19/16 08:14 Dose: 25 mg Vital Signs 11/18/16 11/18/16 11/18/16 15:37 18:34 19:45 Temperature 97.9 F 98.8 F Pulse Rate 110 115 Respiratory 16 20 18 Rate Blood Pressure 123/63 167/78 (mmHg) O2 Sat by Pulse 97 95 Oximetry 11/18/16 11/18/16 11/19/16 20:00 23:53 03:56 Temperature 98.7 F 98.5 F Pulse Rate 116 115 Respiratory 16 24 24 Rate Blood Pressure 144/75 170/81 (mmHg) O2 Sat by Pulse 96 94 Oximetry 11/19/16 11/19/16 07:48 07:55 Temperature 99.9 F Pulse Rate 111 Respiratory 28 26 Rate Blood Pressure 150/75 (mmHg) O2 Sat by Pulse 94 Oximetry Oxygen Devices in Use Now: None Appearance: Alert, partly up in bed. Neutral affect. Looks confused but otherwise comfortable. Eyes: No Scleral Icterus Respiratory: Symmetrical Chest Expansion and Respiratory Effort, Clear to Auscultation, Clear to Percussion Skin: No Rash or Ulcers, No Nodules or Sclerosis, - Neurological: NL Sensation Result Diagrams: 11/17/16 05:20 11/18/16 04:36 Additional Lab and Data: Lab Results 11/16/16 11/16/16 11/16/16 Range/Units 14:15 14:15 14:15 WBC 10.3 (3.5-10.8) 10^3/ul RBC 4.17 (4.0-5.4) 10^6/ul Hgb 11.1 L (12.0-16.0) g/dl Hct 33 L (35-47) % MCV 78 L (80-97) fL MCH 27 (27-31) pg MCHC 34 (31-36) g/dl RDW 15 (10.5-15) % Plt Count 285 (150-450) 10^3/ul MPV 9 (7.4-10.4) um3 Neut % (Auto) 72.9 (38-83) % Lymph % (Auto) 14.2 L (25-47) % [place] % (Auto) 10.9 H (1-9) % Eos % (Auto) 1.2 (0-6) % Baso % (Auto) 0.8 (0-2) % Absolute Neuts (auto) 7.5 (1.5-7.7) 10^3/ul Absolute Lymphs (auto) 1.5 (1.0-4.8) 10^3/ul Absolute Monos (auto) 1.1 H (0-0.8) 10^3/ul Absolute Eos (auto) 0.1 (0-0.6) 10^3/ul Absolute Basos (auto) 0.1 (0-0.2) 10^3/ul Absolute Nucleated RBC 0 10^3/ul Nucleated RBC % 0 INR (Anticoag Therapy) 0.89 (0.89-1.11) Sodium 124 L (133-145) mmol/L Potassium 3.2 L (3.5-5.0) mmol/L Chloride 88 L (101-111) mmol/L Carbon Dioxide 26 (22-32) mmol/L Anion Gap 10 (2-11) mmol/L BUN 20 (6-24) mg/dL Creatinine 1.06 H (0.51-0.95) mg/dL Est GFR ( Amer) 63.4 (>60) Est GFR (Non-Af Amer) 49.3 (>60) BUN/Creatinine Ratio 18.9 (8-20) Glucose 110 H (70-100) mg/dL Lactic Acid (0.5-2.0) mmol/L Calcium 9.2 (8.6-10.3) mg/dL Total Bilirubin 0.40 (0.2-1.0) mg/dL AST 22 (13-39) U/L ALT 13 (7-52) U/L Alkaline Phosphatase 90 (34-104) U/L Troponin I 0.02 (<0.04) ng/mL Total Protein 7.8 (6.4-8.9) g/dL Albumin 3.9 (3.2-5.2) g/dL Globulin 3.9 (2-4) g/dL Albumin/Globulin Ratio 1.0 (1-3) Triglycerides 115 mg/dL Cholesterol 117 mg/dL LDL Cholesterol 38 mg/dL HDL Cholesterol 55.8 mg/dL Urine Color Urine Appearance Urine pH (5-9) Ur Specific Byers (1.010-1.030) Urine Protein (Negative) Urine Ketones (Negative) Urine Blood (Negative) Urine Nitrate (Negative) Urine Bilirubin (Negative) Urine Urobilinogen (Negative) Ur Leukocyte Esterase (Negative) Urine WBC (Auto) (Absent) Urine RBC (Auto) (Absent) Ur Squamous Epith Cells (Absent) Urine Bacteria (Absent) Urine Glucose (Negative) Urine Ascorbic Acid (Negative) 11/16/16 11/16/16 Range/Units 14:15 16:48 WBC (3.5-10.8) 10^3/ul RBC (4.0-5.4) 10^6/ul Hgb (12.0-16.0) g/dl Hct (35-47) % MCV (80-97) fL MCH (27-31) pg MCHC (31-36) g/dl RDW (10.5-15) % Plt Count (150-450) 10^3/ul MPV (7.4-10.4) um3 Neut % (Auto) (38-83) % Lymph % (Auto) (25-47) % [place] % (Auto) (1-9) % Eos % (Auto) (0-6) % Baso % (Auto) (0-2) % Absolute Neuts (auto) (1.5-7.7) 10^3/ul Absolute Lymphs (auto) (1.0-4.8) 10^3/ul Absolute Monos (auto) (0-0.8) 10^3/ul Absolute Eos (auto) (0-0.6) 10^3/ul Absolute Basos (auto) (0-0.2) 10^3/ul Absolute Nucleated RBC 10^3/ul Nucleated RBC % INR (Anticoag Therapy) (0.89-1.11) Sodium (133-145) mmol/L Potassium (3.5-5.0) mmol/L Chloride (101-111) mmol/L Carbon Dioxide (22-32) mmol/L Anion Gap (2-11) mmol/L BUN (6-24) mg/dL Creatinine (0.51-0.95) mg/dL Est GFR ( Amer) (>60) Est GFR (Non-Af Amer) (>60) BUN/Creatinine Ratio (8-20) Glucose (70-100) mg/dL Lactic Acid 2.1 H* (0.5-2.0) mmol/L Calcium (8.6-10.3) mg/dL Total Bilirubin (0.2-1.0) mg/dL AST (13-39) U/L ALT (7-52) U/L Alkaline Phosphatase (34-104) U/L Troponin I (<0.04) ng/mL Total Protein (6.4-8.9) g/dL Albumin (3.2-5.2) g/dL Globulin (2-4) g/dL Albumin/Globulin Ratio (1-3) Triglycerides mg/dL Cholesterol mg/dL LDL Cholesterol mg/dL HDL Cholesterol mg/dL Urine Color Yellow Urine Appearance Clear Urine pH 6.0 (5-9) Ur Specific Byers 1.005 L (1.010-1.030) Urine Protein Negative (Negative) Urine Ketones Negative (Negative) Urine Blood Negative (Negative) Urine Nitrate Negative (Negative) Urine Bilirubin Negative (Negative) Urine Urobilinogen Negative (Negative) Ur Leukocyte Esterase 1+ H (Negative) Urine WBC (Auto) Trace(0-5/hpf) (Absent) Urine RBC (Auto) Absent (Absent) Ur Squamous Epith Cells Present H (Absent) Urine Bacteria 1+ H (Absent) Urine Glucose Negative (Negative) Urine Ascorbic Acid * H (Negative) Microbiology and Other Data: Microbiology 11/16/16 16:48 Urine Culture - Final Urine Enterococcus Faecalis Normal Roc[place] Assess/Plan/Problems-Billing Assessment: TIA in an 86 yo F with hx of HTN, HLD, dementia, anxiety, GERD, asthma - Patient Problems (1) TIA (transient ischemic attack) Current Visit: Yes Status: Acute Comment: Continue ASA and statin. CTA shows moderate B/L ICA stenosis. Will hold on MRI based on discussion with Neuro. Echo showed minor abnormalites only, nl LVEF. EEG report pending. (2) Dementia Current Visit: No Status: Acute Code(s): F03.90 - UNSPECIFIED DEMENTIA WITHOUT BEHAVIORAL DISTURBANCE SNOMED Code(s): 64716360 Comment: Continue Aricept. Advanced dementia. GDR sertraline start 11/19. Poor caloric and fluid intake. Palliative consult requested. (3) GERD (gastroesophageal reflux disease) Current Visit: No Status: Acute Code(s): K21.9 - GASTRO-ESOPHAGEAL REFLUX DISEASE WITHOUT ESOPHAGITIS SNOMED Code(s): 717534235 Comment: Continue Omeprazole. Famotidine held. (4) HTN (hypertension) Current Visit: No Status: Acute Code(s): I10 - ESSENTIAL (PRIMARY) HYPERTENSION SNOMED Code(s): 44692794 Comment: Continue Losartan and Amlodipine for now. Has been on Atenolol in the past. (5) Hyponatremia Current Visit: Yes Status: Acute Code(s): E87.1 - HYPO-OSMOLALITY AND HYPONATREMIA SNOMED Code(s): 19561215 Comment: Stable. [facility] 11/20. (6) Tachycardia Current Visit: Yes Status: Acute Code(s): R00.0 - TACHYCARDIA, UNSPECIFIED SNOMED Code(s): 1600249 Comment: Asymptomatic. HR in narrow range throughout the day. Status and Disposition: Inpatient for CVA work-up
--- NOTE | 2016-11-19 14:49 | PN ---
Progress Note - Progress Note Date of Service: 11/19/16 Note: Urine growing 50-75K E. faecalis. This could be contributing to her functional decline. Amoxicillin ordered, plan 5 day course. Also pelvic X-ray as pt appeared to be in pain with getting up.
--- NOTE | 2016-11-19 16:45 | EEG ---
ELECTROENCEPHALOGRAPHY: DATE OF PROCEDURE: 11/19/16 DATE OF DICTATION: 11/19/16 PATIENT OF: Dr. Luu. HISTORY: This is an 86-year-old woman who is being evaluated for an aphasic episode with past medical history including Alzheimer's. The study was done to evaluate for possible seizures. MEDICATIONS: Include: 1. Prilosec. 2. Norvasc. 3. Aspirin. 4. Lipitor. 5. Os-Perry. 6. Cozaar. 7. Dulera. 8. Zoloft. 9. Aricept. 10. Ventolin. 11. Clotrimazole. INTERPRETATION: With the patient awake, background cerebral activity consists of moderate amplitude posterior dominant 7 Hz to 8 Hz rhythm with admixed slowing into the slow theta range. No epileptiform potentials, focal abnormalities, or major asymmetries of background are noted. The patient never falls asleep. IMPRESSION: This awake EEG is abnormal for slowing of background, some of which may be secondary to age, but the degree of slowing is consistent with an encephalopathy in addition to age related changes. The findings on EEG are not specific as to type of encephalopathy, but something like Alzheimer's can cause this slowing. [id number]/[facility] #: [id number] [facility]
[2016-11-19] MEDS: Amoxicillin/Clavulanate TAB* 500 MG PO SCH ×2 (17:05→21:20)
--- NOTE | 2016-11-19 17:58 | CONS ---
CC: Jody Lopez MD; Valentin Camacho MD * PALLIATIVE CARE CONSULTATION: DATE OF CONSULT: 11/19/16 PRIMARY CARE PHYSICIAN: Jody Lopez MD REFERRING PHYSICIAN: Valentin Camacho MD HOSPITAL COURSE: This is an 86-year-old female with a past medical history of nogmmclz-uu-vbbqdc dementia, anxiety, and hypertension, who presented to the emergency room on 11/16/16 for concern for neurologic symptoms. According to the H and P, there was concern that the patient was noted to have the facial droop and with aphasia about 30 minutes prior to arrival to the emergency room. Due to the patient's dementia, she is not able to specify any history on my encounter. The patient is able to tell me her name, otherwise unable to have a meaningful conversation with her. On admission, the patient had a head CT and a head CTA that showed no acute findings. Her head CTA showed moderate degree of bilateral stenosis in the proximal internal carotid arteries. Her additional workup included a neurology consult, who felt the MRI would be too traumatic for her in the setting of her severe anxiety and dementia. She does have a positive urine culture, which could just be asymptomatic bacteriuria; however, in the setting of her presentation it is not unreasonable to treat. I did speak with Danna regarding her baseline at home, they state that she ambulates independently with a walker, she has been eating well. She gets overwhelmed with more people in that she can have a meaningful conversation one- on-one with staff that she is familiar with. The staff at [facility] states that she does not do well out of her own environment, that she becomes nonverbal and will not really eat or drink very much at all. They also state that she did have a fall about a week and a half ago and she went to the emergency room on 11/07/16 and had a workup there that was unremarkable. Here, PT did see her and felt that she was a max 2 assist and the patient was complaining of pain of her hips and knees. The [facility] states that they are willing to take her back as they feel that she would not do well in a different environment such as subacute rehab and they feel that she would get better if she were back in her own environment. I did try to reach out to her son, who is her healthcare proxy in [place], but there was no answer at his number. Otherwise, unable to obtain review of systems due to the patient's dementia. PAST MEDICAL HISTORY: 1. Atgssybl-qv-dmrwoh dementia. 2. Hypertension. 3. GERD. 4. Chronic anemia. 5. Osteoarthritis. 6. Anxiety. 7. Hyperlipidemia. 8. Asthma. 9. Admission for colitis in July 2016. 10. Recent fall in October 2016. INPATIENT MEDICATIONS: 1. Tylenol 650 mg every 4 hours as needed. 2. Albuterol 2 puffs inhaled every 6 hours as needed. 3. Aspirin 81 mg p.o. daily. 4. Atorvastatin 10 mg daily. 5. Calcium 1 tab daily. 6. Clotrimazole topical daily. 7. Donepezil 5 mg at bedtime. 8. Losartan 50 mg daily. 9. Mometasone/formoterol 2 puffs inhale b.i.d. 10. Multivitamin. 11. Omeprazole 20 mg daily. 12. Sertraline 25 mg daily. 13. Amlodipine 5 mg daily. ALLERGIES: No known drug allergies. FAMILY HISTORY: Unable to obtain. SOCIAL HISTORY: As mentioned, the patient lives at [facility]. At baseline, she ambulates with a walker. She has been eating well and having some meaningful interactions, one-on-one with familiar staff at [facility]. Her healthcare proxy is her son, Mykel Wilson. His phone number is [phone]. 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 She has a MOLST, is a DNR. REVIEW OF SYSTEMS: Unable to obtain due to the patient's dementia. PHYSICAL EXAMINATION: Vitals: Temp 99.9, pulse rate 105, respiratory rate 16, oxygen saturation 94% on room air, blood pressure 150/75. General: No acute distress and resting comfortably. HEENT: Head normocephalic. Eyes: Pupils equal and reactive. Anicteric. Oropharynx: Mucous membranes are moist. Neck : Supple. No lymphadenopathy. Cardiac: Regular rate and rhythm. Soft systolic murmur heard throughout. Respiratory: Diminished breath sounds. No wheezing, rhonchi, or rales. Abdomen: Soft, nontender, nondistended. Extremities: No clubbing, cyanosis, or edema, +1 DPs. Subtle shortened left lower extremity. Neurologic: Alert and oriented x1. Oriented to self only. Her upper extremity strength 4/5. Lower extremity strength about 1/5. No gross neurological deficits. DIAGNOSTIC STUDIES/LAB DATA: White count 7.4, hemoglobin 11, hematocrit 33, platelets 244,000. INR 0.89. Sodium 130, potassium 3.7, chloride 98, bicarb 24 , BUN 19, creatinine 0.97, glucose 107, albumin is 3.9. Urine shows normal larissa and Enterococcus faecalis, pansensitive. ASSESSMENT: This is an 86-year-old female with past medical history of moderate -to- severe dementia and anxiety, who presented to the emergency room with concern for neurologic symptoms. The patient was seen by Neurology and recommended starting her on aspirin. No indication for MRI in the setting of her dementia and anxiety as this will be more traumatic than it would be beneficial under these circumstances. I did speak with Danna and they are comfortable bringing her back, as they feel that she does well in her own environment. I discussed with Dr. Camacho about recommending treatment for her urinary tract infection and imaging of her pelvis with her 2 max assists here and her recent fall to make sure there is no fracture. At this time, she is not eligible for hospice. I would see how she does back in her own environment. If she continues to do poorly and not eating with weight loss, with worsening dementia, then I would have her referred to [facility] for hospice services and I relayed my recommendation to Danna as well. I recommend when the son is being able to be reached to completing the MOLST form on the second page. Thank you for this consultation. I will follow along with you. TIME SPENT: Greater than 90 minutes was spent doing the consultation, more than half time was spent in direct patient contact. [id number]/[facility] #: [id number] [place]
--- NOTE | 2016-11-19 18:17 | RAD ---
Indication: Pain with standing post fall. Comparison: August 02, 2016 CT. Technique: AP pelvis. Pain limits positioning. Report: The hips appear normally located based on the AP and shallow oblique projections. No conspicuous proximal femur or pelvic fracture or pelvic joint diastases. Unremarkable soft tissue contours. IMPRESSION: No radiographic evidence for hip fracture based on the limited radiographic views obtained. As x-rays may be negative with nondisplaced hip fracture if there is persistent clinical concern MRI or in setting of contraindication to MRI or limitation in emergent access to MRI CT would be suggested.
[2016-11-19] MEDS: Donepezil TAB* 5 MG PO SCH (21:20)
[2016-11-20 05:53] LABS: BUN/Creatinine Ratio 21.2 (8-20); Calcium 8.6 mg/dL (8.6-10.3); EGFR African American 81.7 (>60); EGFR Non-African American 63.6 (>60); Potassium 3.4 mmol/L (3.5-5.0)
[2016-11-20 08:48] VITALS: BP 152/62
[2016-11-20] MEDS: Multivitamins/Minerals TAB PO SCH (09:52)
[2016-11-20] MEDS: Aspirin EC Low Dose* 81 MG TAB.EC PO SCH (09:52)
[2016-11-20] MEDS: Sertraline* 25 MG TAB PO SCH (09:52)
[2016-11-20] MEDS: Calcium/Vitamin D TAB 250/125* TAB PO SCH (09:52)
[2016-11-20] MEDS: Losartan TAB* 25 MG PO SCH (09:52)
[2016-11-20] MEDS: Atorvastatin* 10 MG TAB PO SCH (09:52)
[2016-11-20] MEDS: Amoxicillin/Clavulanate TAB* 500 MG PO SCH (09:52)
[2016-11-20] MEDS: amLODIPine TAB* 5 MG PO SCH (09:53)
[2016-11-20] MEDS: Omeprazole CAP* 20 MG PO SCH (09:53)
[2016-11-20] MEDS: Clotrimazole 1% CREAM* 45 GM TOPICAL SCH (10:05)
--- NOTE | 2016-11-20 10:10 | PN ---
Progress Note - Progress Note Date of Service: 11/20/16 Note: Time spent on discharge 50 minutes.
[2016-11-20] MEDS: Mometasone/Formoter 200/5 MDI INH SCH (11:59)
--- NOTE | 2016-11-20 16:11 | DS ---
CC: Dr. Lopez DISCHARGE SUMMARY: DATE OF ADMISSION: DATE OF DISCHARGE: 11/20/16 HISTORY: This 86-year-old woman was referred because of facial droop and aphasia. She is a resident of [facility]. She has had dementia for some time. By the time she arrived to the hospital, the facial droop resolved. I am not really sure to what degree she has or had aphasia. I think she likes talking to possibly s ome of the other staff rather than me possibly she prefers talking to women or just varies with time of day as who she would talk to. It was very difficult to elicit answers from her. Her speech is very sparse. She had almost no fund of knowledge and was quite disoriented. She was monitored on the telemetry unit. She had a head CTA, brain CT and EEG. There was slowing on EEG. There were no specific finding. There were no acute findings on the other two studies. She seems to be adequately hydrated herself and eats probably an adequate amount. Her vital signs and l aboratory data showed no significant changes from before. Her MCV is 79. Her hematocrit is 33. Leoncio lindsay has not had iron studies. I am not sure if she has iron-deficiency or thalassemia minor. Sodium was 132 on the day of discharge. This is in the range of her previous values. Urine culture grew out Enterococcus faecalis, which was sensitive to ampicillin as well as all antibiotics tested with the exception of tetracycline and quinupristin. She was started on amoxicillin clavulanate and will finish with amoxicillin for 4 more days at home. FINAL DIAGNOSES: 1. Transient ischemic attack. 2. Dementia. 3. Gastroesophageal reflux disease. 4. Hypertension. 5. Hyponatremia. 6. Tachycardia. 7. Urinary tract infection. DISCHARGE MEDICATIONS: 1. Aspirin 81 mg daily. 2. Sertraline 25 mg daily, to stop after 15 days. 3. Amoxicillin 500 mg t.i.d. for 4 days. 4. Atorvastatin 10 mg daily. 5. Clotrimazole 1% cream daily. 6. Albuterol inhaler one puff b.i.d. 7. Acetaminophen 650 mg every 4 hours p.r.n. 8. Multivitamin with minerals as prescribed. 9. Fluticasone salmeterol 230/21 two puffs b.i.d. 10. Pantoprazole 40 mg daily. 11. Emollient at bedtime p.r.n. 12. Losartan 50 mg daily. 13. Famotidine 40 mg h.s. 14. Donepezil 5 mg h.s. 15. Calcium with vitamin D one tab daily. 16. Amlodipine 5 mg daily. 17. PreserVision 2 caps b.i.d. [id number]/[facility] #: [id number]
== END 2016-11-20 12:58 | disposition home or self-care (01) | DRG 69 ==
LOC: ED 14:07 → INTOOBSV 16:08 → MEDTELE 16:08 → OBSVTOIN 16:08 → MEDTELE 11-20 12:02
PROVIDERS: ADMIT Internal Medicine; ATTEND Internal Medicine
PROC: 4A00X4Z Measurement of Central Nervous Electrical Activity, External Approach (ICD-10-PCS; principal; 2016-11-19)
DX: G45.9 Transient cerebral ischemic attack, unspecified (principal); E87.1 Hypo-osmolality and hyponatremia; N39.0 Urinary tract infection, site not specified; G30.9 Alzheimer's disease, unspecified; F02.80 Dementia in other diseases classified elsewhere, unspecified severity, without behavioral disturbance, psychotic disturbance, mood disturbance, and anxiety; I47.1 Supraventricular tachycardia; K21.9 Gastro-esophageal reflux disease without esophagitis; I10 Essential (primary) hypertension; R29.701 NIHSS score 1; I65.23 Occlusion and stenosis of bilateral carotid arteries; Z66 Do not resuscitate; B95.2 Enterococcus as the cause of diseases classified elsewhere; D64.9 Anemia, unspecified; M19.90 Unspecified osteoarthritis, unspecified site; F41.9 Anxiety disorder, unspecified; E78.5 Hyperlipidemia, unspecified; J45.909 Unspecified asthma, uncomplicated; E87.6 Hypokalemia; Z72.89 Other problems related to lifestyle; Z79.82 Long term (current) use of aspirin; Z82.49 Family history of ischemic heart disease and other diseases of the circulatory system; Z98.49 Cataract extraction status, unspecified eye; Z87.891 Personal history of nicotine dependence
CPT/HCPCS: 36415; 70450; 70496; 70498; 71010; 72170; 80048; 80053; 80061; 81003; 81015; 83036; 83605; 83930; 84484; 85025; 85610; 87077; 87086; 87186; 93005; 93306; 94640; 94760; 95819; A9270-GY; Q9967

== ENCOUNTER 2017-02-05 12:37 | Emergency (ER) | payer MEDICARE, OTHER ==
[2017-02-05 12:52] VITALS: BP 151/80
--- NOTE | 2017-02-05 13:46 | ED ---
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 Patient does not remember what she cut her hand on. Does have dementia. Patient did not fall or injure anything else. Wound is wrapped upon arrival, bleeding oozing and controlled. Not on blood thinners. Denies any pain with moving fingers and hands. No medication for injury. Is right handed. Patient does have dementia, limited history. - History of Current Complaint Chief Complaint: EDExtremityUpper Time Seen by Provider: 02/05/17 12:56 Stated Complaint: RIGHT HAND LAX Hx Obtained From: Patient, Family/Nurse Head - nursing staff, at facility, EMS Hx Last Menstrual Period: postmenopausal Onset/Duration: Started Hours Ago, Traumatic Skin Exposure Onset/Duration: Hours Ago Timing: Constant Onset Severity: Mild Current Severity: Mild Pain Intensity: 1 Pain Scale Used: 0-10 Numeric Skin Location: Hand - dorsal right Aggravating Symptom(s): Nothing Alleviating Symptom(s): Nothing Related History: Trauma - Additional Pertinent History Primary Care Physician: [id number] - Allergy/Home Medications Allergies/Adverse Reactions: Allergies Allergy/AdvReac Type Severity Reaction Status Date / Time No Known Allergies Allergy Verified 08/02/16 17:16 Home Medications: Home Medications Multiple Vitamins W/ Minerals [Preservision Areds 2 + Mu] 2 cap PO BID 02/05/17 [History Confirmed 02/05/17] Sertraline* [Zoloft*] 50 mg PO DAILY 02/05/17 [History Confirmed 02/05/17] PMH/Surg Hx/FS Hx/Imm Hx Endocrine/Hematology History: Reports: Hx Thyroid Disease, Hx Anemia Denies: Hx Anticoagulant Therapy, Hx Blood Disorders, Hx Blood Transfusions, Hx Bone Marrow Disease, Hx Sickle Cell Disease Cardiovascular History: Reports: Hx Hypercholesterolemia, Hx Hypertension Respiratory History: Reports: Hx Asthma GI History: Reports: Hx Gastroesophageal Reflux Disease Musculoskeletal History: Reports: Hx Arthritis Sensory History: Reports: Hx Contacts or Glasses Denies: Hx Hearing Aid Opthamlomology History: Reports: Hx Contacts or Glasses Neurological History: Reports: Hx Dementia - Alzheimer's Denies: Hx Developmental Delay Psychiatric History: Reports: Hx Anxiety - Surgical History Surgery Procedure, Year, and Place: cataracts Hx Anesthesia Reactions: - UNSURE - Immunization History Immunizations Up to Date: Yes Infectious Disease History: No Infectious Disease History: Reports: Hx Shingles - treated Denies: Traveled Outside the [place] in Last 30 Days - Family History Known Family History: Positive: Hypertension Negative: Cardiac Disease, Diabetes - Social History Alcohol Use: Occasionally Alcohol Amount: 1 x week Hx Substance Use: No Substance Use Type: Reports: None Hx Tobacco Use: No Smoking Status (MU): Never Smoked Tobacco Review of Systems Constitutional: Negative Cardiovascular: Negative Respiratory: Negative Musculoskeletal: Negative Positive: Other - 5.5cm linear laceration All Other Systems Reviewed And Are Negative: Yes Physical Exam Triage Information Reviewed: Yes Vital Signs On Initial Exam: Initial Vitals Temp Pulse Resp BP Pulse Ox 97.6 F 94 16 151/80 99 02/05/17 12:48 02/05/17 12:48 02/05/17 12:48 02/05/17 12:48 02/05/17 12:48 Vital Signs Reviewed: Yes Completion Of Physical Exam Limited Due To: Dementia Appearance: Positive: Well-Appearing, No Pain Distress, Well-Nourished Skin: Positive: Warm, Skin Color Reflects Adequate Perfusion, Dry, Other - 5.5cm laceration linear/skin tear, superficial to dorsum of right hand, controlled bleeding without FB, no tendon or muscle involvement. some ecchymosis surrounding skin avulsed area. Negative: Cold, Numb, Cyanosis @, Mass @, Erythema @ Head/Face: Positive: Normal Head/Face Inspection Eyes: Positive: Conjunctiva Clear ENT: Positive: Hearing grossly normal Neck: Positive: Supple, Nontender Respiratory/Lung Sounds: Positive: Clear to Auscultation, Breath Sounds Present. Negative: Rales, Rhonchi, Wheezes Cardiovascular: Positive: Normal, RRR, Pulses are Symmetrical in both Upper and Lower Extremities - 2+ radial b/l Musculoskeletal: Positive: Normal, Strength/ROM Intact. Negative: Limited @, Interruption @, Abnormal @, Pain @, Edema Left, Edema Right Neurological: Positive: Normal, Sensory/Motor Intact - Everett Coma Scale Coma Scale Total: 15 Procedures - Laceration/Wound Repair 1 Location: Other - right dorsum hand Description: Linear - skin tear/avulsion Length, Depth and Shape: 5.5cm linear, superficial skin tear/avulsion dorsum right hand Betadine Prep?: No Irrigated w/ Saline (ccs): 500 Laceration/Wound Explored: clean, no foreign body removed Closure: Skin Adhesive, SteriStrips - 6 Sterile Dressing Applied?: Yes - telfa, kerlex, coban Diagnostics - Vital Signs Vital Signs Temp Pulse Resp BP Pulse Ox 02/05/17 12:48 97.6 F 94 16 151/80 99 - Laboratory Lab Statement: Any lab studies that have been ordered have been reviewed, and results considered in the medical decision making process. Course/Dx - Course Course Of Treatment: skin tear/avulsion was closed with skin adhesive and 6 steri strips without complication after thorough irrigation. Patient tolerated procedure well. Dressed with kerlex, telfa and coban. Bleeding controlled. No other injuries. Not on blood thinners. No loss of ROM. Normal PE findings otherwise. Keep clean and dry. Instructions written on d/c due to patient's dementia history. No concern for other injuries at this time. Follow up for re- check and redress with pcp. - Differential Diagnoses - Skin Complaint Differential Diagnoses: Other - skin tear, skin avulsion, laceration, abrasion - Diagnoses Provider Diagnoses: Skin tear of right hand without complication, Avulsion of skin of right hand Discharge - Discharge Plan Condition: Stable Disposition: HOME Patient Education Materials: Skin Adhesive Care (ED), Steristrips (ED), Skin Avulsion (ED) Referrals: Jody Lopez MD [Primary Care Provider] - Additional Instructions: Keep hand dry, do not get wet for 24-48 hours. Keep clean. Change dressing after 48 hours. Apply triple antibiotic once steri strips fall off. Do not take steri-strips off, let them fall off on own. Any new or worsening symptoms (such as infection) please seek medical attention. Follow up with pcp for recheck.
== END 2017-02-05 15:55 | disposition home or self-care (01) ==
LOC: ED 12:37
DX: S61.411A Laceration without foreign body of right hand, initial encounter (principal); X58.XXXA Exposure to other specified factors, initial encounter; Y93.9 Activity, unspecified; Y92.9 Unspecified place or not applicable; Y99.9 Unspecified external cause status
CPT/HCPCS: 99282

== ENCOUNTER 2017-04-08 08:58 | Inpatient (IN) | payer MEDICARE, OTHER ==
[2017-04-08 09:20] LABS: ABS Basophils 0.1 10^3/ul (0-0.2); ABS Eosinophils 0.3 10^3/ul (0-0.6); ABS Lymphocytes 1.7 10^3/ul (1.0-4.8); ABS Monocytes 1.2 10^3/ul (0-0.8); ABS Neutrophils 9.1 10^3/ul (1.5-7.7); ABS Nucleated RBC 0 10^3/ul; Eosinophil % 2.1 % (0-6); Hematocrit 34 % (35-47); Hemoglobin 11.1 g/dl (12.0-16.0); Mean Corpuscular HGB Conc 33 g/dl (31-36); Mean Corpuscular Hemoglobin 26 pg (27-31); Mean Corpuscular Volume 79 fL (80-97); Mean Platelet Volume 8 um3 (7.4-10.4); Nucleated Red Blood Cells % 0; Platelet Count 315 10^3/ul (150-450); Red Blood Count 4.31 10^6/ul (4.0-5.4); Red Cell Distribution Width 15 % (10.5-15); White Blood Count 12.4 10^3/ul (3.5-10.8)
[2017-04-08 09:34] LABS: EGFR Non-African American 47.7 (>60)
[2017-04-08 09:35] LABS: INR 0.9 (0.77-1.02)
--- NOTE | 2017-04-08 09:41 | RAD ---
Indication: LEFT side weakness upon awakening today. Code baires. Comparison: November 16, 2016 Technique: Noncontrast CT vertex of skull through foramen magnum. Report: Mild to moderate prominence of the cerebral sulci and ventricles reflecting involutional change. Patent basal cisterns. Decreased density in the periventricular and subcortical white matter while non-specific is most likely due to chronic microangiopathy. Negative for baires matter white matter obscuration, intra or extra-axial hemorrhage, or mass effect. 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 Negative for fracture or suspicious lesion of the calvarium or skull base. Grossly clear paranasal sinuses and mastoid air spaces. Unremarkable orbital contents. IMPRESSION: 1. Involutional change and stigmata of chronic small vessel ischemic disease. 2. Negative for intracranial hemorrhage or compelling CT stigmata of ischemic stroke.
[2017-04-08] MEDS ORDERED: Aspirin SUPP* 300 MG PR ONE (10:54)
[2017-04-08] MEDS ORDERED: Ondansetron INJ* 2 MG/ML VIAL IV PRN (11:20)
[2017-04-08] MEDS ORDERED: Acetaminophen SUPP* 650 MG SUPP PR PRN (11:20)
[2017-04-08] MEDS ORDERED: hydrALAZINE IV* 20 MG/ML VIAL IV SLOW PU PRN ×2 (11:23→11:26)
[2017-04-08] MEDS ORDERED: Albuterol 2.5 MG/3 ML NEB.SOL* (0.083%) INH PRN (11:24)
[2017-04-08] MEDS ORDERED: Pantoprazole IV* 40 MG IV SCH (12:00)
[2017-04-08 12:04] LABS: Urine Appearance Clear; Urine Blood Negative (Negative); Urine Color Yellow; Urine Ketones Trace (Negative); Urine Protein Negative (Negative); Urine Specific Gravity 1.009 (1.010-1.030); Urine Urobilinogen Negative (Negative)
--- NOTE | 2017-04-08 12:07 | RAD ---
INDICATION: Tachycardia. COMPARISON: Comparison is made with a prior study from November 16, 2016. TECHNIQUE: A portable view of the chest was obtained. FINDINGS: The heart appears mildly enlarged and unchanged from the prior exam. Note is made of mitral annular calcification. The lungs are hyperinflated and clear. No pleural effusion is seen. IMPRESSION: MILD CARDIOMEGALY, UNCHANGED, NO EVIDENCE FOR ACUTE FINDING.
--- NOTE | 2017-04-08 12:39 | RAD ---
INDICATION: Question CVA or TIA. COMPARISON: November 16, 2016 CT angiogram. TECHNIQUE: Bilateral carotid duplex scan. Stenosis estimations reflect velocity criteria that have been correlated to angiographic stenosis calculations based on distal internal carotid diameter. REPORT: Image quality limited due to poor tolerance for exam and persistent neck turned to the RIGHT position. RIGHT ICA: 69 cm/s peak systolic 10 cm/s end diastolic CCA: 39 cm/s peak systolic ICA/CCA peak systolic ratio: 1.79 Moderate calcific plaque at the RIGHT carotid bulb and proximal internal carotid artery. Low resistance RIGHT internal carotid artery waveform. Antegrade flow documented at the RIGHT vertebral artery. LEFT ICA: 45 cm/s peak systolic 9 cm/s end diastolic CCA: 51 cm/s peak systolic ICA/CCA peak systolic ratio: 0.88 Minimal calcific and noncalcific the LEFT carotid bulb and proximal internal carotid artery. Low resistance LEFT internal carotid artery waveforms with spectral broadening. The LEFT vertebral artery could not be visualized with positioning limiting assessment. IMPRESSION: Limited carotid ultrasound due to poor tolerance for exam and patient positioning. Nonetheless the constellation of findings is consistent with less than 50% bilateral internal carotid artery stenosis. CPT II Codes: 3100F
[2017-04-08] MEDS: NS 0.9% 1000 ML* 1,000 ML IV SCH (13:20)
--- NOTE | 2017-04-08 13:54 | PN ---
Hospitalist Progress Note Date of Service: 04/08/17 called by RN as patient coughed up brown sputum. Will send for cx noted low grade fever. Will add on abx, and legionella and S. pneunomia antigens,
[2017-04-08] MEDS: Heparin VIAL(*) 5000 UNITS/ML VIAL (FIVE THOUSAND) SUBCUT SCH ×2 (14:00→23:31)
[2017-04-08] MEDS: cefTRIAXone VIAL(*) 1,000 MG in NS 0.9% 50 ML* 50 ML IVPB SCH (14:19)
[2017-04-08] MEDS ORDERED: LORazepam INJ* 2 MG/ML 1 ML VIAL IV PUSH ONE ×2 (14:41→19:17)
[2017-04-08] MEDS: Azithromycin IV(*) 500 MG in NS 0.9% 250 ML* 250 ML IVPB SCH (15:07)
[2017-04-08] MEDS ORDERED: Haloperidol INJ IV/IM* 5 MG/ML AMP IV SLOW PU PRN (16:01)
--- NOTE | 2017-04-08 19:33 | HP ---
CC: Dr. Santiago; Dr. Lopez * HISTORY AND PHYSICAL: DATE OF ADMISSION: 04/08/17 PRIMARY CARE PROVIDER: According to the records, Dr. Lopez. The patient is unable to tell me. ATTENDING PHYSICIAN WHILE IN THE HOSPITAL: Vashti Boone MD * (report dictated by Osbaldo Brown NP) CONSULTING NEUROLOGIST: Dr. Santiago. CHIEF COMPLAINT: Stroke-like symptoms. HISTORY OF PRESENT ILLNESS: I would like to preface the report by saying the patient has a significant amount of underlying dementia. She is really unable to give much history at this point. According to [facility] notes, the patient was last seen normal last night. She was at her baseline. Again, she has underlying dementia, and at baseline is confused. Apparently, last night, she went to bed around 10 o'clock, woke up this morning, it was noted by nursing staff at [facility] that she had a deviation of her gaze to the right and she was having left- sided weakness. There was concern that she may have had a stroke at some point and she was sent to the hospital. There has been no report of change in medications. The nursing staff here in the ED have noted that she has been significantly weak on her left side and she has been more disoriented. There has been no reports of nausea, vomiting, or diarrhea per notes. No reports of fevers or chills. Because of these focal deficits, she came in to the ED and was evaluated. There was concern for stroke and we were asked to evaluate for admission. PAST MEDICAL HISTORY: According to old records include: 1. Hypertension. 2. GERD. 3. Anemia. 4. Arthritis. 5. Anxiety. 6. Dementia. 7. Hyperlipidemia. 8. Asthma. PAST SURGICAL HISTORY: Unable to be obtained. MEDICATIONS: The home meds include: 1. Albuterol 1 puff inhaled b.i.d. 2. Tylenol 650 mg p.o. every 4 hours as needed. 3. Tylenol ER 650 mg p.o. b.i.d. 4. Zoloft 50 mg daily. 5. Multivitamin 2 capsules p.o. daily. 6. Advair HFA 2 puffs inhaled b.i.d. 7. Protonix 40 mg daily. 8. Multivitamin 1 tablet daily. 9. Laveaderm 1 application topically at bedtime as needed. 10. Pepcid 40 mg daily. 11. Aricept 5 mg at bedtime. 12. Calcium with vitamin D 1 tablet p.o. daily. 13. Lipitor 10 mg daily. 14. Amlodipine 5 mg daily. ALLERGIES TO MEDICATIONS: Include no known drug allergies. FAMILY HISTORY: Unable to be obtained. SOCIAL HISTORY: She resides at [facility]. I am unaware of her smoking or tobacco use history and unaware of her alcohol use history. Her surrogate decision maker is her son, Mykel. I did leave a message with him. His cell phone# is [phone], I left a message with him to get more information. REVIEW OF SYSTEMS: Unable to be obtained from the patient. PHYSICAL EXAMINATION GENERAL: At this time, Mrs. Wilson is an 86-year-old female patient. She is sitting in the ED stretcher. She does not appear to be in any acute distress. She certainly does appear to be confused and does appear to be disoriented. VITAL SIGNS: Blood pressure was noted to be when she came in 163/108, pulse 99 , respirations were 18, her O2 sat was 100%, temperature was 98.7. HEENT: Head: Atraumatic. Eyes: Sclerae anicteric. Pupils reactive to light. Throat: Oral mucosa appears to be dry. No oropharyngeal erythema. NECK: Supple. LUNGS: Clear to auscultation bilaterally. HEART: Sounds S1, S2. Regular rate and rhythm. She is tachycardic. ABDOMEN: Soft, flat, and nontender. Bowel sounds are present. EXTREMITIES: She is having difficulty moving her left side. She is moving the right side with 5/5 strength. There is no peripheral edema. NEUROLOGIC: She is oriented to herself only. She is calling out. She is saying nonsensical words. She does appear to have a deviated gaze to the right side. She is really unable to lift the left arm or lift the left lower extremity. Detailed neuro exam is difficult to obtain because of underlying dementia. She is not really following appropriate commands. No other gross focal deficits were noted. SKIN: Intact. LABORATORY DATA/DIAGNOSTIC STUDIES: Labs revealed a WBC of 12.4, RBC of 4.31, hemoglobin 11.1, hematocrit of 34, platelet count of 315. INR was 0.90. PTT of 32.2. Her sodium is 134, potassium 3.6, chloride of 98, bicarb 22, her BUN was 19, creatinine 1.09 which is a little up from her baseline, her glucose was 110. Lactate 3.3. Calcium 10.0. Total bili 0.6, AST 21, ALT 12, alk phos 164. Troponin 0.01. Albumin of 4.0. Urine is pending. She did have a brain CT obtained today, which revealed involutional change, stigmata of chronic small vessel ischemic change, negative for intracranial hemorrhage, and compelling CT stigmata of ischemic stroke. She did have an EKG obtained today, which shows a normal sinus rhythm and PAC, she does have heart rate of 99, no ST elevation, she did have some depression in V5 and 6. I reviewed it from an EKG in November of last year, it appears to be similar. Old medical records were reviewed. She did have a CTA of the head and neck done at the last hospitalization, which showed moderate grade bilateral stenosis of proximal internal carotid, it is 50% on the left, 60% on the right. Old medical records were reviewed. ASSESSMENT AND PLAN: Ms. Wilson is an 86-year-old female patient with severe dementia coming into the ED today with complaints of right deviated gaze, in addition to this, left-sided weakness. We were asked to evaluate for admission. She will be admitted under observation status for: 1. Possible cerebrovascular accident. At this point, she was given aspirin p.r. She is n.p.o. because I am concerned of her swallowing ability. I will have speech evaluate her, PT evaluate her. Dr. Santiago will evaluate her. I would like to keep the systolics less than 200 and the diastolics less than 110. I have ordered p.r.n. hydralazine. With the bilateral carotid artery stenosis, I want to let the blood pressure on the high side and we will continue to follow. We will get lipid panel, A1c, MRI, carotid ultrasounds, echo with bubble study and place the patient on telemetry and we will follow her and I do have call placed out to the son. 2. Leukocytosis with tachycardia. Again, question if there is underlying infection here. She is tachycardic particularly when she appears to be agitated with any type of procedures being performed. The nursing staff just tried to put a suppository in for the aspirin and her heart rate went into the 120s. She does appear to be a little bit dehydrated. I would like to eisenberg culture here, hydrate her, repeat her lactate, check her for flu, check her for urine. I will get a chest x-ray just to make sure there is no underlying infection that may be certainly contributing to her overall mentation. 3. Hypertension. Again, we will allow for permissive hypertension. 4. Gastroesophageal reflux disease. I have ordered PPI therapy IV. 5. Anemia. Her H and H is stable. 6. Anxiety, dementia. Continue supportive care. 7. Hyperlipidemia. When able, we will start her back on statin. 8. Asthma. I have ordered p.r.n. nebs and continued her home inhalers. 9. Arthritis. Continue supportive care. 10. DVT prophylaxis: She was placed on heparin subcu. 11. Code status: She does have a nonhospital DNR. I will clarify this later with her son. 12. Fluids, electrolytes, and nutrition. She is n.p.o. I will order normal saline at 100 an hour. TIME SPENT: Time spent on the admission was 60 minutes, greater than half the time spent [id number] with the patient obtaining my history and physical, the other half time was spent going over the plan of care with the patient and implementing plan of care. I did discuss the plan of care with my attending, Dr. Boone; she is in agreement. OSBALDO BROWN NP [id number]/[facility] #: [id number] [place]
[2017-04-08] MEDS: Mometasone/Formoter 200/5 MDI INH SCH (19:37)
[2017-04-08] MEDS: Albuterol HFA INHALER* 8 gm MDI INH SCH (19:37)
[2017-04-08] MEDS ORDERED: NS 0.9% 500 ML* 500 ML IV ONE (20:18)
--- NOTE | 2017-04-08 21:48 | CONS ---
CONSULTATION REPORT: DATE OF CONSULT/DICTATION: 04/08/17 PATIENT OF: Dr. Lopez and Osbaldo Brown NP REASON FOR CONSULT: I am asked to evaluate for possible stroke. HISTORY OF PRESENT ILLNESS: This is an 86, almost 87-year-old woman with significant dementia, who presents with right gaze preference and decreased strength on the left side. History is limited. There is no ER note or admission note on the chart at this point. Apparently, she was in her usual state of health yesterday according to Dr. Parra and woke up with left-sided weakness and right gaze preference. She is said to have moderately severe dementia and she has had a history of carotid stenosis. She was admitted last year in December of 2016 with facial droop and aphasia with symptoms resolving. She has a history of hypertension, GERD, chronic anemia, osteoarthritis, anxiety , dementia which is labeled as Alzheimer's type, hyperlipidemia, asthma, history of colitis. MEDICATIONS: Include at home: 1. Norvasc 5 mg daily. 2. Lipitor 10 mg daily. 3. Calcium carbonate plus vitamin D 1 tab daily. 4. Aricept 5 mg at bedtime. 5. Pepcid 40 mg at bedtime. 6. MultiVites. 7. Protonix 40 mg daily. 8. Advair 2 puffs b.i.d. 9. Zoloft 50 mg daily. 10. Albuterol 1 puff b.i.d. She is not labeled as being on aspirin at home. ALLERGIES: She has no known drug allergies. FAMILY HISTORY: Not known. 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 Her son in [place] has been contacted. She does not smoke, drink, or use drugs. REVIEW OF SYSTEMS: Unobtainable. PHYSICAL EXAM: Temperature 100.1 and she has had sputum, pulse 93, respirations 24, blood pressure 181/108. She was awake with right gaze preference and did not fix or follow. She did not speak and did not follow commands. She had some left facial weakness and she had slightly labored breathing. Motor exam: She was uncooperative with yet increased tone diffusely. She tended to hold her right arm up and I lifted it and her left would drop off relatively quickly to the bed, the same for both legs. Toes were equivocal on the right, upgoing on the left. Reflexes were 2 and equal. Chest: Clear. Cardiovascular: Regular rate and rhythm. Abdomen: Soft with positive bowel sounds. DIAGNOSTIC STUDIES/LAB DATA: I reviewed her brain CT scan, it did show diffuse severe atrophy and small vessel ischemic disease that is quite prominent. Her carotid Doppler was limited due to lack of cooperation but showed less than 50% stenosis bilaterally. Labs included white count of 12.4, hematocrit of 34. Normal INR and PTT. CMP: Abnormal for chloride of 98, creatinine 1.09, lactic acid 3.3, globulin 4.1, LDL was 46. UA was negative. Influenza A and B were negative. IMPRESSION AND PLAN: Osbaldo Brown NP, spoke to the son in [place], who as per Osbaldo Brown NP, did not want any surgery or aggressive procedures, but wanted her treated medically for now. Tierra most likely had a new stroke with right gaze preference and new left- sided weakness. This can be a frontal or frontotemporal stroke and her prognosis is guarded especially given her underlying dementia, although she could have a component of Alzheimer's with the extent of her white matter disease on CAT scan. She is likely to have a component of vascular dementia as well. I will reach out to the son, but I think the treatment options are limited. She would most likely not be a good anticoagulation candidate even if she had atrial fibrillation, but she should be maintained on aspirin. She will be a poor rehab candidate given her dementia. It is possible she could even with the stroke with gaze preference and left-sided weakness, she could even have edema and swelling and have complications from that. However I think given the atrophy she has, this is less likely to be an issue but possible. Thank you for sharing her case. [id number]/[facility] #: [id number] [facility]ALS[facility]
--- NOTE | 2017-04-08 22:13 | RAD ---
Indication: Left-sided weakness. Image sequences: Sagittal and axial T1, axial T2, FLAIR, diffusion and susceptibility weighted images of the brain were obtained. Ventricular structures are midline. No midline shift is noted. The extra-axial spaces are unremarkable. There is no restriction of diffusion. The FLAIR images demonstrate periventricular lucency consistent with chronic ischemic White matter change. There is central and cortical atrophy noted. No vasogenic edema is noted. The susceptibility weighted images demonstrates punctate areas of susceptibility artifact in the basal ganglia and temporal lobes and in the brainstem likely due to prior petechial hemorrhages. Tortuous basilar artery is noted. Mastoid air cells and paranasal sinuses are unremarkable. IMPRESSION: No evidence of restriction of diffusion to suggest an acute stroke. 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 Tortuous basilar artery is present.
[2017-04-09] MEDS: NS 0.9% 1000 ML* 1,000 ML IV SCH (03:29)
[2017-04-09] MEDS: Heparin VIAL(*) 5000 UNITS/ML VIAL (FIVE THOUSAND) SUBCUT SCH ×3 (05:07→21:20)
[2017-04-09 06:10] LABS: ABS Basophils 0.1 10^3/ul (0-0.2); ABS Eosinophils 0.2 10^3/ul (0-0.6); ABS Lymphocytes 1.5 10^3/ul (1.0-4.8); ABS Monocytes 1.1 10^3/ul (0-0.8); ABS Neutrophils 7.1 10^3/ul (1.5-7.7); ABS Nucleated RBC 0 10^3/ul; Hematocrit 28 % (35-47); Hemoglobin 9.6 g/dl (12.0-16.0); Lymphocyte % 14.8 % (25-47); Mean Corpuscular HGB Conc 34 g/dl (31-36); Mean Corpuscular Hemoglobin 26 pg (27-31); Mean Corpuscular Volume 78 fL (80-97); Mean Platelet Volume 9 um3 (7.4-10.4); Nucleated Red Blood Cells % 0; Platelet Count 241 10^3/ul (150-450); Red Blood Count 3.65 10^6/ul (4.0-5.4); Red Cell Distribution Width 16 % (10.5-15)
[2017-04-09 06:34] LABS: EGFR Non-African American 66.3 (>60)
[2017-04-09] MEDS ORDERED: KCL 20 MEQ/100 ML IVPREMIX* 20 MEQ/100 ML BAG IV SCH (07:00)
[2017-04-09] MEDS: Albuterol HFA INHALER* 8 gm MDI INH SCH ×2 (07:38→20:21)
[2017-04-09] MEDS: Mometasone/Formoter 200/5 MDI INH SCH ×2 (07:39→20:21)
[2017-04-09] MEDS: KCL premix 10MEQ/50 ML x 3 RUNS IV SCH ×4 (07:49→11:22)
--- NOTE | 2017-04-09 08:05 | ED ---
True Barrera Angela scribed for Daniel Parra MD on 04/08/17 at 0906 . Neurological HPI - HPI Summary HPI Summary: This pt is a 86 y/o female presenting to [facility] via EMS from [facility] for left sided weakness today. Pt was last seen well last night. EMS reports the pt was given her morning medications and was seen not normal. EMS was called at approximately 08:30 and noted left sided weakness and gaze to the right. Pt has alzheimer's disease and HPI is limited. - History of Current Complaint Stated Complaint: POSSIBLE STROKE Hx Obtained From: EMS Hx From Patient Unobtainable Due To: Other - Pt has alzheimer's disease Hx Last Menstrual Period: postmenopausal Onset/Duration: Started hours ago, Still Present Timing: Sudden Onset Onset Severity: Moderate Current Severity: Moderate Neurological Deficit Location: Facial - gaze to the right, LUE, LLE Character: Weak - left sided, Other: - Gaze to the right Aggravating: Nothing Alleviating: Nothing Associated Signs and Symptoms: Positive: Visual Changes - gaze to the right, Weakness - left sided - Additional Pertinent History Primary Care Physician: [id number] - Allergy/Home Medications Allergies/Adverse Reactions: Allergies Allergy/AdvReac Type Severity Reaction Status Date / Time No Known Allergies Allergy Verified 08/02/16 17:16 Home Medications: Home Medications Acetaminophen [Acetaminophen ER] 650 mg PO BID 04/08/17 [History Confirmed 04/08] PMH/Surg Hx/FS Hx/Imm Hx Endocrine/Hematology History: Reports: Hx Thyroid Disease, Hx Anemia Denies: Hx Anticoagulant Therapy, Hx Blood Disorders, Hx Blood Transfusions, Hx Bone Marrow Disease, Hx Sickle Cell Disease Cardiovascular History: Reports: Hx Hypercholesterolemia, Hx Hypertension Respiratory History: Reports: Hx Asthma GI History: Reports: Hx Gastroesophageal Reflux Disease Musculoskeletal History: Reports: Hx Arthritis Sensory History: Reports: Hx Contacts or Glasses Denies: Hx Hearing Aid Opthamlomology History: Reports: Hx Contacts or Glasses Neurological History: Reports: Hx Dementia - Alzheimer's Denies: Hx Developmental Delay Psychiatric History: Reports: Hx Anxiety - Surgical History Surgery Procedure, Year, and Place: cataracts Hx Anesthesia Reactions: - UNSURE Infectious Disease History: Reports: Hx Shingles - treated - Family History Known Family History: Positive: Hypertension Negative: Cardiac Disease, Diabetes - Social History Alcohol Use: Occasionally Alcohol Amount: 1 x week Hx Substance Use: No Substance Use Type: Reports: None Hx Tobacco Use: No Smoking Status (MU): Never Smoked Tobacco Review of Systems - ROS Summary Review of Systems Summary: ROS is limited due to level 5 caveat - pt has alzheimer's disease. Negative: Fever, Chills Eyes: Other - gaze to the right Positive: Weakness - left sided All Other Systems Reviewed And Are Negative: No Physical Exam - Summary Physical Exam Summary: VITAL SIGNS: Reviewed. GENERAL: Patient is a well-developed and nourished female. Patient is not in any acute respiratory distress. HEAD AND FACE: No signs of trauma. No ecchymosis, hematomas or skull depressions. No sinus tenderness. EYES: PERRLA, EOMI x 2, No injected conjunctiva, no nystagmus. No photophobia. EARS: Hearing grossly intact. Ear canals and tympanic membranes are within normal limits. MOUTH: Oropharynx within normal limits. NECK: Supple, trachea is midline, no adenopathy, no JVD, no carotid bruit, no c- spine tenderness, neck with full ROM. No meningeal signs, no Kernig's or brudzinskis signs. CHEST: Symmetric, no tenderness at palpation LUNGS: Clear to auscultation bilaterally. No wheezing or crackles. CVS: Regular rate and rhythm, S1 and S2 present, no murmurs or gallops appreciated. ABDOMEN: Soft, non-tender. No signs of distention. No rebound no guarding, and no masses palpated. Bowel sounds are normal. EXTREMITIES: FROM in all major joints, no edema, no cyanosis or clubbing. NEURO: Speech is normal. Pt does not follow commands. She is agitated and has a difficult exam. Pt has left sided weakness in the LUE and LLE. Pt has gaze to the right. SKIN: Dry and warm Triage Information Reviewed: Yes Vital Signs On Initial Exam: Initial Vitals Temp Pulse Resp BP Pulse Ox 98.7 F 112 18 158/129 100 04/08/17 09:02 04/08/17 09:02 04/08/17 09:02 04/08/17 09:02 04/08/17 09:02 Vital Signs Reviewed: Yes Completion Of Physical Exam Limited Due To: Level 5 - pt has alzheimer's disease Diagnostics - Vital Signs Vital Signs Temp Pulse Resp BP Pulse Ox 04/08/17 10:56 103 27 183/106 98 04/08/17 09:36 99 04/08/17 09:30 92 28 184/91 100 04/08/17 09:28 99 28 163/108 100 04/08/17 09:02 98.7 F 112 18 158/129 100 - Laboratory Lab Results: Lab Results 04/08/17 04/08/17 04/08/17 Range/Units 09:10 09:10 09:10 WBC 12.4 H (3.5-10.8) 10^3/ul RBC 4.31 (4.0-5.4) 10^6/ul Hgb 11.1 L (12.0-16.0) g/dl Hct 34 L (35-47) % MCV 79 L (80-97) fL MCH 26 L (27-31) pg MCHC 33 (31-36) g/dl RDW 15 (10.5-15) % Plt Count 315 (150-450) 10^3/ul MPV 8 (7.4-10.4) um3 Neut % (Auto) 73.6 (38-83) % Lymph % (Auto) 14.0 L (25-47) % [place] % (Auto) 9.5 H (1-9) % Eos % (Auto) 2.1 (0-6) % Baso % (Auto) 0.8 (0-2) % Absolute Neuts (auto) 9.1 H (1.5-7.7) 10^3/ul Absolute Lymphs (auto) 1.7 (1.0-4.8) 10^3/ul Absolute Monos (auto) 1.2 H (0-0.8) 10^3/ul Absolute Eos (auto) 0.3 (0-0.6) 10^3/ul Absolute Basos (auto) 0.1 (0-0.2) 10^3/ul Absolute Nucleated RBC 0 10^3/ul Nucleated RBC % 0 INR (Anticoag Therapy) 0.90 (0.77-1.02) APTT 32.3 (26.0-36.3) seconds Sodium 134 (133-145) mmol/L Potassium 3.6 (3.5-5.0) mmol/L Chloride 98 L (101-111) mmol/L Carbon Dioxide 22 (22-32) mmol/L Anion Gap 14 H (2-11) mmol/L BUN 19 (6-24) mg/dL Creatinine 1.09 H (0.51-0.95) mg/dL Est GFR ( Amer) 61.4 (>60) Est GFR (Non-Af Amer) 47.7 (>60) BUN/Creatinine Ratio 17.4 (8-20) Glucose 110 H (70-100) mg/dL Lactic Acid (0.5-2.0) mmol/L Calcium 10.0 (8.6-10.3) mg/dL Total Bilirubin 0.60 (0.2-1.0) mg/dL AST 21 (13-39) U/L ALT 12 (7-52) U/L Alkaline Phosphatase 164 H (34-104) U/L Troponin I 0.01 (<0.04) ng/mL Total Protein 8.1 (6.4-8.9) g/dL Albumin 4.0 (3.2-5.2) g/dL Globulin 4.1 H (2-4) g/dL Albumin/Globulin Ratio 1.0 (1-3) Triglycerides 105 mg/dL Cholesterol 120 mg/dL LDL Cholesterol 46 mg/dL HDL Cholesterol 52.6 mg/dL Blood Type Antibody Screen 04/08/17 04/08/17 Range/Units 09:10 09:10 WBC (3.5-10.8) 10^3/ul RBC (4.0-5.4) 10^6/ul Hgb (12.0-16.0) g/dl Hct (35-47) % MCV (80-97) fL MCH (27-31) pg MCHC (31-36) g/dl RDW (10.5-15) % Plt Count (150-450) 10^3/ul MPV (7.4-10.4) um3 Neut % (Auto) (38-83) % Lymph % (Auto) (25-47) % [place] % (Auto) (1-9) % Eos % (Auto) (0-6) % Baso % (Auto) (0-2) % Absolute Neuts (auto) (1.5-7.7) 10^3/ul Absolute Lymphs (auto) (1.0-4.8) 10^3/ul Absolute Monos (auto) (0-0.8) 10^3/ul Absolute Eos (auto) (0-0.6) 10^3/ul Absolute Basos (auto) (0-0.2) 10^3/ul Absolute Nucleated RBC 10^3/ul Nucleated RBC % INR (Anticoag Therapy) (0.77-1.02) APTT (26.0-36.3) seconds Sodium (133-145) mmol/L Potassium (3.5-5.0) mmol/L Chloride (101-111) mmol/L Carbon Dioxide (22-32) mmol/L Anion Gap (2-11) mmol/L BUN (6-24) mg/dL Creatinine (0.51-0.95) mg/dL Est GFR ( Amer) (>60) Est GFR (Non-Af Amer) (>60) BUN/Creatinine Ratio (8-20) Glucose (70-100) mg/dL Lactic Acid 3.3 H* (0.5-2.0) mmol/L Calcium (8.6-10.3) mg/dL Total Bilirubin (0.2-1.0) mg/dL AST (13-39) U/L ALT (7-52) U/L Alkaline Phosphatase (34-104) U/L Troponin I (<0.04) ng/mL Total Protein (6.4-8.9) g/dL Albumin (3.2-5.2) g/dL Globulin (2-4) g/dL Albumin/Globulin Ratio (1-3) Triglycerides mg/dL Cholesterol mg/dL LDL Cholesterol mg/dL HDL Cholesterol mg/dL Blood Type O Positive Antibody Screen Negative Result Diagrams: 04/09/17 05:23 04/09/17 05:23 Lab Statement: Any lab studies that have been ordered have been reviewed, and results considered in the medical decision making process. - CT Brain CT CT Interpretation: No Acute Changes - IMPRESSION: 1. Involutional change and stigmata of chronic small vessel ischemic disease. 2. Negative for intracranial hemorrhage or compelling CT stigmata of ischemic stroke. Dr. Parra has reviewed this radiology report. CT Interpretation Completed By: Radiologist - EKG 09:18 Cardiac Rate: NL EKG Rhythm: Sinus Rhythm - at 99 bpm Ectopy: PVCs EKG Comparison: No Significant Change - similar to prior EKG on 11/16/16. NIH Scale - NIH Scale Level of Consciousness: Alert/Keenly Responsive Ask Patient the Month and His/Her Age: Neither Correct/Aphasic Ask Pt to Open/Close Eyes and Criminal Court Judge/Release Non-Paretic Hand: Neither Correctly Best Gaze (Only Horizontal Eye Movement): Partial Gaze Palsy Visual Field Testing: No Visual Loss Facial Paresis-Pt to Smile & Close Eyes or Grimace Symmetry: Normal/Symmetrical Motor Function - Right Arm: No Drift-Holds 10 Seconds Motor Function - Left Arm: Drifts LT 10 seconds Motor Function - Right Leg: No Drift-Holds 10 Seconds Motor Function - Left Leg: Drifts LT 10 seconds Limb Ataxia-Must be out of Proportion to Weakness Present: Absent Sensory (Use Pinprick to Test Arms/Legs/Trunk/Face): Normal Best Language (Describe Picture, Name Items): No Aphasia Dysarthria (Read Several Words): Normal Extinction and Inattention: No Abnormality Total Score: 7 NIH Stroke Scale Comment: Pt does not follow commands. Pt is agitated and has a difficult exam. Course/Dx - Course Course Of Treatment: This pt is a 86 y/o female presenting to [facility] via EMS from [facility] for left sided weakness today. Pt was last seen well last night. EMS reports the pt was given her morning medications and was seen not normal. EMS was called at approximately 08:30 and noted left sided weakness and gaze to the right. Pt has alzheimer's disease and HPI is limited due to level 5 caveat. Test results within normal limits except for WBC of 12.4, slight anemia , lactic acid of 3.3. Urinalysis is negative for UTI. Influenza A and B are negative. Head CT shows 1. Involutional change and stigmata of chronic small vessel ischemic disease. 2. Negative for intracranial hemorrhage or compelling CT stigmata of ischemic stroke. The pt is still having left sided deficit and gaze to the right. I discussed pts case with Dr. Santiago, neurologist, who recommends the pt to be admitted for a carotid doppler and echocardiogram. He did not recommend an MRI or CTA at this point. The pt is also not a candidate for tPA since she was last well known last night. He requested to contact the pts son, to see how aggressive he wants to be with the pts treatment. Pts son was at dentist office and was unable to be reached. I spoke with Dr. Boone, hospitalist, who has agreed to admit the pt. - Differential Dx Differential Diagnoses Neuro: Positive: Cerebrovascular Accident, Seizure Disorder, Transient Ischemic Attack - Diagnoses Provider Diagnoses: Ischemic cerebrovascular accident (CVA) - Physician Notifications Discussed Care Of Patient With: Cheko Santiago Time Discussed With Above Provider: 10:14 Instructed by Provider To: Other - I discussed pt care with Dr. Santiago, neurologist. [10:30] I spoke with Dr. Boone, hospitalist, who has agreed to admit the pt. - Critical Care Time Critical Care Time: 75-104 min Discharge - Discharge Plan Condition: Stable Disposition: ADMITTED TO [facility] The documentation as recorded by the True saez Angela accurately reflects the service I personally performed and the decisions made by me, Daniel Parra MD.
[2017-04-09] MEDS ORDERED: Aspirin SUPP* 300 MG PR SCH (09:00)
[2017-04-09] MEDS ORDERED: Acetaminophen TAB* 325 MG PO PRN (11:16)
[2017-04-09] MEDS: cefTRIAXone VIAL(*) 1,000 MG in NS 0.9% 50 ML* 50 ML IVPB SCH (13:35)
[2017-04-09] MEDS: Azithromycin IV(*) 500 MG in NS 0.9% 250 ML* 250 ML IVPB SCH (15:07)
--- NOTE | 2017-04-09 18:28 | PN ---
Subjective Date of Service: 04/09/17 Interval History: Nursing reports significant improvement since yesterday. She is able to tell me her name and her son's name. She has no pain. Family History: Unchanged from Admission Social History: Unchanged from Admission Past Medical History: Unchanged from Admission Objective Active Medications: Acetaminophen (Tylenol Tab*) 650 mg PO Q4H PRN PRN Reason: PAIN Albuterol (Ventolin Hfa Inhaler*) 1 puff INH BID [facility] Last Admin: 04/09/17 07:38 Dose: 1 puff Albuterol (Ventolin 2.5 Mg/3 Ml Neb.Mary*) 2.5 mg INH Q2H PRN PRN Reason: SOB/WHEEZING Aspirin (Aspirin Tab*) 325 mg PO DAILY [facility] Heparin Sodium (Porcine) (Heparin Vial(*)) 5,000 units SUBCUT Q8HR [facility] Last Admin: 04/09/17 13:35 Dose: 5,000 units Hydralazine HCl (Apresoline Iv*) 5 mg IV SLOW PU Q6H PRN PRN Reason: BLOOD PRESSURE Sodium Chloride (Ns 0.9% 1000 Ml*) 1,000 mls @ 100 mls/hr IV PER RATE [facility] Last Admin: 04/09/17 03:29 Dose: 100 mls/hr Ceftriaxone Sodium 1,000 mg/ (Sodium Chloride) 50 mls @ 200 mls/hr IVPB Q24H [facility] Last Admin: 04/09/17 13:35 Dose: 200 mls/hr Azithromycin 500 mg/ Sodium (Chloride) 250 mls @ 250 mls/hr IVPB Q24H [facility] Last Admin: 04/09/17 15:07 Dose: 250 mls/hr Mometasone Furoate/Formoterol Fumar (Dulera 200/5 Mdi*) 2 puff INH BID [facility] PRN Reason: Protocol Last Admin: 04/09/17 07:39 Dose: 2 puff Omeprazole (Prilosec Cap*) 20 mg PO DAILY@0600 [facility] Ondansetron HCl (Zofran Inj*) 4 mg IV Q6H PRN PRN Reason: NAUSEA Vital Signs - 8 hr 04/09/17 04/09/17 11:23 15:37 Temperature 97.9 F 97.6 F Pulse Rate 103 103 Respiratory 18 17 Rate Blood Pressure 136/82 129/63 (mmHg) O2 Sat by Pulse 96 96 Oximetry Oxygen Devices in Use Now: None Appearance: elderly frail woman in no distress Eyes: No Scleral Icterus Ears/Nose/Mouth/Throat: NL Teeth, Lips, Gums Neck: NL Appearance and Movements; NL JVP Respiratory: Symmetrical Chest Expansion and Respiratory Effort, Clear to Auscultation Cardiovascular: NL Sounds; No Murmurs; No JVD, RRR Abdominal: NL Sounds; No Tenderness; No Distention Lymphatic: No Cervical Adenopathy Extremities: No Edema Skin: No Rash or Ulcers Neurological: - - oriented to person only, follows simple commands Result Diagrams: 04/09/17 05:23 04/09/17 05:23 Additional Lab and Data: Lab Results 04/08/17 04/08/17 04/08/17 Range/Units 09:10 09:10 09:10 WBC 12.4 H (3.5-10.8) 10^3/ul RBC 4.31 (4.0-5.4) 10^6/ul Hgb 11.1 L (12.0-16.0) g/dl Hct 34 L (35-47) % MCV 79 L (80-97) fL MCH 26 L (27-31) pg MCHC 33 (31-36) g/dl RDW 15 (10.5-15) % Plt Count 315 (150-450) 10^3/ul MPV 8 (7.4-10.4) um3 Neut % (Auto) 73.6 (38-83) % Lymph % (Auto) 14.0 L (25-47) % [place] % (Auto) 9.5 H (1-9) % Eos % (Auto) 2.1 (0-6) % Baso % (Auto) 0.8 (0-2) % Absolute Neuts (auto) 9.1 H (1.5-7.7) 10^3/ul Absolute Lymphs (auto) 1.7 (1.0-4.8) 10^3/ul Absolute Monos (auto) 1.2 H (0-0.8) 10^3/ul Absolute Eos (auto) 0.3 (0-0.6) 10^3/ul Absolute Basos (auto) 0.1 (0-0.2) 10^3/ul Absolute Nucleated RBC 0 10^3/ul Nucleated RBC % 0 INR (Anticoag Therapy) 0.90 (0.77-1.02) APTT 32.3 (26.0-36.3) seconds Sodium 134 (133-145) mmol/L Potassium 3.6 (3.5-5.0) mmol/L Chloride 98 L (101-111) mmol/L Carbon Dioxide 22 (22-32) mmol/L Anion Gap 14 H (2-11) mmol/L BUN 19 (6-24) mg/dL Creatinine 1.09 H (0.51-0.95) mg/dL Est GFR ( Amer) 61.4 (>60) Est GFR (Non-Af Amer) 47.7 (>60) BUN/Creatinine Ratio 17.4 (8-20) Glucose 110 H (70-100) mg/dL Lactic Acid (0.5-2.0) mmol/L Calcium 10.0 (8.6-10.3) mg/dL Total Bilirubin 0.60 (0.2-1.0) mg/dL AST 21 (13-39) U/L ALT 12 (7-52) U/L Alkaline Phosphatase 164 H (34-104) U/L Troponin I 0.01 (<0.04) ng/mL Total Protein 8.1 (6.4-8.9) g/dL Albumin 4.0 (3.2-5.2) g/dL Globulin 4.1 H (2-4) g/dL Albumin/Globulin Ratio 1.0 (1-3) Triglycerides 105 mg/dL Cholesterol 120 mg/dL LDL Cholesterol 46 mg/dL HDL Cholesterol 52.6 mg/dL Blood Type Antibody Screen 04/08/17 04/08/17 Range/Units 09:10 09:10 WBC (3.5-10.8) 10^3/ul RBC (4.0-5.4) 10^6/ul Hgb (12.0-16.0) g/dl Hct (35-47) % MCV (80-97) fL MCH (27-31) pg MCHC (31-36) g/dl RDW (10.5-15) % Plt Count (150-450) 10^3/ul MPV (7.4-10.4) um3 Neut % (Auto) (38-83) % Lymph % (Auto) (25-47) % [place] % (Auto) (1-9) % Eos % (Auto) (0-6) % Baso % (Auto) (0-2) % Absolute Neuts (auto) (1.5-7.7) 10^3/ul Absolute Lymphs (auto) (1.0-4.8) 10^3/ul Absolute Monos (auto) (0-0.8) 10^3/ul Absolute Eos (auto) (0-0.6) 10^3/ul Absolute Basos (auto) (0-0.2) 10^3/ul Absolute Nucleated RBC 10^3/ul Nucleated RBC % INR (Anticoag Therapy) (0.77-1.02) APTT (26.0-36.3) seconds Sodium (133-145) mmol/L Potassium (3.5-5.0) mmol/L Chloride (101-111) mmol/L Carbon Dioxide (22-32) mmol/L Anion Gap (2-11) mmol/L BUN (6-24) mg/dL Creatinine (0.51-0.95) mg/dL Est GFR ( Amer) (>60) Est GFR (Non-Af Amer) (>60) BUN/Creatinine Ratio (8-20) Glucose (70-100) mg/dL Lactic Acid 3.3 H* (0.5-2.0) mmol/L Calcium (8.6-10.3) mg/dL Total Bilirubin (0.2-1.0) mg/dL AST (13-39) U/L ALT (7-52) U/L Alkaline Phosphatase (34-104) U/L Troponin I (<0.04) ng/mL Total Protein (6.4-8.9) g/dL Albumin (3.2-5.2) g/dL Globulin (2-4) g/dL Albumin/Globulin Ratio (1-3) Triglycerides mg/dL Cholesterol mg/dL LDL Cholesterol mg/dL HDL Cholesterol mg/dL Blood Type O Positive Antibody Screen Negative Microbiology and Other Data: Microbiology 04/08/17 14:05 Urine Culture - Preliminary Urine Escherichia Coli 04/08/17 15:34 Aerobic Blood Culture - Preliminary Blood Venous Anaerobic Blood Culture - Preliminary No Growth Day 1 Blood MRSA/MSSA (PCR) - Final Mrsa Negative S.aureus Negative 04/08/17 15:20 Aerobic Blood Culture - Preliminary Blood Venous No Growth Day 1 Anaerobic Blood Culture - Preliminary No Growth Day 1 04/08/17 14:05 Legionella Urinary Antigen - Final Urine Negative Legionella Streptococcus pneumoniae Ag Screen - Final Negative S. pneumo Antigen 04/08/17 12:10 Influenza Types A,B Antigen (JERROD) - Final Nasal Specimen received for Influenza A/B Molecular testing Assess/Plan/Problems-Billing Assessment: - Patient Problems (1) TIA (transient ischemic attack) Current Visit: No Status: Acute Comment: I certainly cannot prove that her sympoms yesterday were a TIA, but based on the reported findings, negative MRI, and resolution of symptoms, i am suspicious for a TIA. Continue aspirin, and add a statin. Incidentally, her symptoms have also improved with antibiotics since yesterday, so despite a negative UA and cxr, I think it is reasonable to treat her with a 5 day course of CAP coverage for an occult pneumonia. (2) GERD (gastroesophageal reflux disease) Current Visit: No Status: Acute Code(s): K21.9 - GASTRO-ESOPHAGEAL REFLUX DISEASE WITHOUT ESOPHAGITIS SNOMED Code(s): 924419717 Comment: Continue Omeprazole. Famotidine held. (3) HTN (hypertension) Current Visit: No Status: Acute Code(s): I10 - ESSENTIAL (PRIMARY) HYPERTENSION SNOMED Code(s): 55883088 Comment: Continue Losartan and Amlodipine for now. Has been on Atenolol in the past. (4) Hyponatremia Current Visit: No Status: Acute Code(s): E87.1 - HYPO-OSMOLALITY AND HYPONATREMIA SNOMED Code(s): 09203615 Comment: Stable and not significant to cause altered mentation Status and Disposition: plan to return to SNF tomorrow if continuing to show improvement. I discussed the case with her son Mykel and explained that while her prognosis is guarded, I do not believe she has a life-threatening condition at this time. He agrees with DNR
[2017-04-09] MEDS: Atorvastatin* 20 MG TAB PO SCH (21:19)
[2017-04-10] MEDS: Omeprazole CAP* 20 MG PO SCH (05:19)
[2017-04-10] MEDS: Heparin VIAL(*) 5000 UNITS/ML VIAL (FIVE THOUSAND) SUBCUT SCH ×3 (05:20→21:52)
[2017-04-10 06:26] LABS: ABS Basophils 0.1 10^3/ul (0-0.2); ABS Eosinophils 0.2 10^3/ul (0-0.6); ABS Lymphocytes 1.3 10^3/ul (1.0-4.8); ABS Monocytes 1.1 10^3/ul (0-0.8); ABS Neutrophils 7.7 10^3/ul (1.5-7.7); ABS Nucleated RBC 0 10^3/ul; Eosinophil % 2.4 % (0-6); Hematocrit 29 % (35-47); Hemoglobin 9.9 g/dl (12.0-16.0); Lymphocyte % 12.9 % (25-47); Mean Corpuscular HGB Conc 34 g/dl (31-36); Mean Corpuscular Hemoglobin 26 pg (27-31); Mean Corpuscular Volume 78 fL (80-97); Mean Platelet Volume 8 um3 (7.4-10.4); Nucleated Red Blood Cells % 0.1; Platelet Count 240 10^3/ul (150-450); Red Blood Count 3.75 10^6/ul (4.0-5.4); Red Cell Distribution Width 16 % (10.5-15); White Blood Count 10.4 10^3/ul (3.5-10.8)
[2017-04-10 06:41] LABS: EGFR Non-African American 68.2 (>60)
[2017-04-10] MEDS: Mometasone/Formoter 200/5 MDI INH SCH ×2 (08:15→20:37)
[2017-04-10] MEDS: Albuterol HFA INHALER* 8 gm MDI INH SCH ×2 (08:15→20:35)
[2017-04-10] MEDS ORDERED: Magnesium Oxide TAB* 400 MG PO ONE (09:00)
[2017-04-10] MEDS ORDERED: Aspirin TAB* 325 MG PO SCH (09:00)
[2017-04-10] MEDS ORDERED: NS 0.9% 500 ML* 500 ML IV ONE (09:01)
[2017-04-10] MEDS: KCL 10 MEQ/50 ML IVPREMIX* 10 MEQ/50 ML BAG IV SCH ×6 (10:08→18:16)
[2017-04-10] MEDS ORDERED: Emollient Lotion 480 ML BTL TOPICAL PRN (10:51)
[2017-04-10] MEDS ORDERED: Acetaminophen TAB* 325 MG PO PRN (10:51)
[2017-04-10] MEDS ORDERED: OLANzapine TAB* 2.5 MG PO ONE (11:59)
[2017-04-10] MEDS ORDERED: Sertraline* 50 MG TAB PO ONE (12:02)
[2017-04-10] MEDS ORDERED: NS 0.9% 1000 ML* 1,000 ML IV ONE (13:25)
[2017-04-10] MEDS: cefTRIAXone VIAL(*) 1,000 MG in NS 0.9% 50 ML* 50 ML IVPB SCH (13:52)
[2017-04-10] MEDS ORDERED: Iohexol 350* (CONTRAST) 500 ML MDV IV ONE (14:00)
--- NOTE | 2017-04-10 15:25 | RAD ---
HISTORY: Bilateral lower extremity pain COMPARISONS: None relevant TECHNIQUE: Multiple transverse and longitudinal ultrasound images were obtained of the bilateral lower extremities from the level of the common femoral vein inferiorly through to the infrapopliteal veins using grayscale, color Doppler, and spectral Doppler imaging with and without compression and with augmentation. FINDINGS: Evaluation is somewhat technically limited secondary to patient inability to cooperate with a scan. VEINS: The venous system of the bilateral lower extremities is compressible throughout its course, with normal flow on color Doppler imaging and normal response to augmentation on spectral Doppler imaging. SOFT TISSUES: There is a 1.7 x 1.1 x 1 point centimeter cyst within the right popliteal fossa consistent with a Mcmanus's cyst. OTHER FINDINGS: None. IMPRESSION: 1. NO RIGHT LOWER EXTREMITY DEEP VEIN THROMBOSIS. 2. NO LEFT LOWER EXTREMITY DEEP VEIN THROMBOSIS. 3. RIGHT MCMANUS'S CYST
[2017-04-10] MEDS: Azithromycin IV(*) 500 MG in NS 0.9% 250 ML* 250 ML IVPB SCH (15:26)
[2017-04-10] MEDS: Acetaminophen TAB* 325 MG PO SCH ×2 (17:03→21:52)
--- NOTE | 2017-04-10 18:39 | PN ---
Subjective Date of Service: 04/10/17 Interval History: More alert. TAchycardic today. Denies pain but very anxious. Worried about her family. I discussed her case with RN at [facility], who says she routinely has "word salad" but ambulates independently. Family History: Unchanged from Admission Social History: Unchanged from Admission Past Medical History: Unchanged from Admission Objective Active Medications: Acetaminophen (Tylenol Tab*) 975 mg PO Q6H [facility] Last Admin: 04/10/17 17:03 Dose: 975 mg Albuterol (Ventolin Hfa Inhaler*) 1 puff INH BID [facility] Last Admin: 04/10/17 08:15 Dose: Not Given Albuterol (Ventolin 2.5 Mg/3 Ml Neb.Mary*) 2.5 mg INH Q2H PRN PRN Reason: SOB/WHEEZING Amlodipine Besylate (Norvasc Tab*) 5 mg PO DAILY [facility] Aspirin (Aspirin Ec Low Dose*) 81 mg PO DAILY [facility] Atorvastatin Calcium (Lipitor*) 20 mg PO 2100 [facility] Last Admin: 04/09/17 21:19 Dose: 20 mg Donepezil HCl (Aricept Tab*) 5 mg PO BEDTIME [facility] Emollient Ointment (Lubriderm Lotion 480 Ml Btl*) 1 applic TOPICAL BEDTIME PRN PRN Reason: DRY SKIN Famotidine (Pepcid Tab*) 20 mg PO BEDTIME [facility] Heparin Sodium (Porcine) (Heparin Vial(*)) 5,000 units SUBCUT Q8HR [facility] Last Admin: 04/10/17 12:56 Dose: 5,000 units Sodium Chloride (Ns 0.9% 1000 Ml*) 1,000 mls @ 100 mls/hr IV PER RATE [facility] Last Admin: 04/09/17 03:29 Dose: 100 mls/hr Ceftriaxone Sodium 1,000 mg/ (Sodium Chloride) 50 mls @ 200 mls/hr IVPB Q24H [facility] Last Admin: 04/10/17 13:52 Dose: 200 mls/hr Azithromycin 500 mg/ Sodium (Chloride) 250 mls @ 250 mls/hr IVPB Q24H [facility] Last Admin: 04/10/17 15:26 Dose: 250 mls/hr Mometasone Furoate/Formoterol Fumar (Dulera 200/5 Mdi*) 2 puff INH BID [facility] PRN Reason: Protocol Last Admin: 04/10/17 08:15 Dose: Not Given Multivitamins/Minerals (Preservision Areds(Multivitamins/Mineral)(Nf)) 2 cap PO BID [facility] Multivitamins/Minerals (Theragran/Minerals Tab*) 1 tab PO DAILY [facility] Nystatin (Nystatin Top Powder*) 1 applic TOPICAL BID [facility] Omeprazole (Prilosec Cap*) 20 mg PO DAILY@0600 [facility] Last Admin: 04/10/17 05:19 Dose: 20 mg Ondansetron HCl (Zofran Inj*) 4 mg IV Q6H PRN PRN Reason: NAUSEA Sertraline HCl (Zoloft*) 50 mg PO DAILY [facility] Vital Signs - 8 hr 04/10/17 04/10/17 11:54 15:49 Temperature 98.8 F 98.3 F Pulse Rate 112 121 Respiratory 24 23 Rate Blood Pressure 162/79 175/97 (mmHg) O2 Sat by Pulse 98 97 Oximetry Oxygen Devices in Use Now: None Appearance: alert, trouble word finding, follow simple commands, speaks nonsensibly Eyes: No Scleral Icterus Ears/Nose/Mouth/Throat: NL Teeth, Lips, Gums Neck: NL Appearance and Movements; NL JVP Respiratory: Symmetrical Chest Expansion and Respiratory Effort Cardiovascular: - - tachycardic, regular rhythm Abdominal: NL Sounds; No Tenderness; No Distention Lymphatic: No Cervical Adenopathy Extremities: No Edema Skin: No Rash or Ulcers Neurological: - - oriented to self only, strength 5+ throughout Result Diagrams: 04/10/17 05:59 04/10/17 05:59 Additional Lab and Data: Lab Results 04/08/17 04/08/17 04/08/17 Range/Units 09:10 09:10 09:10 WBC 12.4 H (3.5-10.8) 10^3/ul RBC 4.31 (4.0-5.4) 10^6/ul Hgb 11.1 L (12.0-16.0) g/dl Hct 34 L (35-47) % MCV 79 L (80-97) fL MCH 26 L (27-31) pg MCHC 33 (31-36) g/dl RDW 15 (10.5-15) % Plt Count 315 (150-450) 10^3/ul MPV 8 (7.4-10.4) um3 Neut % (Auto) 73.6 (38-83) % Lymph % (Auto) 14.0 L (25-47) % King % (Auto) 9.5 H (1-9) % Eos % (Auto) 2.1 (0-6) % Baso % (Auto) 0.8 (0-2) % Absolute Neuts (auto) 9.1 H (1.5-7.7) 10^3/ul Absolute Lymphs (auto) 1.7 (1.0-4.8) 10^3/ul Absolute Monos (auto) 1.2 H (0-0.8) 10^3/ul Absolute Eos (auto) 0.3 (0-0.6) 10^3/ul Absolute Basos (auto) 0.1 (0-0.2) 10^3/ul Absolute Nucleated RBC 0 10^3/ul Nucleated RBC % 0 INR (Anticoag Therapy) 0.90 (0.77-1.02) APTT 32.3 (26.0-36.3) seconds Sodium 134 (133-145) mmol/L Potassium 3.6 (3.5-5.0) mmol/L Chloride 98 L (101-111) mmol/L Carbon Dioxide 22 (22-32) mmol/L Anion Gap 14 H (2-11) mmol/L BUN 19 (6-24) mg/dL Creatinine 1.09 H (0.51-0.95) mg/dL Est GFR ( Amer) 61.4 (>60) Est GFR (Non-Af Amer) 47.7 (>60) BUN/Creatinine Ratio 17.4 (8-20) Glucose 110 H (70-100) mg/dL Lactic Acid (0.5-2.0) mmol/L Calcium 10.0 (8.6-10.3) mg/dL Total Bilirubin 0.60 (0.2-1.0) mg/dL AST 21 (13-39) U/L ALT 12 (7-52) U/L Alkaline Phosphatase 164 H (34-104) U/L Troponin I 0.01 (<0.04) ng/mL Total Protein 8.1 (6.4-8.9) g/dL Albumin 4.0 (3.2-5.2) g/dL Globulin 4.1 H (2-4) g/dL Albumin/Globulin Ratio 1.0 (1-3) Triglycerides 105 mg/dL Cholesterol 120 mg/dL LDL Cholesterol 46 mg/dL HDL Cholesterol 52.6 mg/dL Blood Type Antibody Screen 04/08/17 04/08/17 Range/Units 09:10 09:10 WBC (3.5-10.8) 10^3/ul RBC (4.0-5.4) 10^6/ul Hgb (12.0-16.0) g/dl Hct (35-47) % MCV (80-97) fL MCH (27-31) pg MCHC (31-36) g/dl RDW (10.5-15) % Plt Count (150-450) 10^3/ul MPV (7.4-10.4) um3 Neut % (Auto) (38-83) % Lymph % (Auto) (25-47) % King % (Auto) (1-9) % Eos % (Auto) (0-6) % Baso % (Auto) (0-2) % Absolute Neuts (auto) (1.5-7.7) 10^3/ul Absolute Lymphs (auto) (1.0-4.8) 10^3/ul Absolute Monos (auto) (0-0.8) 10^3/ul Absolute Eos (auto) (0-0.6) 10^3/ul Absolute Basos (auto) (0-0.2) 10^3/ul Absolute Nucleated RBC 10^3/ul Nucleated RBC % INR (Anticoag Therapy) (0.77-1.02) APTT (26.0-36.3) seconds Sodium (133-145) mmol/L Potassium (3.5-5.0) mmol/L Chloride (101-111) mmol/L Carbon Dioxide (22-32) mmol/L Anion Gap (2-11) mmol/L BUN (6-24) mg/dL Creatinine (0.51-0.95) mg/dL Est GFR ( Amer) (>60) Est GFR (Non-Af Amer) (>60) BUN/Creatinine Ratio (8-20) Glucose (70-100) mg/dL Lactic Acid 3.3 H* (0.5-2.0) mmol/L Calcium (8.6-10.3) mg/dL Total Bilirubin (0.2-1.0) mg/dL AST (13-39) U/L ALT (7-52) U/L Alkaline Phosphatase (34-104) U/L Troponin I (<0.04) ng/mL Total Protein (6.4-8.9) g/dL Albumin (3.2-5.2) g/dL Globulin (2-4) g/dL Albumin/Globulin Ratio (1-3) Triglycerides mg/dL Cholesterol mg/dL LDL Cholesterol mg/dL HDL Cholesterol mg/dL Blood Type O Positive Antibody Screen Negative Microbiology and Other Data: Microbiology 04/08/17 14:05 Urine Culture - Preliminary Urine Escherichia Coli 04/08/17 15:34 Aerobic Blood Culture - Preliminary Blood Venous Anaerobic Blood Culture - Preliminary No Growth Day 1 Blood MRSA/MSSA (PCR) - Final Mrsa Negative S.aureus Negative 04/08/17 15:20 Aerobic Blood Culture - Preliminary Blood Venous No Growth Day 1 Anaerobic Blood Culture - Preliminary No Growth Day 1 04/08/17 14:05 Legionella Urinary Antigen - Final Urine Negative Legionella Streptococcus pneumoniae Ag Screen - Final Negative S. pneumo Antigen 04/08/17 12:10 Influenza Types A,B Antigen (JERROD) - Final Nasal Specimen received for Influenza A/B Molecular testing Assess/Plan/Problems-Billing Assessment: - Patient Problems (1) TIA (transient ischemic attack) Current Visit: No Status: Acute Comment: I certainly cannot prove that her sympoms were a TIA, but based on the reported findings, negative MRI, and resolution of symptoms, i am suspicious for a TIA. Continue aspirin, and add a statin. Incidentally, her symptoms have also improved with antibiotics, so despite a negative UA and cxr, I think it is reasonable to treat her with a 5 day course of CAP coverage for an occult pneumonia. (2) GERD (gastroesophageal reflux disease) Current Visit: No Status: Acute Code(s): K21.9 - GASTRO-ESOPHAGEAL REFLUX DISEASE WITHOUT ESOPHAGITIS SNOMED Code(s): 835206935 Comment: Continue Omeprazole. Famotidine held. (3) HTN (hypertension) Current Visit: No Status: Acute Code(s): I10 - ESSENTIAL (PRIMARY) HYPERTENSION SNOMED Code(s): 77552969 Comment: Continue Losartan and Amlodipine for now. Has been on Atenolol in the past. (4) Hyponatremia Current Visit: No Status: Acute Code(s): E87.1 - HYPO-OSMOLALITY AND HYPONATREMIA SNOMED Code(s): 42774922 Comment: Stable and not significant to cause altered mentation (5) Sinus tachycardia Current Visit: Yes Status: Acute Code(s): R00.0 - TACHYCARDIA, UNSPECIFIED SNOMED Code(s): 00624497 Comment: she is euvolemic but unable to express pain. I'm suspicious for pain, so start standing tylenol. I reviewed her medications with jim, and we are not missing any of her home medications that would explain rebound tachycardia Status and Disposition: plan to return to SNF tomorrow if continuing to show improvement. I discussed the case with her son Mykel and explained that while her prognosis is guarded, I do not believe she has a life-threatening condition at this time. He agrees with DNR
--- NOTE | 2017-04-10 21:02 | RAD ---
Indication: Shortness of breath. Contrast: Administered 58.2 ml of OMNIPAQUE 350 mg/ml CTA of the chest was performed after IV contrast administration. Coronal and sagittal reconstructed images were obtained. The pulmonary arterial tree is well opacified. There are no filling defects present to suggest pulmonary embolus. The aorta demonstrates no evidence of aortic dissection. No aneurysmal dilatation of the thoracic aorta is noted. The trachea and major bronchi appear patent. Left pleural effusion with left basilar atelectasis is noted. No pneumothorax is noted. There is left pleural effusion with left basilar atelectasis. Atherosclerotic aorta is noted. IMPRESSION: No evidence of pulmonary embolus is noted. Left pleural effusion with left basilar atelectasis is noted.
[2017-04-10] MEDS: Multivitamins/Minera Areds(NF) 1 CAP CAP PO SCH (21:49)
[2017-04-10] MEDS: Nystatin TOP POWDER* 15 GM BTL TOPICAL SCH (21:50)
[2017-04-10] MEDS: Atorvastatin* 20 MG TAB PO SCH (21:52)
[2017-04-10] MEDS: Donepezil TAB* 5 MG PO SCH (21:52)
[2017-04-10] MEDS: Famotidine TAB* 20 MG PO SCH (21:52)
[2017-04-11] MEDS: Acetaminophen TAB* 325 MG PO SCH ×3 (06:07→17:26)
[2017-04-11] MEDS: Omeprazole CAP* 20 MG PO SCH (06:07)
[2017-04-11] MEDS: Heparin VIAL(*) 5000 UNITS/ML VIAL (FIVE THOUSAND) SUBCUT SCH ×3 (06:08→21:31)
[2017-04-11 06:49] LABS: ABS Basophils 0.1 10^3/ul (0-0.2); ABS Eosinophils 0.3 10^3/ul (0-0.6); ABS Monocytes 1.2 10^3/ul (0-0.8); ABS Neutrophils 7.3 10^3/ul (1.5-7.7); ABS Nucleated RBC 0 10^3/ul; Eosinophil % 2.6 % (0-6); Hematocrit 30 % (35-47); Hemoglobin 10.1 g/dl (12.0-16.0); Lymphocyte % 10.5 % (25-47); Mean Corpuscular HGB Conc 34 g/dl (31-36); Mean Corpuscular Hemoglobin 27 pg (27-31); Mean Corpuscular Volume 78 fL (80-97); Mean Platelet Volume 9 um3 (7.4-10.4); Nucleated Red Blood Cells % 0; Platelet Count 230 10^3/ul (150-450); Red Blood Count 3.78 10^6/ul (4.0-5.4); Red Cell Distribution Width 16 % (10.5-15); White Blood Count 9.9 10^3/ul (3.5-10.8)
[2017-04-11 07:05] LABS: EGFR Non-African American 72.3 (>60)
[2017-04-11] MEDS: Multivitamins/Minerals TAB PO SCH (08:44)
[2017-04-11] MEDS: amLODIPine TAB* 5 MG PO SCH (08:44)
[2017-04-11] MEDS: Magnesium Oxide TAB* 400 MG PO SCH (08:45)
[2017-04-11] MEDS: Sertraline* 50 MG TAB PO SCH (08:45)
[2017-04-11] MEDS: Aspirin EC Low Dose* 81 MG TAB.EC PO SCH (08:45)
[2017-04-11] MEDS: Nystatin TOP POWDER* 15 GM BTL TOPICAL SCH (08:46)
[2017-04-11] MEDS: Multivitamins/Minera Areds(NF) 1 CAP CAP PO SCH ×2 (08:46→22:22)
[2017-04-11] MEDS ORDERED: amLODIPine TAB* 5 MG PO SCH (09:00)
[2017-04-11] MEDS ORDERED: Atorvastatin* 10 MG TAB PO SCH (09:00)
[2017-04-11] MEDS ORDERED: Pantoprazole TAB (NF) 40 MG TAB PO SCH (09:00)
[2017-04-11] MEDS: Mometasone/Formoter 200/5 MDI INH SCH ×2 (10:14→19:54)
[2017-04-11] MEDS: Albuterol HFA INHALER* 8 gm MDI INH SCH ×2 (10:15→19:53)
[2017-04-11] MEDS: cefTRIAXone VIAL(*) 1,000 MG in NS 0.9% 50 ML* 50 ML IVPB SCH (14:30)
[2017-04-11] MEDS: Azithromycin IV(*) 500 MG in NS 0.9% 250 ML* 250 ML IVPB SCH (15:15)
--- NOTE | 2017-04-11 17:28 | PN ---
Subjective Date of Service: 04/11/17 Interval History: No events. CTA ruled out PE. Sinus tachycardia improving. Resting comfortably this morning. No complaints, though ROS is unable to be obtained due to dementia, but she denies pain Family History: Unchanged from Admission Social History: Unchanged from Admission Past Medical History: Unchanged from Admission Objective Active Medications: Acetaminophen (Tylenol Tab*) 975 mg PO Q6H [facility] Last Admin: 04/11/17 11:20 Dose: 975 mg Albuterol (Ventolin Hfa Inhaler*) 1 puff INH BID [facility] Last Admin: 04/11/17 10:15 Dose: 1 puff Albuterol (Ventolin 2.5 Mg/3 Ml Neb.Mary*) 2.5 mg INH Q2H PRN PRN Reason: SOB/WHEEZING Amlodipine Besylate (Norvasc Tab*) 10 mg PO DAILY [facility] Last Admin: 04/11/17 08:44 Dose: 10 mg Aspirin (Aspirin Ec Low Dose*) 81 mg PO DAILY [facility] Last Admin: 04/11/17 08:45 Dose: 81 mg Atorvastatin Calcium (Lipitor*) 20 mg PO 2100 [facility] Last Admin: 04/10/17 21:52 Dose: 20 mg Donepezil HCl (Aricept Tab*) 5 mg PO BEDTIME [facility] Last Admin: 04/10/17 21:52 Dose: 5 mg Emollient Ointment (Lubriderm Lotion 480 Ml Btl*) 1 applic TOPICAL BEDTIME PRN PRN Reason: DRY SKIN Famotidine (Pepcid Tab*) 20 mg PO BEDTIME [facility] Last Admin: 04/10/17 21:52 Dose: 20 mg Heparin Sodium (Porcine) (Heparin Vial(*)) 5,000 units SUBCUT Q8HR [facility] Last Admin: 04/11/17 14:29 Dose: 5,000 units Sodium Chloride (Ns 0.9% 1000 Ml*) 1,000 mls @ 100 mls/hr IV PER RATE [facility] Last Admin: 04/09/17 03:29 Dose: 100 mls/hr Ceftriaxone Sodium 1,000 mg/ (Sodium Chloride) 50 mls @ 200 mls/hr IVPB Q24H [facility] Stop: 04/12/17 16:00 Last Admin: 04/11/17 14:30 Dose: 200 mls/hr Azithromycin 500 mg/ Sodium (Chloride) 250 mls @ 250 mls/hr IVPB Q24H [facility] Stop: 04/12/17 16:00 Last Admin: 04/11/17 15:15 Dose: 250 mls/hr Magnesium Oxide (Magox 400 Tab*) 400 mg PO DAILY [facility] Last Admin: 04/11/17 08:45 Dose: 400 mg Mometasone Furoate/Formoterol Fumar (Dulera 200/5 Mdi*) 2 puff INH BID [facility] PRN Reason: Protocol Last Admin: 04/11/17 10:14 Dose: 2 puff Multivitamins/Minerals (Preservision Areds(Multivitamins/Mineral)(Nf)) 2 cap PO BID [facility] Last Admin: 04/11/17 08:46 Dose: Not Given Multivitamins/Minerals (Theragran/Minerals Tab*) 1 tab PO DAILY [facility] Last Admin: 04/11/17 08:44 Dose: 1 tab Nystatin (Nystatin Top Powder*) 1 applic TOPICAL BID [facility] Last Admin: 04/11/17 08:46 Dose: 1 admin Omeprazole (Prilosec Cap*) 20 mg PO DAILY@0600 [facility] Last Admin: 04/11/17 06:07 Dose: 20 mg Ondansetron HCl (Zofran Inj*) 4 mg IV Q6H PRN PRN Reason: NAUSEA Sertraline HCl (Zoloft*) 50 mg PO DAILY [facility] Last Admin: 04/11/17 08:45 Dose: 50 mg Vital Signs - 8 hr 04/11/17 04/11/17 04/11/17 10:16 11:14 15:31 Temperature 98.4 F 98.3 F Pulse Rate 91 94 83 Respiratory 16 20 18 Rate Blood Pressure 127/69 126/55 (mmHg) O2 Sat by Pulse 98 96 97 Oximetry Oxygen Devices in Use Now: None Appearance: elderly, pleasant female Eyes: No Scleral Icterus Ears/Nose/Mouth/Throat: NL Teeth, Lips, Gums Neck: NL Appearance and Movements; NL JVP Respiratory: Symmetrical Chest Expansion and Respiratory Effort Cardiovascular: NL Sounds; No Murmurs; No JVD Abdominal: NL Sounds; No Tenderness; No Distention Lymphatic: No Cervical Adenopathy Extremities: No Edema Skin: No Rash or Ulcers Neurological: - - oriented to person only, speaks nonsensibly Result Diagrams: 04/11/17 06:17 04/11/17 06:17 Additional Lab and Data: Lab Results 04/08/17 04/08/17 04/08/17 Range/Units 09:10 09:10 09:10 WBC 12.4 H (3.5-10.8) 10^3/ul RBC 4.31 (4.0-5.4) 10^6/ul Hgb 11.1 L (12.0-16.0) g/dl Hct 34 L (35-47) % MCV 79 L (80-97) fL MCH 26 L (27-31) pg MCHC 33 (31-36) g/dl RDW 15 (10.5-15) % Plt Count 315 (150-450) 10^3/ul MPV 8 (7.4-10.4) um3 Neut % (Auto) 73.6 (38-83) % Lymph % (Auto) 14.0 L (25-47) % [place] % (Auto) 9.5 H (1-9) % Eos % (Auto) 2.1 (0-6) % Baso % (Auto) 0.8 (0-2) % Absolute Neuts (auto) 9.1 H (1.5-7.7) 10^3/ul Absolute Lymphs (auto) 1.7 (1.0-4.8) 10^3/ul Absolute Monos (auto) 1.2 H (0-0.8) 10^3/ul Absolute Eos (auto) 0.3 (0-0.6) 10^3/ul Absolute Basos (auto) 0.1 (0-0.2) 10^3/ul Absolute Nucleated RBC 0 10^3/ul Nucleated RBC % 0 INR (Anticoag Therapy) 0.90 (0.77-1.02) APTT 32.3 (26.0-36.3) seconds Sodium 134 (133-145) mmol/L Potassium 3.6 (3.5-5.0) mmol/L Chloride 98 L (101-111) mmol/L Carbon Dioxide 22 (22-32) mmol/L Anion Gap 14 H (2-11) mmol/L BUN 19 (6-24) mg/dL Creatinine 1.09 H (0.51-0.95) mg/dL Est GFR ( Amer) 61.4 (>60) Est GFR (Non-Af Amer) 47.7 (>60) BUN/Creatinine Ratio 17.4 (8-20) Glucose 110 H (70-100) mg/dL Lactic Acid (0.5-2.0) mmol/L Calcium 10.0 (8.6-10.3) mg/dL Total Bilirubin 0.60 (0.2-1.0) mg/dL AST 21 (13-39) U/L ALT 12 (7-52) U/L Alkaline Phosphatase 164 H (34-104) U/L Troponin I 0.01 (<0.04) ng/mL Total Protein 8.1 (6.4-8.9) g/dL Albumin 4.0 (3.2-5.2) g/dL Globulin 4.1 H (2-4) g/dL Albumin/Globulin Ratio 1.0 (1-3) Triglycerides 105 mg/dL Cholesterol 120 mg/dL LDL Cholesterol 46 mg/dL HDL Cholesterol 52.6 mg/dL Blood Type Antibody Screen 04/08/17 04/08/17 Range/Units 09:10 09:10 WBC (3.5-10.8) 10^3/ul RBC (4.0-5.4) 10^6/ul Hgb (12.0-16.0) g/dl Hct (35-47) % MCV (80-97) fL MCH (27-31) pg MCHC (31-36) g/dl RDW (10.5-15) % Plt Count (150-450) 10^3/ul MPV (7.4-10.4) um3 Neut % (Auto) (38-83) % Lymph % (Auto) (25-47) % [place] % (Auto) (1-9) % Eos % (Auto) (0-6) % Baso % (Auto) (0-2) % Absolute Neuts (auto) (1.5-7.7) 10^3/ul Absolute Lymphs (auto) (1.0-4.8) 10^3/ul Absolute Monos (auto) (0-0.8) 10^3/ul Absolute Eos (auto) (0-0.6) 10^3/ul Absolute Basos (auto) (0-0.2) 10^3/ul Absolute Nucleated RBC 10^3/ul Nucleated RBC % INR (Anticoag Therapy) (0.77-1.02) APTT (26.0-36.3) seconds Sodium (133-145) mmol/L Potassium (3.5-5.0) mmol/L Chloride (101-111) mmol/L Carbon Dioxide (22-32) mmol/L Anion Gap (2-11) mmol/L BUN (6-24) mg/dL Creatinine (0.51-0.95) mg/dL Est GFR ( Amer) (>60) Est GFR (Non-Af Amer) (>60) BUN/Creatinine Ratio (8-20) Glucose (70-100) mg/dL Lactic Acid 3.3 H* (0.5-2.0) mmol/L Calcium (8.6-10.3) mg/dL Total Bilirubin (0.2-1.0) mg/dL AST (13-39) U/L ALT (7-52) U/L Alkaline Phosphatase (34-104) U/L Troponin I (<0.04) ng/mL Total Protein (6.4-8.9) g/dL Albumin (3.2-5.2) g/dL Globulin (2-4) g/dL Albumin/Globulin Ratio (1-3) Triglycerides mg/dL Cholesterol mg/dL LDL Cholesterol mg/dL HDL Cholesterol mg/dL Blood Type O Positive Antibody Screen Negative Microbiology and Other Data: Microbiology 04/08/17 14:05 Urine Culture - Preliminary Urine Escherichia Coli 04/08/17 15:34 Aerobic Blood Culture - Preliminary Blood Venous Anaerobic Blood Culture - Preliminary No Growth Day 1 Blood MRSA/MSSA (PCR) - Final Mrsa Negative S.aureus Negative 04/08/17 15:20 Aerobic Blood Culture - Preliminary Blood Venous No Growth Day 1 Anaerobic Blood Culture - Preliminary No Growth Day 1 04/08/17 14:05 Legionella Urinary Antigen - Final Urine Negative Legionella Streptococcus pneumoniae Ag Screen - Final Negative S. pneumo Antigen 04/08/17 12:10 Influenza Types A,B Antigen (JERROD) - Final Nasal Specimen received for Influenza A/B Molecular testing Assess/Plan/Problems-Billing Assessment: - Patient Problems (1) TIA (transient ischemic attack) Current Visit: No Status: Acute Comment: Based on the reported findings, negative MRI, and resolution of symptoms, i am suspicious for a TIA. Continue aspirin, and add a statin. Incidentally, her symptoms have also improved with antibiotics, so despite a negative UA and cxr, I think it is reasonable to treat her with a 5 day course of CAP coverage for an occult pneumonia. (2) GERD (gastroesophageal reflux disease) Current Visit: No Status: Acute Code(s): K21.9 - GASTRO-ESOPHAGEAL REFLUX DISEASE WITHOUT ESOPHAGITIS SNOMED Code(s): 149394209 Comment: Continue Omeprazole. Famotidine held. (3) HTN (hypertension) Current Visit: No Status: Acute Code(s): I10 - ESSENTIAL (PRIMARY) HYPERTENSION SNOMED Code(s): 21173870 Comment: Continue Losartan and Amlodipine for now. Has been on Atenolol in the past. (4) Hyponatremia Current Visit: No Status: Acute Code(s): E87.1 - HYPO-OSMOLALITY AND HYPONATREMIA SNOMED Code(s): 38244525 Comment: Stable and not significant to cause altered mentation (5) Sinus tachycardia Current Visit: Yes Status: Acute Code(s): R00.0 - TACHYCARDIA, UNSPECIFIED SNOMED Code(s): 64698223 Comment: Resolved today. CTA ruled out PE. she is euvolemic. I started standing tylenol with suspicion that she was in pain but unable to express it, and her HR has improved. I reviewed her medications with jim, and we are not missing any of her home medications that would explain rebound tachycardia (6) Dementia Current Visit: No Status: Acute Code(s): F03.90 - UNSPECIFIED DEMENTIA WITHOUT BEHAVIORAL DISTURBANCE SNOMED Code(s): 19648664 Comment: Palliative care consulted. Needs a higher level of care. PT consulted and CM looking for SNF beds. Status and Disposition: plan to return to SNF tomorrow if continuing to show improvement. I discussed the case with her son Mykel and explained that while her prognosis is guarded, I do not believe she has a life-threatening condition at this time. He agrees with DNR
[2017-04-11] MEDS: Donepezil TAB* 5 MG PO SCH (21:26)
[2017-04-11] MEDS: Atorvastatin* 20 MG TAB PO SCH (21:26)
[2017-04-11] MEDS: Famotidine TAB* 20 MG PO SCH (21:26)
[2017-04-12] MEDS: Nystatin TOP POWDER* 15 GM BTL TOPICAL SCH ×3 (00:09→22:43)
[2017-04-12] MEDS: Acetaminophen TAB* 325 MG PO SCH ×5 (00:20→22:16)
[2017-04-12] MEDS: Omeprazole CAP* 20 MG PO SCH (05:23)
[2017-04-12] MEDS: Heparin VIAL(*) 5000 UNITS/ML VIAL (FIVE THOUSAND) SUBCUT SCH ×3 (05:24→22:34)
[2017-04-12] MEDS: Mometasone/Formoter 200/5 MDI INH SCH ×2 (08:26→20:27)
[2017-04-12] MEDS: Albuterol HFA INHALER* 8 gm MDI INH SCH ×2 (08:29→20:28)
[2017-04-12] MEDS: amLODIPine TAB* 5 MG PO SCH (08:49)
[2017-04-12] MEDS: Magnesium Oxide TAB* 400 MG PO SCH (08:55)
[2017-04-12] MEDS: Aspirin EC Low Dose* 81 MG TAB.EC PO SCH (08:58)
[2017-04-12] MEDS: Sertraline* 50 MG TAB PO SCH (08:59)
[2017-04-12] MEDS: Multivitamins/Minera Areds(NF) 1 CAP CAP PO SCH ×2 (09:03→22:18)
[2017-04-12] MEDS: Multivitamins/Minerals TAB PO SCH (09:03)
[2017-04-12] MEDS: cefTRIAXone VIAL(*) 1,000 MG in NS 0.9% 50 ML* 50 ML IVPB SCH (14:19)
[2017-04-12] MEDS: Azithromycin IV(*) 500 MG in NS 0.9% 250 ML* 250 ML IVPB SCH (14:50)
--- NOTE | 2017-04-12 19:21 | PN ---
Hospitalist Progress Note Date of Service: 04/12/17 . awaiting placement efforts to be completed by case management for [facility]. no new plans continuing PNA Rx;
[2017-04-12] MEDS: Atorvastatin* 20 MG TAB PO SCH (22:15)
[2017-04-12] MEDS: Donepezil TAB* 5 MG PO SCH (22:17)
[2017-04-12] MEDS: Famotidine TAB* 20 MG PO SCH (22:18)
[2017-04-13] MEDS: Acetaminophen TAB* 325 MG PO SCH ×4 (06:13→23:29)
[2017-04-13] MEDS: Omeprazole CAP* 20 MG PO SCH (06:14)
[2017-04-13] MEDS: Heparin VIAL(*) 5000 UNITS/ML VIAL (FIVE THOUSAND) SUBCUT SCH ×3 (06:18→20:56)
[2017-04-13] MEDS: amLODIPine TAB* 5 MG PO SCH (08:50)
[2017-04-13] MEDS: Multivitamins/Minerals TAB PO SCH (08:50)
[2017-04-13] MEDS: Magnesium Oxide TAB* 400 MG PO SCH (08:50)
[2017-04-13] MEDS: Nystatin TOP POWDER* 15 GM BTL TOPICAL SCH ×2 (08:50→20:56)
[2017-04-13] MEDS: Sertraline* 50 MG TAB PO SCH (08:50)
[2017-04-13] MEDS: Aspirin EC Low Dose* 81 MG TAB.EC PO SCH (08:50)
[2017-04-13] MEDS: Multivitamins/Minera Areds(NF) 1 CAP CAP PO SCH ×2 (08:51→20:56)
[2017-04-13] MEDS: Albuterol HFA INHALER* 8 gm MDI INH SCH ×2 (10:13→20:39)
[2017-04-13] MEDS: Mometasone/Formoter 200/5 MDI INH SCH ×2 (10:13→20:39)
--- NOTE | 2017-04-13 11:23 | PN ---
Subjective Date of Service: 04/13/17 Interval History: . patient doing better by report, had limited strength & mobility on friday such that [facility] staff felt she would not be adequately strong to continue living there. NH placement efforts were started. BUT, given her improvement yesterday and today, we are going ot requiest [place] staff re-evaluate tomorrow (04/14) and perhaps send patient back there. otherwise, patient is stable. better spirits today denies pain not confused, less frustrated. eating ok // + BM. no changes in overall plan. Family History: Unchanged from Admission Social History: Unchanged from Admission Past Medical History: Unchanged from Admission Objective Active Medications: . Acetaminophen (Tylenol Tab*) 975 mg PO Q6H [facility] Last Admin: 04/13/17 10:34 Dose: 975 mg Albuterol (Ventolin Hfa Inhaler*) 1 puff INH BID [facility] Last Admin: 04/13/17 10:13 Dose: 1 puff Albuterol (Ventolin 2.5 Mg/3 Ml Neb.Mary*) 2.5 mg INH Q2H PRN PRN Reason: SOB/WHEEZING Amlodipine Besylate (Norvasc Tab*) 10 mg PO DAILY [facility] Last Admin: 04/13/17 08:50 Dose: 10 mg Aspirin (Aspirin Ec Low Dose*) 81 mg PO DAILY [facility] Last Admin: 04/13/17 08:50 Dose: 81 mg Atorvastatin Calcium (Lipitor*) 20 mg PO 2100 [facility] Last Admin: 04/12/17 22:15 Dose: 20 mg Donepezil HCl (Aricept Tab*) 5 mg PO BEDTIME [facility] Last Admin: 04/12/17 22:17 Dose: 5 mg Emollient Ointment (Lubriderm Lotion 480 Ml Btl*) 1 applic TOPICAL BEDTIME PRN PRN Reason: DRY SKIN Famotidine (Pepcid Tab*) 20 mg PO BEDTIME [facility] Last Admin: 04/12/17 22:18 Dose: 20 mg Heparin Sodium (Porcine) (Heparin Vial(*)) 5,000 units SUBCUT Q8HR [facility] Last Admin: 04/13/17 06:18 Dose: 5,000 units Sodium Chloride (Ns 0.9% 1000 Ml*) 1,000 mls @ 100 mls/hr IV PER RATE [facility] Last Admin: 01/24/18 03:29 Dose: 100 mls/hr Ceftriaxone Sodium 1 gm/ (Sodium Chloride) 50 mls @ 200 mls/hr IVPB Q24H [facility] Azithromycin 500 mg/ Sodium (Chloride) 250 mls @ 250 mls/hr IVPB Q24H [facility] Magnesium Oxide (Magox 400 Tab*) 400 mg PO DAILY [facility] Last Admin: 04/13/17 08:50 Dose: 400 mg Mometasone Furoate/Formoterol Fumar (Dulera 200/5 Mdi*) 2 puff INH BID [facility] PRN Reason: Protocol Last Admin: 04/13/17 10:13 Dose: 2 puff Multivitamins/Minerals (Preservision Areds(Multivitamins/Mineral)(Nf)) 2 cap PO BID [facility] Last Admin: 04/13/17 08:51 Dose: Not Given Multivitamins/Minerals (Theragran/Minerals Tab*) 1 tab PO DAILY [facility] Last Admin: 04/13/17 08:50 Dose: 1 tab Nystatin (Nystatin Top Powder*) 1 applic TOPICAL BID [facility] Last Admin: 04/13/17 08:50 Dose: 1 admin Omeprazole (Prilosec Cap*) 20 mg PO DAILY@0600 [facility] Last Admin: 04/13/17 06:14 Dose: 20 mg Ondansetron HCl (Zofran Inj*) 4 mg IV Q6H PRN PRN Reason: NAUSEA Sertraline HCl (Zoloft*) 50 mg PO DAILY [facility] Last Admin: 04/13/17 08:50 Dose: 50 mg . Vital Signs - 8 hr 04/13/17 04/13/17 04/13/17 05:29 08:00 10:17 Temperature 97.7 F Pulse Rate 82 102 Respiratory 16 16 16 Rate Blood Pressure 176/75 (mmHg) O2 Sat by Pulse 99 95 Oximetry Oxygen Devices in Use Now: None Appearance: NAD Eyes: No Scleral Icterus Ears/Nose/Mouth/Throat: Clear Oropharnyx Neck: Trachea Midline Respiratory: Symmetrical Chest Expansion and Respiratory Effort Cardiovascular: RRR Abdominal: NL Sounds; No Tenderness; No Distention Lymphatic: No Cervical Adenopathy Extremities: No Edema Skin: No Rash or Ulcers Neurological: - - left arm weakness noted Lines/Tubes/Other Access: Clean, Dry and Intact Peripheral IV Nutrition: Taking PO's Result Diagrams: 04/11/17 06:17 04/11/17 06:17 Additional Lab and Data: . Microbiology and Other Data: Microbiology 04/08/17 14:05 Urine Culture - Preliminary Urine Escherichia Coli 04/08/17 15:34 Aerobic Blood Culture - Preliminary Blood Venous Anaerobic Blood Culture - Preliminary No Growth Day 1 Blood MRSA/MSSA (PCR) - Final Mrsa Negative S.aureus Negative 04/08/17 15:20 Aerobic Blood Culture - Preliminary Blood Venous No Growth Day 1 Anaerobic Blood Culture - Preliminary No Growth Day 1 04/08/17 14:05 Legionella Urinary Antigen - Final Urine Negative Legionella Streptococcus pneumoniae Ag Screen - Final Negative S. pneumo Antigen 04/08/17 12:10 Influenza Types A,B Antigen (JERROD) - Final Nasal Specimen received for Influenza A/B Molecular testing Assess/Plan/Problems-Billing . Assessment: 86 yo female with acute on chronic neurologic deficits unclear whether secondary to TIA/CVA or acute infection. Patient on array of risk-reducing medications (ASA, statin, BP control, etc.) Also, being treated for possible PNA... doing well overall with steady improvement Unclear whether patient can return to [place] or whether she needs more resources/[facility]. Patient herself desires to go back to [place]. . - Patient Problems (1) TIA (transient ischemic attack) Current Visit: No Status: Acute Comment: - Based on the reported findings, negative MRI, and resolution of symptoms, situation certainly suspicious for TIA. - Continue aspirin and statin. - Incidentally, her symptoms have also improved with antibiotics, so despite a negative UA and cxr, finish course of CAP coverage for an occult pneumonia. ( end 04/14/17) (2) Pneumonia Current Visit: Yes Status: Acute Priority: High Code(s): J18.9 - PNEUMONIA , UNSPECIFIED ORGANISM Comment: - go ahead and treat empirically given improvement with abx...finish abx 04/14. (3) Hyponatremia Current Visit: No Status: Chronic Priority: Medium Code(s): E87.1 - HYPO- OSMOLALITY AND HYPONATREMIA Comment: - Stable (4) Physical deconditioning Current Visit: No Status: Acute Code(s): R53.81 - OTHER MALAISE SNOMED Code(s): 03956579934039 Comment: - Lives at [place]; will return there at [place] if not too deconditioned. - PT eval. Status and Disposition: re-eval from [facility] vs NH/SNF placement.
[2017-04-13] MEDS: cefTRIAXone(*) 1 GM in NS 0.9% 50 ML* 50 ML IVPB SCH (14:00)
[2017-04-13] MEDS: Azithromycin IV(*) 500 MG in NS 0.9% 250 ML* 250 ML IVPB SCH (14:31)
[2017-04-13] MEDS: Donepezil TAB* 5 MG PO SCH (20:56)
[2017-04-13] MEDS: Famotidine TAB* 20 MG PO SCH (20:56)
[2017-04-13] MEDS: Atorvastatin* 20 MG TAB PO SCH (20:56)
[2017-04-14] MEDS: Omeprazole CAP* 20 MG PO SCH (05:46)
[2017-04-14] MEDS: Acetaminophen TAB* 325 MG PO SCH ×4 (05:46→23:09)
[2017-04-14] MEDS: Heparin VIAL(*) 5000 UNITS/ML VIAL (FIVE THOUSAND) SUBCUT SCH ×3 (05:46→22:02)
[2017-04-14] MEDS: Mometasone/Formoter 200/5 MDI INH SCH ×2 (09:31→20:51)
[2017-04-14] MEDS: Albuterol HFA INHALER* 8 gm MDI INH SCH ×2 (09:31→20:51)
--- NOTE | 2017-04-14 09:33 | PN ---
Subjective Date of Service: 04/14/17 Interval History: Crying this morning because she thought she saw angels. She does not know where she is. She denies pain, remainder of review of systems is unreliable due to advanced dementia. Family History: Unchanged from Admission Social History: Unchanged from Admission Past Medical History: Unchanged from Admission Objective Active Medications: Acetaminophen (Tylenol Tab*) 975 mg PO Q6H [facility] Last Admin: 04/14/17 05:46 Dose: 975 mg Albuterol (Ventolin Hfa Inhaler*) 1 puff INH BID [facility] Last Admin: 04/13/17 20:39 Dose: 1 puff Albuterol (Ventolin 2.5 Mg/3 Ml Neb.Mary*) 2.5 mg INH Q2H PRN PRN Reason: SOB/WHEEZING Amlodipine Besylate (Norvasc Tab*) 10 mg PO DAILY [facility] Last Admin: 04/13/17 08:50 Dose: 10 mg Aspirin (Aspirin Ec Low Dose*) 81 mg PO DAILY [facility] Last Admin: 04/13/17 08:50 Dose: 81 mg Atorvastatin Calcium (Lipitor*) 20 mg PO 2100 [facility] Last Admin: 04/13/17 20:56 Dose: 20 mg Donepezil HCl (Aricept Tab*) 5 mg PO BEDTIME [facility] Last Admin: 04/13/17 20:56 Dose: 5 mg Emollient Ointment (Lubriderm Lotion 480 Ml Btl*) 1 applic TOPICAL BEDTIME PRN PRN Reason: DRY SKIN Famotidine (Pepcid Tab*) 20 mg PO BEDTIME [facility] Last Admin: 04/13/17 20:56 Dose: 20 mg Heparin Sodium (Porcine) (Heparin Vial(*)) 5,000 units SUBCUT Q8HR [facility] Last Admin: 04/14/17 05:46 Dose: 5,000 units Sodium Chloride (Ns 0.9% 1000 Ml*) 1,000 mls @ 100 mls/hr IV PER RATE [facility] Last Admin: 04/09/17 03:29 Dose: 100 mls/hr Ceftriaxone Sodium 1 gm/ (Sodium Chloride) 50 mls @ 200 mls/hr IVPB Q24H [facility] Last Admin: 04/13/17 14:00 Dose: 200 mls/hr Azithromycin 500 mg/ Sodium (Chloride) 250 mls @ 250 mls/hr IVPB Q24H [facility] Last Admin: 04/13/17 14:31 Dose: 250 mls/hr Magnesium Oxide (Magox 400 Tab*) 400 mg PO DAILY [facility] Last Admin: 04/13/17 08:50 Dose: 400 mg Mometasone Furoate/Formoterol Fumar (Dulera 200/5 Mdi*) 2 puff INH BID [facility] PRN Reason: Protocol Last Admin: 04/13/17 20:39 Dose: 2 puff Multivitamins/Minerals (Preservision Areds(Multivitamins/Mineral)(Nf)) 2 cap PO BID [facility] Last Admin: 04/13/17 20:56 Dose: Not Given Multivitamins/Minerals (Theragran/Minerals Tab*) 1 tab PO DAILY [facility] Last Admin: 04/13/17 08:50 Dose: 1 tab Nystatin (Nystatin Top Powder*) 1 applic TOPICAL BID [facility] Last Admin: 04/13/17 20:56 Dose: 1 admin Omeprazole (Prilosec Cap*) 20 mg PO DAILY@0600 [facility] Last Admin: 04/14/17 05:46 Dose: 20 mg Ondansetron HCl (Zofran Inj*) 4 mg IV Q6H PRN PRN Reason: NAUSEA Sertraline HCl (Zoloft*) 50 mg PO DAILY [facility] Last Admin: 04/13/17 08:50 Dose: 50 mg Vital Signs - 8 hr 04/14/17 03:52 O2 Sat by Pulse 98 Oximetry Oxygen Devices in Use Now: None Appearance: elderly female, anxious and tearful Eyes: No Scleral Icterus Ears/Nose/Mouth/Throat: NL Teeth, Lips, Gums Neck: NL Appearance and Movements; NL JVP Respiratory: Symmetrical Chest Expansion and Respiratory Effort, Clear to Auscultation Cardiovascular: RRR, No Edema Abdominal: NL Sounds; No Tenderness; No Distention Lymphatic: No Cervical Adenopathy Extremities: No Edema Skin: No Rash or Ulcers Neurological: - - oriented to self only Result Diagrams: 04/11/17 06:17 04/11/17 06:17 Additional Lab and Data: . Microbiology and Other Data: Microbiology 04/08/17 14:05 Urine Culture - Preliminary Urine Escherichia Coli 04/08/17 15:34 Aerobic Blood Culture - Preliminary Blood Venous Anaerobic Blood Culture - Preliminary No Growth Day 1 Blood MRSA/MSSA (PCR) - Final Mrsa Negative S.aureus Negative 04/08/17 15:20 Aerobic Blood Culture - Preliminary Blood Venous No Growth Day 1 Anaerobic Blood Culture - Preliminary No Growth Day 1 04/08/17 14:05 Legionella Urinary Antigen - Final Urine Negative Legionella Streptococcus pneumoniae Ag Screen - Final Negative S. pneumo Antigen 04/08/17 12:10 Influenza Types A,B Antigen (JERROD) - Final Nasal Specimen received for Influenza A/B Molecular testing Assess/Plan/Problems-Billing . Assessment: 86 yo female admitted with acute neurologic deficits without radiographic findings of a CVA, being treated for TIA vs. CAP now with return to baseline. . - Patient Problems (1) TIA (transient ischemic attack) Current Visit: No Status: Acute Comment: Based on the reported findings, negative MRI, and resolution of symptoms, situation certainly suspicious for TIA --while the gaze deviation and weakness resolved after less than 24 hours, her delirium persisted, but has no resolved. Continue aspirin and statin for secondary prevention Today is the last day of antibiotics for suspected pneumonia, which also may have contributed to her neurologic findings despite negative radiography (2) GERD (gastroesophageal reflux disease) Current Visit: No Status: Acute Code(s): K21.9 - GASTRO-ESOPHAGEAL REFLUX DISEASE WITHOUT ESOPHAGITIS SNOMED Code(s): 636593075 Comment: Continue Omeprazole. Famotidine held. (3) HTN (hypertension) Current Visit: No Status: Acute Code(s): I10 - ESSENTIAL (PRIMARY) HYPERTENSION SNOMED Code(s): 48980793 Comment: Continue Losartan and Amlodipine for now. Has been on Atenolol in the past. (4) Hyponatremia Current Visit: No Status: Chronic Priority: Medium Code(s): E87.1 - HYPO- OSMOLALITY AND HYPONATREMIA SNOMED Code(s): 64721793 Comment: stable, no BMPs (5) Sinus tachycardia Current Visit: Yes Status: Acute Code(s): R00.0 - TACHYCARDIA, UNSPECIFIED SNOMED Code(s): 74706555 Comment: Resolved. CTA ruled out PE. she is euvolemic. I started standing tylenol with suspicion that she was in pain but unable to express it, and her HR has improved. I reviewed her medications with jim, and we are not missing any of her home medications that would explain rebound tachycardia (6) Dementia Current Visit: No Status: Acute Code(s): F03.90 - UNSPECIFIED DEMENTIA WITHOUT BEHAVIORAL DISTURBANCE SNOMED Code(s): 28324678 Comment: Actually back to her reported baseline today. Plan to reassess a transfer back to [facility]; discussed with Case Management. Status and Disposition: re-eval from [facility] vs NH/SNF placement.
[2017-04-14] MEDS: Magnesium Oxide TAB* 400 MG PO SCH (10:11)
[2017-04-14] MEDS: Sertraline* 50 MG TAB PO SCH (10:11)
[2017-04-14] MEDS: Multivitamins/Minera Areds(NF) 1 CAP CAP PO SCH ×2 (10:12→20:33)
[2017-04-14] MEDS: amLODIPine TAB* 5 MG PO SCH (10:12)
[2017-04-14] MEDS: Nystatin TOP POWDER* 15 GM BTL TOPICAL SCH ×2 (10:12→20:31)
[2017-04-14] MEDS: Multivitamins/Minerals TAB PO SCH (10:12)
[2017-04-14] MEDS: Aspirin EC Low Dose* 81 MG TAB.EC PO SCH (10:12)
[2017-04-14] MEDS: cefTRIAXone(*) 1 GM in NS 0.9% 50 ML* 50 ML IVPB SCH (14:34)
[2017-04-14] MEDS: Azithromycin IV(*) 500 MG in NS 0.9% 250 ML* 250 ML IVPB SCH (15:25)
[2017-04-14] MEDS: Atorvastatin* 20 MG TAB PO SCH (20:23)
[2017-04-14] MEDS: Famotidine TAB* 20 MG PO SCH (20:24)
[2017-04-14] MEDS: Donepezil TAB* 5 MG PO SCH (20:24)
[2017-04-15] MEDS: Omeprazole CAP* 20 MG PO SCH (06:16)
[2017-04-15] MEDS: Heparin VIAL(*) 5000 UNITS/ML VIAL (FIVE THOUSAND) SUBCUT SCH (06:16)
[2017-04-15] MEDS: Acetaminophen TAB* 325 MG PO SCH (06:16)
[2017-04-15 08:24] VITALS: BP 149/70
[2017-04-15] MEDS: Sertraline* 50 MG TAB PO SCH (08:24)
[2017-04-15] MEDS: Magnesium Oxide TAB* 400 MG PO SCH (08:24)
[2017-04-15] MEDS: Nystatin TOP POWDER* 15 GM BTL TOPICAL SCH (08:24)
[2017-04-15] MEDS: amLODIPine TAB* 5 MG PO SCH (08:24)
[2017-04-15] MEDS: Multivitamins/Minerals TAB PO SCH (08:24)
[2017-04-15] MEDS: Aspirin EC Low Dose* 81 MG TAB.EC PO SCH (08:24)
[2017-04-15] MEDS: Mometasone/Formoter 200/5 MDI INH SCH (08:36)
[2017-04-15] MEDS: Albuterol HFA INHALER* 8 gm MDI INH SCH (08:37)
[2017-04-15] MEDS: Multivitamins/Minera Areds(NF) 1 CAP CAP PO SCH (10:13)
--- NOTE | 2017-04-16 21:18 | DS ---
CC: Dr. Lopez; Dr. Santiago * DISCHARGE SUMMARY: DATE OF ADMISSION: 04/10/17 DATE OF DISCHARGE: 04/15/17 PRIMARY CARE PROVIDER: Dr. Lopez. PRINCIPAL DISCHARGE DIAGNOSIS: Transient ischemic attack. SECONDARY DISCHARGE DIAGNOSES: 1. Community-acquired pneumonia. 2. Hypertension. 3. Dementia. 4. Hyperlipidemia. 5. Hyponatremia. PHYSICAL EXAMINATION ON THE DAY OF DISCHARGE: Vital Signs: Temperature 97.2, heart rate 83, respiratory rate 16, pulse ox 97% on room air, blood pressure 149 /70. General: Alert, well-appearing elderly female, sitting up in the chair, in no distress. She is pleasant and conversive somewhat appropriately. She is oriented to person only, but asks appropriate questions about going home and follow simple commands. HEENT: Pupils equal, round and reactive to light. Moist mucosa. No pharyngeal exudates. Neck: No JVP. No adenopathy. Chest: Regular rate and rhythm. No murmurs. PMI nondisplaced. Lungs: Clear bilaterally. Abdomen: Soft, nontender, nondistended. Extremities: No edema. No rashes. HOSPITAL COURSE BY PROBLEM: 1. Stroke-like symptoms. She was transferred to the emergency department from [place] with concern for a CVA. The nursing staff at [facility] reported gaze deviation and left-sided weakness. In the emergency department, the symptoms were also found, but an initial CT was negative for acute CVA. She was outside the window for TPA, but her stroke evaluation was continued. An MRI was negative for CVA as well. At admission, she was also started on community- acquired pneumonia treatment for a cough despite a negative chest x-ray. There was some concern that she had an infectious etiology of her stroke-like symptoms. On the second day of admission, her neurologic deficits resolved; however, she was still quite altered from her baseline. She was continued on antibiotics and started on aspirin and statin for a possible TIA and slowly, she began to improve. By the third day of admission, she had returned to her baseline. Her baseline is very alert and pleasant. She completes all of her ADLs independently at [facility] and has minimal assistance. She is, however, consistently disoriented and only knows herself and her son, Mykel. She completed a 5-day course of community-acquired pneumonia treatment for an occult suspected pneumonia and will be continued on aspirin and statin for presumed TIA. 2. Hyponatremia. Her sodium resolved with normal saline and is 135 on the most recent BMP. This was not thought to contribute to her neurologic findings. 3. Sinus tachycardia. She had persistent sinus tachycardia despite being euvolemic. A CT angiogram ruled out PE. It was felt that she was experiencing pain, but was unable to express it. So, she was started on standing Tylenol and had resolution of her tachycardia. 4. GERD. She was continued on Pepcid and omeprazole was discontinued. 5. Advanced dementia. She resides at [facility]. This was discussed with her son, Mykel, and she was reevaluated by [facility], who agreed to have her back in her assisted living facility. MEDICATIONS AT DISCHARGE: 1. Albuterol p.r.n. 2. Tylenol 650 q.4 p.r.n. 3. Advair daily. 4. Pepcid 40 mg daily. 5. Donepezil 5 mg q.h.s. 6. Calcium and vitamin D. 7. Amlodipine 5 mg daily. 8. Zoloft 50 mg daily. 9. Aspirin 81 mg daily. 10. Magnesium oxide 400 mg daily. 11. Atorvastatin 20 mg daily. The new medications from the list are: 1. Aspirin 2. Magnesium. 3. Increased dose of atorvastatin. FOLLOWUP NEEDED: Ms. Wilson should follow up with her primary care provider, Dr. Lopez [id number]/[facility] #: [id number] MTDD
== END 2017-04-15 11:35 | DRG 194 ==
LOC: ED 08:58 → MEDTELE 11:16 → OBSVTOIN 04-10 14:52
PROVIDERS: ADMIT Internal Medicine; ATTEND Internal Medicine
DX: J18.8 Other pneumonia, unspecified organism (principal); G45.9 Transient cerebral ischemic attack, unspecified; D64.9 Anemia, unspecified; G30.9 Alzheimer's disease, unspecified; E87.1 Hypo-osmolality and hyponatremia; F02.80 Dementia in other diseases classified elsewhere, unspecified severity, without behavioral disturbance, psychotic disturbance, mood disturbance, and anxiety; I11.9 Hypertensive heart disease without heart failure; E78.5 Hyperlipidemia, unspecified; R00.0 Tachycardia, unspecified; K21.9 Gastro-esophageal reflux disease without esophagitis; F41.9 Anxiety disorder, unspecified; M19.90 Unspecified osteoarthritis, unspecified site; J45.909 Unspecified asthma, uncomplicated; I65.23 Occlusion and stenosis of bilateral carotid arteries; Z79.1 Long term (current) use of non-steroidal anti-inflammatories (NSAID); Z79.899 Other long term (current) drug therapy
CPT/HCPCS: 36415; 70450; 70551; 71045; 71275; 80048; 80053; 80061; 81003; 82140; 83036; 83605; 83735; 84484; 85025; 85610; 85730; 86850; 86900; 86901; 87040; 87077; 87086; 87150; 87186; 87205; 87502; 87899; 93005; 93880; 93970; 94640; 94760; A9270-GY; G0378; G8978-GP-CN; G8979-GP-CN; G8996-GN-CJ; G8997-GN-CJ; G8998-GN-CJ; J0456; J0696; J1630; J1644; J2060; J3480; Q9967

== ENCOUNTER 2017-07-23 17:22 | Emergency (ER) | payer MEDICARE, OTHER ==
--- NOTE | 2017-07-23 18:19 | RAD ---
Indication: Witnessed fall; struck back of head. Small scalp laceration. Comparison: April 08, 2017 MRI and November 16, 2016 CT brain. Technique: Noncontrast CT vertex of skull through foramen magnum. Report: Moderate prominence of the cerebral sulci and cerebellar fissures reflecting atrophy. Proportional enlargement of the ventricles. Patent basal cisterns. Decreased density in the periventricular and subcortical white matter while non-specific is most likely due to chronic microangiopathy. Small chronic lacunar infarct at the RIGHT thalamus. Negative for baires matter white matter obscuration, intra or extra-axial hemorrhage, or mass effect. Unremarkable orbital contents. Small posterior midline scalp laceration. Negative for significant scalp hematoma. Negative for calvarial or skull base fracture. Clear partially visualized paranasal sinuses and mastoid air spaces. IMPRESSION: No evidence for traumatic brain injury or acute intracranial process. Involutional change, stigmata of chronic small vessel ischemic disease, and small chronic lacunar infarct at the RIGHT thalamus.
[2017-07-23] MEDS ORDERED: Magnesium CITRATE* 300 ML BTL PO ONE (18:23)
--- NOTE | 2017-07-23 18:42 | ED ---
Head Injury - HPI Summary HPI Summary: Patient from nursing facility complains of witnessed fall with pain and abrasion at the back of her head today. Patient history of dementia, alert, not oriented, poor historian, but denies loc, FREGOSO, vision change, N/V, face pain , tooth or tongue pain, neck pain, fever, cough, sore throat, CP, SOB, N/V/D, abdomen pain, change in urinary BM. No anti-coag. Bleeding controlled - History Of Current Complaint Chief Complaint: EDHeadInjury Stated Complaint: FALL Time Seen by Provider: 07/23/17 17:35 Hx Obtained From: Patient Hx Last Menstrual Period: postmenopausal Mechanism Of Injury: Unknown Onset/Duration: Started Hours Ago Onset of Pain: Immediate Severity Currently: None Severity Initially: Mild Pain Intensity: 0 Pain Scale Used: 0-10 Numeric - Allergies/Home Medications Allergies/Adverse Reactions: Allergies Allergy/AdvReac Type Severity Reaction Status Date / Time No Known Allergies Allergy Verified 07/23/17 17:32 PMH/Surg Hx/FS Hx/Imm Hx Endocrine/Hematology History: Reports: Hx Thyroid Disease, Hx Anemia Denies: Hx Anticoagulant Therapy, Hx Blood Disorders, Hx Blood Transfusions, Hx Bone Marrow Disease, Hx Sickle Cell Disease Cardiovascular History: Reports: Hx Hypercholesterolemia, Hx Hypertension, Other Cardiovascular Problems/Disorders - carotid stenosis Denies: Hx Pacemaker/ICD Respiratory History: Reports: Hx Asthma GI History: Reports: Hx Gastroesophageal Reflux Disease History: Reports: Other Problems/Disorders - urinary retention Musculoskeletal History: Reports: Hx Arthritis Sensory History: Reports: Hx Contacts or Glasses Denies: Hx Hearing Aid Opthamlomology History: Reports: Hx Contacts or Glasses Neurological History: Reports: Hx Dementia - Alzheimer's, Hx Transient Ischemic Attacks (TIA), Other Neuro Impairments/Disorders - severe confusion when hospitalized Denies: Hx Developmental Delay Psychiatric History: Reports: Hx Anxiety Denies: Hx Panic Disorder - Surgical History Surgery Procedure, Year, and Place: cataracts Hx Anesthesia Reactions: - UNSURE Infectious Disease History: No Infectious Disease History: Reports: Hx Shingles - treated Denies: Traveled Outside the [place] in Last 30 Days - Family History Known Family History: Positive: Hypertension Negative: Cardiac Disease, Diabetes - Social History Alcohol Use: Occasionally Alcohol Amount: 1 x week Hx Substance Use: No Substance Use Type: Reports: None Hx Tobacco Use: No Smoking Status (MU): Never Smoked Tobacco Review of Systems Constitutional: Negative Eyes: Negative ENT: Negative Cardiovascular: Negative Respiratory: Negative Gastrointestinal: Negative Genitourinary: Negative Musculoskeletal: Negative Skin: Negative Neurological: Negative Psychological: Normal All Other Systems Reviewed And Are Negative: Yes Physical Exam - Summary Physical Exam Summary: Small abrasion posterior head. No indication for sutures. No other ecchymosis , erythema, contusion, deformity noted to head, face, mouth, neck. Full range of motion of neck. Full range of motion of jaw. No pain with palpation of neck , back, chest wall, abdomen, hips. Patient flexes and extends bilateral upper extremities and lower extremities without any indication of pain. Exam normal Triage Information Reviewed: Yes Vital Signs On Initial Exam: Initial Vitals Pulse BP Pulse Ox 82 148/86 96 07/23/17 17:25 07/23/17 17:25 07/23/17 17:25 Vital Signs Reviewed: Yes Completion Of Physical Exam Limited Due To: Dementia Appearance: Positive: Well-Appearing Skin: Positive: Warm Head/Face: Positive: Normal Head/Face Inspection Eyes: Positive: Normal ENT: Positive: Normal ENT inspection Neck: Positive: Supple Respiratory/Lung Sounds: Positive: Clear to Auscultation Cardiovascular: Positive: Normal Abdomen Description: Positive: Nontender Musculoskeletal: Positive: Normal Neurological: Positive: Normal Psychiatric: Positive: Normal AVPU Assessment: Alert - [place] Coma Scale Best Eye Response: 4 - Spontaneous Best Motor Response: 6 - Obeys Commands Best Verbal Response: 5 - Oriented Coma Scale Total: 15 Diagnostics - Vital Signs Vital Signs Temp Pulse Resp BP Pulse Ox 07/23/17 18:06 84 98 07/23/17 17:34 87 96 07/23/17 17:26 98.5 F 91 16 148/86 98 07/23/17 17:25 82 148/86 96 - Laboratory Lab Statement: Any lab studies that have been ordered have been reviewed, and results considered in the medical decision making process. - CT head CT Interpretation: No Acute Changes CT Interpretation Completed By: Radiologist Head Injury Course/Dx Course Of Treatment: Vital signs stable and within normal limits. Mild abrasion on posterior head, no indication for sutures/rah. No facial, oral , neck, back, chest wall, hip, bilateral upper or lower extremity pain. Neuro exam within normal limits given patient dementia - Diagnoses Provider Diagnoses: Fall, Abrasion Discharge - Sign-Out/Discharge Documenting (check all that apply): Discharge/Admit/Transfer - Discharge Plan Condition: Stable Disposition: HOME Patient Education Materials: Fall Prevention for Older Adults (ED), Fall Prevention (ED) Referrals: Jody Lopez MD [Primary Care Provider] - Additional Instructions: Follow-up with primary care. Return to the ED for any new or worsening symptoms - Billing Disposition and Condition Condition: STABLE Disposition: HOME
[2017-07-23 19:12] VITALS: BP 161/95
== END 2017-07-23 19:56 | disposition home or self-care (01) ==
LOC: ED 17:22
DX: S00.91XA Abrasion of unspecified part of head, initial encounter (principal); W19.XXXA Unspecified fall, initial encounter; Y92.9 Unspecified place or not applicable; Z87.19 Personal history of other diseases of the digestive system
CPT/HCPCS: 70450; 99283

== ENCOUNTER 2017-08-10 04:29 | Inpatient (IN) | payer MEDICARE, OTHER ==
[2017-08-10] MEDS ORDERED: Labetalol IV* 5 MG/ML 20 ML VIAL IV PUSH ONE (05:49)
[2017-08-10 06:19] LABS: Hematocrit 34 % (35-47); Hemoglobin 11.4 g/dl (12.0-16.0); Mean Corpuscular HGB Conc 33 g/dl (31-36); Mean Corpuscular Hemoglobin 23 pg (27-31); Mean Corpuscular Volume 69 fL (80-97); Mean Platelet Volume 8.4 um3 (7.4-10.4); Platelet Count 284 10^3/ul (150-450); Red Blood Count 4.96 10^6/ul (4.0-5.4); Red Cell Distribution Width 19 % (10.5-15); White Blood Count 11.5 10^3/ul (3.5-10.8)
[2017-08-10 06:25] LABS: INR 0.9 (0.77-1.02)
[2017-08-10 06:37] LABS: EGFR Non-African American 50.8 (>60)
[2017-08-10 06:40] LABS: ABS Basophils 0.1 10^3/ul (0-0.2); ABS Eosinophils 0.1 10^3/ul (0-0.6); ABS Lymphocytes 1.4 10^3/ul (1.0-4.8); ABS Neutrophils 8.9 10^3/ul (1.5-7.7); ABS Nucleated RBC 0 10^3/ul; Eosinophil % 0.9 % (0-6); Lymphocyte % 12.2 % (25-47); Nucleated Red Blood Cells % 0.1
--- NOTE | 2017-08-10 06:47 | ED ---
Maame Barrera Rebecca, scribed for Aicha Evans MD on 08/10/17 at 0457 . Lower Extremity - HPI Summary HPI Summary: Pt is an 87 y/o F BIBA from [facility] who presents to ED s/p fall. Spoke to the aide at [facility] who takes care of the pt. The pt went to bed last night at 2000. At 0430 this morning, the pt was found on the floor near her bed. When asked if she hit her head, the pt reported she did. Also noted left hip pain, ranked 4/10 on triage using the adult non verbal scale. Current speech is at baseline. Level 5 caveat due to dementia. - History of Current Complaint Chief Complaint: EDHipPelvisInjury Stated Complaint: FALL Time Seen by Provider: 08/10/17 04:33 Hx Obtained From: Medical Records, Other: - Nurse, [facility] staff Hx From Patient Unobtainable Due To: Dementia Hx Last Menstrual Period: postmenopausal Onset/Duration: Still Present Severity Currently: Moderate Pain Intensity: 4 Pain Scale Used: Adult Non Verbal Location: Is Discrete @ - Left hip - Allergies/Home Medications Allergies/Adverse Reactions: Allergies Allergy/AdvReac Type Severity Reaction Status Date / Time No Known Allergies Allergy Verified 07/23/17 17:32 Home Medications: Home Medications Albuterol inh POWDER (NF) [Proair Respiclick] 108 mcg IN DAILY 08/10/17 [ History Confirmed 08/10/17] PMH/Surg Hx/FS Hx/Imm Hx Endocrine/Hematology History: Reports: Hx Thyroid Disease, Hx Anemia Denies: Hx Anticoagulant Therapy, Hx Blood Disorders, Hx Blood Transfusions, Hx Bone Marrow Disease, Hx Sickle Cell Disease Cardiovascular History: Reports: Hx Hypercholesterolemia, Hx Hypertension, Other Cardiovascular Problems/Disorders - carotid stenosis Denies: Hx Pacemaker/ICD Respiratory History: Reports: Hx Asthma GI History: Reports: Hx Gastroesophageal Reflux Disease History: Reports: Other Problems/Disorders - urinary retention Musculoskeletal History: Reports: Hx Arthritis Sensory History: Reports: Hx Contacts or Glasses Denies: Hx Hearing Aid Opthamlomology History: Reports: Hx Contacts or Glasses Neurological History: Reports: Hx Dementia - Alzheimer's, Hx Transient Ischemic Attacks (TIA), Other Neuro Impairments/Disorders - severe confusion when hospitalized Denies: Hx Developmental Delay Psychiatric History: Reports: Hx Anxiety Denies: Hx Panic Disorder - Surgical History Surgery Procedure, Year, and Place: cataracts Hx Anesthesia Reactions: - UNSURE Infectious Disease History: No Infectious Disease History: Reports: Hx Shingles - treated Denies: Traveled Outside the [place] in Last 30 Days - Family History Known Family History: Positive: Hypertension Negative: Cardiac Disease, Diabetes - Social History Alcohol Use: Occasionally Alcohol Amount: 1 x week Hx Substance Use: No Substance Use Type: Reports: None Hx Tobacco Use: No Smoking Status (MU): Never Smoked Tobacco Review of Systems Positive: Other - s/p fall Positive: Other - L hip pain All Other Systems Reviewed And Are Negative: No - Comments Additional Review of Systems Comments: Level 5 caveat due to dementia. Physical Exam - Summary Physical Exam Summary: VITAL SIGNS: Reviewed. GENERAL: ~Patient is a well-developed and nourished female who is lying comfortable in the stretcher. Patient is not in any acute respiratory distress. HEAD AND FACE: No signs of trauma. No ecchymosis, hematomas or skull depressions. No sinus tenderness. EYES: PERRLA, EOMI x 2, No injected conjunctiva, no nystagmus. EARS: Hearing grossly intact. Ear canals and tympanic membranes are within normal limits. MOUTH: Oropharynx within normal limits. CHEST: Symmetric, no tenderness at palpation LUNGS: Clear to auscultation bilaterally. No wheezing or crackles. CVS: Regular rate and rhythm, S1 and S2 present, no murmurs or gallops appreciated. EXTREMITIES: FROM in all major joints, no edema, no cyanosis or clubbing. NEURO: Alert and oriented to name. Neurological exam is grossly nonfocal. She is able to follow commands. SKIN: Dry and warm GCS: 15 Triage Information Reviewed: Yes Vital Signs On Initial Exam: Initial Vitals Temp Pulse Resp BP Pulse Ox 98.1 F 88 16 182/99 99 08/10/17 04:35 08/10/17 04:35 08/10/17 04:35 08/10/17 04:35 08/10/17 04:35 Vital Signs Reviewed: Yes Completion Of Physical Exam Limited Due To: Dementia Diagnostics - Vital Signs Vital Signs Temp Pulse Resp BP Pulse Ox 08/10/17 04:35 98.1 F 88 16 182/99 99 - Laboratory Result Diagrams: 08/10/17 05:56 08/10/17 05:56 Lab Statement: Any lab studies that have been ordered have been reviewed, and results considered in the medical decision making process. - Radiology Hip/Pelvis XR Xray Interpretation: No Acute Changes - No fracture. Pending official report. Radiology Interpretation Completed By: ED Physician CXR Xray Interpretation: No Acute Changes - No acute process. Pending official report. Radiology Interpretation Completed By: ED Physician - CT Brain CT CT Interpretation: No Acute Changes - No evidence of acute pathology. ED physician reviewed this radiology report. Pending official report. CT Interpretation Completed By: Radiologist C-Spine CT CT Interpretation: No Acute Changes - Severe degenerative changes, but no fracture. ED physician reviewed this radiology report. Pending official report. CT Interpretation Completed By: Radiologist - EKG 0604 Cardiac Rate: NL - 77 bpm EKG Rhythm: Sinus Rhythm EKG Interpretation: LVH Re-Evaluation - Re-Evaluation First Eval Re-Evaluation Time: 05:45 Comment: After looking at pts XR, we tried to get the pt out of the bed to walk. Pt is stiff, does not want to bend and could not get her out of bed. Talked to [facility] staff, state that pt typically walks with a walker. Lower Extremity Course/Dx - Course Assessment/Plan: Pt is an 87 y/o F BIBA from [facility] who presents to ED s/p fall. Pt went to bed last night at 2000 then at 0430 this morning, the pt was found on the floor near her bed. When asked if she hit her head, the pt reported she did. L hip pain is also present, ranked 4/10 using non verbal adult scale. Current speech is at baseline. Level 5 caveat due to dementia. Blood work was done. Results include a WBC of 11.5. Hip/pelvis XR is negative for fracture. Blood type is O positive. In the ED course, pt received trandate. After looking at pts XR, we tried to get the pt out of the bed to walk. Pt is stiff, does not want to bend and could not get her out of bed. Talked to [facility] staff, state that pt typically walks with a walker. CXR, brain CT and c-spine CT reveal no acute findings. Pt will be signed out to Dr. Waters, pending dispo, awaiting pelvic CT. - Diagnoses Provider Diagnoses: Fall Discharge - Sign-Out/Discharge Documenting (check all that apply): Sign-Out Patient Signing out patient TO: Luis A Waters - Discharge Plan Condition: Stable Referrals: Jody Lopez MD [Primary Care Provider] - The documentation as recorded by the Maame saez Rebecca accurately reflects the service I personally performed and the decisions made by , Aicha Evans MD.
[2017-08-10] MEDS ORDERED: Potassium Chlor TAB* 20 MEQ TAB.ER PO ONE (07:24)
--- NOTE | 2017-08-10 07:41 | RAD ---
INDICATION: Fall. Possible chest injury. COMPARISON: Chest x-ray April 08, 2017 TECHNIQUE: An AP seated view is submitted. FINDINGS: Bones/Soft Tissues: There are no acute bony findings. There is a scoliotic deformity. 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 Lungs: There are no infiltrates. Pleura: There are no pleural effusions. Other: None IMPRESSION: NO ACTIVE DISEASE.
--- NOTE | 2017-08-10 07:44 | RAD ---
INDICATION: Fall. Possible pelvic injury COMPARISON: Left hip August 10, 2017 TECHNIQUE: Noncontrast axial source images were obtained from the iliac crests through the symphysis pubis. FINDINGS: There are no acute CT abnormalities of the bony pelvis. There is some registration artifact in the left hemipelvis due to movement. The uterus and adnexa appear normal. No free fluid or adenopathy is seen. The noncontrast CT appearance of the bowel is unremarkable. The superficial soft tissues appear normal. The bladder appears normal. IMPRESSION: MILDLY LIMITED EXAMINATION DUE TO MOTION ARTIFACT. NO ACUTE FRACTURE IS SEEN
--- NOTE | 2017-08-10 07:49 | RAD ---
INDICATION: Left hip pain COMPARISON: Pelvis November 19, 2016 TECHNIQUE: An AP view of the pelvis and AP views of the hip in neutral and abducted position were obtained FINDINGS: Bones: There are no acute bony findings. Joint spaces: The hips articulate normally. The joint spaces are preserved. SI joints/symphysis: The SI joints and symphysis are intact. Other: None IMPRESSION: NO ACUTE FRACTURE.
--- NOTE | 2017-08-10 07:53 | RAD ---
INDICATION: Fall. Possible neck injury. COMPARISON: CTA head and neck November 16, 2016 TECHNIQUE: Noncontrast axial source images was performed from the skull base to the thoracic inlet. Coronal and and sagittal reformatted images were generated. FINDINGS: Vertebrae: There are no acute osseous findings. There is advanced osteocytic change throughout the cervical spine. The most severe changes are at C4 C5-C6 C7. There is marked disc space narrowing. There is marginal osteophyte formation. There is evidence of process spurring with multilevel foraminal narrowing. The findings are stable. Alignment: Alignment is unchanged. There is a 3 to 4 mm anterolisthesis of C4-C5 most likely on a degenerative basis. Central Canal: There are no new significant CT abnormalities of the central canal or foramina. MR imaging is a more sensitive method to evaluate the canal and foramina. Intervertebral disc spaces: Advanced degenerative disc disease is noted above. Brain: There is cortical atrophy of the visualized brain. Soft tissues: There are vascular calcifications involving the carotid bifurcations bilaterally. IMPRESSION: ADVANCED DEGENERATIVE DISC DISEASE. NO ACUTE FINDINGS
--- NOTE | 2017-08-10 07:55 | RAD ---
INDICATION: Fall. Intracranial injury. COMPARISON: CT brain July 23, 2017 TECHNIQUE: Noncontrast axial source images were acquired from the skull base to the vertex. FINDINGS: Ventricles/sulci: There is advanced cortical atrophy with compensatory dilatation of the CSF spaces. Brain parenchyma: There is periventricular and subcortical white matter change compatible with chronic ischemia. There are old thalamic infarcts. Intracranial hemorrhage:None. Extra-axial spaces: There are no abnormal extra axial fluid collections or evidence of extra-axial mass. Calvarium: There is no calvarial fracture or other calvarial abnormality. Scalp: There is no evidence of scalp or extracalvarial soft tissue abnormality. Paranasal sinuses/mastoid: The paranasal sinuses and mastoid air cells are clear. Other: None. IMPRESSION: ADVANCED CORTICAL ATROPHY WITH SEQUELA OF PRIOR ISCHEMIC INSULT. NO ACUTE FINDINGS.
[2017-08-10] MEDS ORDERED: Iodixanol* (CONTRAST) 320 MG/ML 100 ML SDV IV ONE (08:59)
--- NOTE | 2017-08-10 09:35 | RAD ---
INDICATION: Fell out of bed. COMPARISON: Noncontrast CT pelvis same date; CTA chest April 10, 2017 TECHNIQUE: Axial source images were obtained from the thoracic inlet to the symphysis pubis following administration of oral and intravenous contrast. 68 mL Visipaque 320 was utilized. Coronal and sagittal reconstructed images were acquired. The examination is mildly limited due to motion artifact CHEST FINDINGS: Neck/thyroid: The visualized neck to include the thyroid appear normal. Chest wall: There are no acute abnormalities of the bony thorax or chest wall. There is no supraclavicular, infraclavicular, or axillary lymphadenopathy. Lungs : There are no pulmonary parenchymal masses or infiltrates. The pulmonary interstitium appears normal. There are no endobronchial lesions. Cardiomediastinal structures: The heart is normal in size. There is no pericardial effusion. There is no evidence of aortic aneurysm or dissection. There is uncoiling and ectasia of the thoracic aorta. There are aortic intimal calcifications. There are coronary artery calcifications. There is calcified mitral annulus The pulmonary vessels appear normal. There is no mediastinal or hilar adenopathy. The esophagus appears normal. Pleura : There are no pleural-based masses or effusions. ABDOMINAL/PELVIC FINDINGS: Liver: The liver is normal in size. There are no masses. There is mild intrahepatic ductal dilatation. Gallbladder: There are no calcified gallstones. There is no evidence of wall thickening or pericholecystic fluid. Spleen: The spleen is normal in size. There are no masses. Pancreas: There is no evidence of pancreatic mass or ductal dilatation. Adrenal glands: There is no evidence of adrenal mass. Kidneys: The kidneys are normal in size and position. There are prompt nephrograms and there is prompt excretion bilaterally. There is a 3 cm lower pole right renal cortical cyst. There is no evidence of nephrolithiasis. Adenopathy: There is no evidence of adenopathy by size criteria. Fluid collections: There are no free or localized fluid collections. Vessels:There are atherosclerotic changes of the abdominal aorta and iliac vessels. There is no focal aneurysm. The IVC is unremarkable GI tract: There are no acute CT bowel findings. There is no obstruction. The stomach and small bowel appear normal. The lower GI tract is normal. The cecum, ileocecal valve, and terminal ileum appear normal. Pelvic organs: The uterus and adnexa appear normal Bladder: There are no bladder masses. Abdominal and pelvic soft tissues: The extraperitoneal abdominal and pelvic soft tissues appear normal.. Osseous structures: There is spondylitic change of the thoracolumbar spine. There is a prominent S type scoliotic deformity. IMPRESSION: NO ACUTE CT FINDINGS.
[2017-08-10 10:19] LABS: Urine Appearance Cloudy; Urine Blood Negative (Negative); Urine Color Yellow; Urine Ketones Negative (Negative); Urine Protein Negative (Negative); Urine Specific Gravity 1.038 (1.010-1.030); Urine Urobilinogen Negative (Negative)
[2017-08-10] MEDS ORDERED: Al Hydrox/Mg Hydrox/Simet LIQ* 30 ML UDC PO PRN (10:42)
[2017-08-10] MEDS ORDERED: Acetaminophen TAB* 325 MG PO PRN (10:42)
[2017-08-10] MEDS ORDERED: NS 0.9% 1000 ML* 1,000 ML IV SCH (11:00)
--- NOTE | 2017-08-10 11:20 | ED ---
Holly, Vidal Medina, summeribed for Luis A Waters on 08/10/17 at 0900 . Progress - Progress Note Progress Note: This patient was signed out from Dr. Evans, pending disposition, awaiting CT pelvis. CT pelvis reveals No acute traumatic pathology. The patients condition is fair and will be admitted to home with Dx of AMS, fall, and dementia. CTA Chest/ABD/ Pelvis reveals, NO ACUTE CT FINDINGS. ED physician has reviewed this report. Re-Evaluation - Re-Evaluation First Eval Re-Evaluation Time: 05:45 Comment: After looking at pts XR, we tried to get the pt out of the bed to walk. Pt is stiff, does not want to bend and could not get her out of bed. Talked to [facility] staff, state that pt typically walks with a walker. Second Eval Re-Evaluation Time: 19:45 Change: Unchanged Comment: The patient is still unable to walk due to pain, even though imaging shows no acute findings. Course/Dx - Diagnoses Provider Diagnoses: Fall, Dementia, Altered mental status - Provider Notifications Discussed Care Of Patient With: Minna Briggs Time Discussed With Above Provider: 08:45 Instructed by Provider To: Admit As Inpatient - She also requested a CT be done prior to admission. Discharge - Sign-Out/Discharge Documenting (check all that apply): Discharge/Admit/Transfer - Discharge Plan Condition: Fair Disposition: ADMITTED TO [facility] Referrals: Jody Lopez MD [Primary Care Provider] - The documentation as recorded by the Carol saez Gabriel accurately reflects the service I personally performed and the decisions made by , Luis A Waters.
[2017-08-10] MEDS: KCL 20 MEQ/100 ML IVPREMIX* 20 MEQ/100 ML BAG IV SCH ×2 (12:27→14:38)
[2017-08-10] MEDS: Enoxaparin(*) 40 MG/0.4 ML SYR SUBCUT SCH (12:27)
[2017-08-10] MEDS: Acetaminophen TAB* 325 MG PO SCH ×2 (12:56→19:17)
--- NOTE | 2017-08-10 12:57 | HP ---
HISTORY AND PHYSICAL: DATE OF ADMISSION: 08/10/17. TIME OF EVALUATION: 10:45 a.m. CHIEF COMPLAINT: Fall. HISTORY OF PRESENT ILLNESS: This is an 87-year-old female with a history of dementia who is unable to provide any history who presents from her long term where she was found on the floor this morning. She was last seen in her usual state of health last evening. This report is obtained from the ED nurse who spoke with a nurse at her long term. She reportedly went to bed last night and was found this morning at approximately 4 a.m. However, no one saw her fall and they do not know at what time she fell. Ms. Wilson is unable to tell me whether she has any pain nor where she is or why she is here. She answers every question with "I don't know" including questions about pain. REVIEW OF SYSTEMS: Unable to be obtained due to dementia. PAST MEDICAL HISTORY: According to prior admissions, she has history of hypertension, advanced dementia, anemia, asthma, osteoarthritis and TIA. HOME MEDICATIONS: 1. Tylenol 650 q.4 p.r.n. pain. 2. Albuterol inhaler b.i.d. p.r.n. wheezing. 3. Norvasc 5 mg daily. 4. Aspirin 81 mg daily. 5. Atorvastatin 20 mg daily. 6. Calcium and vitamin D 1 tab daily. 7. Aricept 5 mg q.h.s. 8. Pepcid 40 mg q.h.s. 9. Multivitamin daily. 10. Sertraline 50 mg daily. SOCIAL HISTORY: Again, I am unable to obtain a social history from her. However, per prior history and physical, she resides at [facility] and her decision maker is her son, Mykel. FAMILY HISTORY: Unable to be obtained. ALLERGIES: Unable to be obtained. PHYSICAL EXAMINATION GENERAL: Alert, pale female in no distress. She is anxious and becomes easily overwhelmed with any questioning. As mentioned before, she answered every question with "I don't know". She is unable to name objects, but she does follow simple commands. VITAL SIGNS: Temperature 98.1, heart rate 79, blood pressure 162/90, respiratory rate 24, pulse ox 99% on room air. HEENT: Pupils equal, round, and reactive to light. Her oral mucosa is dry. She has no pharyngeal exudates. NECK: No cervical or supraclavicular lymphadenopathy. No JVP appreciated. CHEST: Regular rate and rhythm. No murmurs. LUNGS: Clear bilaterally. ABDOMEN: Soft with some tenderness to deep palpation. However, I am unable to localize the pain. She has a negative Briggs sign. She has no guarding. She moans with palpation in all quadrants, but when I ask her if it is painful, she states she does not know. EXTREMITIES: She is able to move all extremities. She has pain with movement of the left hip when I move it passively. Her distal pulses are 2+ and she is able to actively flex both hips and flex and extend both knees as well as her ankles. LABORATORY DATA/DIAGNOSTIC STUDIES: Sodium 132, potassium 3.2, chloride 96, bicarb 26, creatinine 1.03. White blood cell 11.5, hemoglobin 11.4, platelets 284. Urine negative for nitrite, leuk esterase, and ketones. Imaging: Brain CT shows advanced cortical atrophy with sequelae of prior ischemic insult. No acute findings. CT C-spine shows advanced degenerative disc disease. No acute findings. Hip pelvis x-ray shows no acute fracture. Pelvis CT shows mildly limited exam due to motion artifact. No acute fracture was seen. Chest, abdomen, and pelvis CT shows no acute findings. EKG shows sinus rhythm with a normal axis, LVH, ST elevation in V2 and Q wave in 3 and V2. ASSESSMENT AND PLAN: This is an 87-year-old female with a history of advanced dementia who presents after a fall at [facility]. 1. Fall. The etiology of her fall is unclear at this time. She has no osseous injury on an extensive workup that has been done in the emergency department so far. However, she is normally independent at [facility] and here has been unable to ambulate. So, we will admit her for observation and make sure that there is no underlying etiology to her inability to walk at this time. I am checking a troponin to be sure there was no cardiac etiology of her fall and also we will monitor her on telemetry overnight. Her urinalysis is unremarkable. She has had three separate images of her pelvis, which are all unremarkable for fracture. I am adding on a CK and requesting a physical therapy consult for assistance in ambulation with Ms. Wilson. She does have a sight leukocytosis. However at this time, an infectious workup has been unrevealing. We will continue to monitor her under observation to be sure that an infection is not brewing. She does have some electrolyte abnormalities, which I will treat now, but I do not believe should have contributed to her fall. I will also discuss the case with her son, Mykel. 2. Hypokalemia. Replete now. 3. Hyponatremia. This is chronic for her. I will give her some normal saline as she does appear volume deplete. 4. Dementia. She is currently on Aricept. However, I am not sure this is giving her much benefit. This should be discussed with her son and I will try to reach him now. 5. DVT prophylaxis. Lovenox subcutaneously. 6. DNR. [id number]/[facility] #: [id number] MTDD
--- NOTE | 2017-08-10 15:27 | PN ---
Hospitalist Progress Note Date of Service: 08/10/17 Spoke with patient's son Mykel and updated him on Ms. Wilson's admission. I updated her MOLST with him, he confirms DNR.
[2017-08-10] MEDS: Albuterol HFA INHALER* 8 gm MDI INH SCH (20:16)
[2017-08-10] MEDS: Famotidine TAB* 20 MG PO SCH (20:16)
[2017-08-10] MEDS: Donepezil TAB* 5 MG PO SCH (20:17)
[2017-08-11] MEDS: Acetaminophen TAB* 325 MG PO SCH ×4 (00:30→18:22)
[2017-08-11] MEDS: hydrALAZINE IV* 20 MG/ML VIAL IV PRN (05:51)
[2017-08-11 06:07] LABS: ABS Basophils 0.1 10^3/ul (0-0.2); ABS Eosinophils 0.2 10^3/ul (0-0.6); ABS Lymphocytes 1.7 10^3/ul (1.0-4.8); ABS Monocytes 0.8 10^3/ul (0-0.8); ABS Neutrophils 5.1 10^3/ul (1.5-7.7); ABS Nucleated RBC 0 10^3/ul; Hematocrit 34 % (35-47); Hemoglobin 11.2 g/dl (12.0-16.0); Lymphocyte % 21.1 % (25-47); Mean Corpuscular HGB Conc 33 g/dl (31-36); Mean Corpuscular Hemoglobin 23 pg (27-31); Mean Corpuscular Volume 69 fL (80-97); Mean Platelet Volume 8.3 um3 (7.4-10.4); Nucleated Red Blood Cells % 0; Platelet Count 287 10^3/ul (150-450); Red Blood Count 4.95 10^6/ul (4.0-5.4); Red Cell Distribution Width 19 % (10.5-15); White Blood Count 7.9 10^3/ul (3.5-10.8)
[2017-08-11 06:33] LABS: EGFR Non-African American 60.1 (>60)
[2017-08-11] MEDS: Sertraline* 50 MG TAB PO SCH (07:41)
[2017-08-11] MEDS: Atorvastatin* 20 MG TAB PO SCH (07:41)
[2017-08-11] MEDS: Multivitamins/Minerals TAB PO SCH (07:46)
[2017-08-11] MEDS: Albuterol HFA INHALER* 8 gm MDI INH SCH ×2 (08:12→20:29)
[2017-08-11] MEDS: NS 0.9% 1000 ML* 1,000 ML IV SCH (08:22)
[2017-08-11] MEDS ORDERED: Aspirin EC TAB* 81 MG TAB.EC PO SCH (09:00)
--- NOTE | 2017-08-11 10:22 | PN ---
Subjective Date of Service: 08/11/17 Interval History: Pt appears anxious, has difficulty following commands, disoriented. c/o no pain Objective Active Medications: Acetaminophen (Tylenol Tab*) 975 mg PO Q6H [facility] Last Admin: 08/11/17 07:41 Dose: 975 mg Al Hydrox/Mg Hydrox/Simethicone (Maalox Plus*) 30 ml PO Q6H PRN PRN Reason: INDIGESTION Albuterol (Ventolin Hfa Inhaler*) 1 puff INH BID [facility] Last Admin: 08/11/17 08:12 Dose: 1 puff Amlodipine Besylate (Norvasc Tab*) 5 mg PO DAILY [facility] Aspirin (Aspirin Ec Tab*) 81 mg PO DAILY [facility] Last Admin: 08/11/17 07:41 Dose: 81 mg Atorvastatin Calcium (Lipitor*) 20 mg PO DAILY [facility] Last Admin: 08/11/17 07:41 Dose: 20 mg Donepezil HCl (Aricept Tab*) 5 mg PO BEDTIME [facility] Last Admin: 08/10/17 20:17 Dose: 5 mg Enoxaparin Sodium (Lovenox(*)) 40 mg SUBCUT Q24H [facility] Last Admin: 08/10/17 12:27 Dose: 40 mg Famotidine (Pepcid Tab*) 40 mg PO BEDTIME [facility] Last Admin: 08/10/17 20:16 Dose: 40 mg Hydralazine HCl (Apresoline Iv*) 10 mg IV Q4H PRN PRN Reason: Systolic >170 Last Admin: 08/11/17 05:51 Dose: 10 mg Sodium Chloride (Ns 0.9% 1000 Ml*) 1,000 mls @ 50 mls/hr IV .PER RATE [facility] Last Admin: 08/11/17 08:22 Dose: 50 mls/hr Multivitamins/Minerals (Theragran/Minerals Tab*) 1 tab PO DAILY [facility] Last Admin: 08/11/17 07:46 Dose: Not Given Sertraline HCl (Zoloft*) 50 mg PO DAILY [facility] Last Admin: 08/11/17 07:41 Dose: 50 mg Vital Signs - 8 hr 08/11/17 08/11/17 08/11/17 04:43 04:49 06:45 Temperature 98.1 F Pulse Rate 87 Respiratory 16 16 Rate Blood Pressure 190/90 (mmHg) O2 Sat by Pulse 100 Oximetry 05/28/18 05/28/18 07:37 08:12 Temperature 97.9 F Pulse Rate 85 82 Respiratory 14 16 Rate Blood Pressure 149/68 (mmHg) O2 Sat by Pulse 99 98 Oximetry Oxygen Devices in Use Now: None Appearance: 87 yo F in nAD, oriented to self only, able to follow simple commands after multiple attempts Eyes: No Scleral Icterus, PERRLA Ears/Nose/Mouth/Throat: NL Teeth, Lips, Gums, Mucous Membranes Moist Neck: NL Appearance and Movements; NL JVP, Trachea Midline Respiratory: Symmetrical Chest Expansion and Respiratory Effort, Clear to Auscultation Cardiovascular: NL Sounds; No Murmurs; No JVD, RRR Abdominal: NL Sounds; No Tenderness; No Distention Lymphatic: No Cervical Adenopathy Extremities: No Edema, No Clubbing, Cyanosis Skin: No Rash or Ulcers, No Nodules or Sclerosis Neurological: NL Muscle Strength and Tone Result Diagrams: 08/11/17 06:00 08/11/17 06:00 Assess/Plan/Problems-Billing Assessment: 87 yo F with h/o dementia from [facility] presents after a fall - Patient Problems (1) Dementia Comment: pt has h/o of encephalopathy/delirium when admitted in 03/2017 and appears to be in acute encephalopathy again. Predisposing factors are her h/o dementia and another hospitalization . (2) HTN (hypertension) Comment: Continue Amlodipine for now. BP has been fluctuating likley due to anxiety (3) Physical deconditioning Comment: Lives at [facility]; will return there at [place] if not too deconditioned. PT eval pending. (4) Microcytic anemia Comment: iron studies and stool guaiac ordered (5) TSH elevation Comment: obtaining FT3, FT4 to eval further (6) DVT prophylaxis Comment: lovenox Status and Disposition: OBV will be changed to inpatient due to acute encephalopathy and deconditioning
[2017-08-11] MEDS: Enoxaparin(*) 40 MG/0.4 ML SYR SUBCUT SCH (10:43)
[2017-08-11] MEDS: amLODIPine TAB* 5 MG PO SCH (10:43)
[2017-08-11] MEDS: Donepezil TAB* 5 MG PO SCH (20:17)
[2017-08-11] MEDS: Famotidine TAB* 20 MG PO SCH (20:17)
[2017-08-12] MEDS: Acetaminophen TAB* 325 MG PO SCH ×4 (01:31→19:58)
[2017-08-12] MEDS: amLODIPine TAB* 5 MG PO SCH (08:13)
[2017-08-12] MEDS: Sertraline* 50 MG TAB PO SCH (08:13)
[2017-08-12] MEDS: Atorvastatin* 20 MG TAB PO SCH (08:13)
[2017-08-12] MEDS: Omeprazole CAP* 20 MG PO SCH ×2 (08:13→19:58)
[2017-08-12] MEDS: Multivitamins/Minerals TAB PO SCH (08:13)
[2017-08-12] MEDS: Albuterol HFA INHALER* 8 gm MDI INH SCH ×2 (08:19→21:02)
[2017-08-12] MEDS: NS 0.9% 1000 ML* 1,000 ML IV SCH (08:21)
[2017-08-12 09:14] LABS: Hematocrit 34 % (35-47); Hemoglobin 10.7 g/dl (12.0-16.0)
[2017-08-12] MEDS ORDERED: amLODIPine TAB* 5 MG PO SCH (10:59)
--- NOTE | 2017-08-12 11:22 | PN ---
Subjective Date of Service: 08/12/17 Interval History: Pt is still confused, c/o "pain all over". Not willing to follow commands. Ate little breakfast Objective Active Medications: Acetaminophen (Tylenol Tab*) 975 mg PO Q6H [facility] Last Admin: 08/12/17 05:33 Dose: 975 mg Al Hydrox/Mg Hydrox/Simethicone (Maalox Plus*) 30 ml PO Q6H PRN PRN Reason: INDIGESTION Albuterol (Ventolin Hfa Inhaler*) 1 puff INH BID [facility] Last Admin: 08/12/17 08:19 Dose: Not Given Amlodipine Besylate (Norvasc Tab*) 10 mg PO DAILY [facility] Atorvastatin Calcium (Lipitor*) 20 mg PO DAILY [facility] Last Admin: 08/12/17 08:13 Dose: 20 mg Donepezil HCl (Aricept Tab*) 5 mg PO BEDTIME [facility] Last Admin: 08/11/17 20:17 Dose: 5 mg Famotidine (Pepcid Tab*) 40 mg PO BEDTIME [facility] Last Admin: 08/11/17 20:17 Dose: 40 mg Hydralazine HCl (Apresoline Iv*) 10 mg IV Q4H PRN PRN Reason: Systolic >170 Last Admin: 08/11/17 05:51 Dose: 10 mg Sodium Chloride (Ns 0.9% 1000 Ml*) 1,000 mls @ 50 mls/hr IV .PER RATE [facility] Last Admin: 08/12/17 08:21 Dose: 50 mls/hr Multivitamins/Minerals (Theragran/Minerals Tab*) 1 tab PO DAILY [facility] Last Admin: 08/12/17 08:13 Dose: 1 tab Nystatin (Nystatin Cream*) 1 applic TOPICAL BID [facility] Omeprazole (Prilosec Cap*) 20 mg PO BID [facility] Last Admin: 08/12/17 08:13 Dose: 20 mg Sertraline HCl (Zoloft*) 50 mg PO DAILY [facility] Last Admin: 08/12/17 08:13 Dose: 50 mg Vital Signs - 8 hr 08/12/17 08/12/17 07:28 08:00 Temperature 99.1 F Pulse Rate 88 Respiratory 20 20 Rate Blood Pressure 163/82 (mmHg) O2 Sat by Pulse 98 Oximetry Oxygen Devices in Use Now: None Appearance: 87 yo F in nAD, lying in bed, eyes closed, able to open them to command, but not following other commands, oriented to self only Eyes: No Scleral Icterus, PERRLA Ears/Nose/Mouth/Throat: NL Teeth, Lips, Gums, Mucous Membranes Moist Neck: NL Appearance and Movements; NL JVP, Trachea Midline Respiratory: Symmetrical Chest Expansion and Respiratory Effort, Clear to Auscultation Cardiovascular: NL Sounds; No Murmurs; No JVD, RRR Abdominal: NL Sounds; No Tenderness; No Distention, No Hepatosplenomegaly Lymphatic: No Cervical Adenopathy Extremities: No Edema, No Clubbing, Cyanosis Skin: No Nodules or Sclerosis, - - intertigo in suprapubic area Neurological: NL Muscle Strength and Tone Result Diagrams: 08/12/17 06:22 08/11/17 06:00 Microbiology and Other Data: Microbiology 08/11/17 17:00 Stool Occult Blood (JERROD) - Final Stool Assess/Plan/Problems-Billing Assessment: 87 yo F with h/o dementia from [place] presents after a fall - Patient Problems (1) Dementia Comment: pt has h/o of encephalopathy/delirium when admitted in 03/2017 and appears to be in acute encephalopathy again. Predisposing factors are her h/o dementia and another hospitalization Today appears calmer but still confused wtih minimal PO inteke. cont gentle IVF. (2) HTN (hypertension) Comment: Uncontrolled, norvasc will be increased (3) Physical deconditioning Comment: Lives at [place], will need STR, Son Robert aware (4) Microcytic anemia Comment: iron studies shows low iron saturation,and stool guaiac +. Pt appears to have had slow likely lower GI bleed for the past 6 months. D/w son Robert who is not interested in procedures likle colonoscopy or EGD even if pt had cancer as the source of chronic GI bleed. Will start omeprazole BID, hold ASA and treat conservatively (5) TSH elevation Comment: But FT3, FT4 . WNL. To f/u with outpatient TSH in 1 month (6) DVT prophylaxis Comment: SCD's only due to heme+ stool Status and Disposition: inpatient
[2017-08-12] MEDS: Nystatin CREAM* 15 GM TUBE TOPICAL SCH (19:58)
[2017-08-12] MEDS: Famotidine TAB* 20 MG PO SCH (19:58)
[2017-08-12] MEDS: Donepezil TAB* 5 MG PO SCH (19:58)
[2017-08-13] MEDS: Acetaminophen TAB* 325 MG PO SCH ×2 (00:27→07:58)
[2017-08-13 07:56] LABS: ABS Basophils 0.1 10^3/ul (0-0.2); ABS Eosinophils 0.2 10^3/ul (0-0.6); ABS Lymphocytes 1.7 10^3/ul (1.0-4.8); ABS Monocytes 0.8 10^3/ul (0-0.8); ABS Neutrophils 5.4 10^3/ul (1.5-7.7); ABS Nucleated RBC 0 10^3/ul; Eosinophil % 3.1 % (0-6); Hematocrit 35 % (35-47); Hemoglobin 11.4 g/dl (12.0-16.0); Lymphocyte % 20.4 % (25-47); Mean Corpuscular HGB Conc 33 g/dl (31-36); Mean Corpuscular Hemoglobin 23 pg (27-31); Mean Corpuscular Volume 70 fL (80-97); Mean Platelet Volume 8.5 um3 (7.4-10.4); Nucleated Red Blood Cells % 0.1; Platelet Count 272 10^3/ul (150-450); Red Blood Count 4.96 10^6/ul (4.0-5.4); Red Cell Distribution Width 19 % (10.5-15); White Blood Count 8.1 10^3/ul (3.5-10.8)
[2017-08-13] MEDS: Multivitamins/Minerals TAB PO SCH (07:58)
[2017-08-13] MEDS: Omeprazole CAP* 20 MG PO SCH (07:59)
[2017-08-13] MEDS: Sertraline* 50 MG TAB PO SCH (07:59)
[2017-08-13] MEDS: Atorvastatin* 20 MG TAB PO SCH (07:59)
[2017-08-13] MEDS: hydrALAZINE IV* 20 MG/ML VIAL IV PRN (08:00)
[2017-08-13 08:06] VITALS: BP 172/76
[2017-08-13] MEDS: Albuterol HFA INHALER* 8 gm MDI INH SCH (08:26)
[2017-08-13] MEDS ORDERED: Ferrous Sulfate TAB* 325 MG PO SCH (09:00)
--- NOTE | 2017-08-13 10:20 | DS ---
CC: Dr. Lopez; [facility]. * DISCHARGE SUMMARY: DATE OF ADMISSION: 08/10/17 DATE OF DISCHARGE: 08/13/17. PRIMARY CARE PROVIDER: Dr. Lopez. DISPOSITION: The patient is being discharged to [facility]. DISCHARGE DIAGNOSES: 1. Status post fall and generalized deconditioning. 2. Acute delirium/encephalopathy due to hospitalization in patient with history of dementia. 3. Microcytic anemia in a patient with chronic gastrointestinal bleed for which family wished no further invasive investigation. 4. Hypertension. 5. Elevated TSH, for followup TSH level in 4 to 6 weeks. SECONDARY DIAGNOSES: 1. History of dementia. 2. History of hypertension. 3. History of asthma. 4. History of transient ischemic attack. MEDICATIONS AT DISCHARGE: 1. Omeprazole 20 mg twice a day. 2. Tylenol on p.r.n. basis. 3. Albuterol inhaler on a p.r.n. basis. 4. Norvasc 10 mg daily. 5. Lipitor 20 mg daily. 6. Calcium carbonate with vitamin D one tablet daily. 7. Aricept 5 mg at bedtime. 8. Pepcid 40 mg at bedtime. 9. Nystatin cream 1 application b.i.d. to groin area. 10. Zoloft 50 mg daily. LABORATORY DATA AND STUDIES PERFORMED DURING HOSPITAL STAY: On 08/13/17: WBC count of 8.1, hemoglobin of 11.4, hematocrit 35, MCV of 70. On 08/11/17, sodium was 130, potassium 3.6, chloride 100, carbon dioxide 21, BUN 14, creatinine 0.89. Iron level was 53, TIBC 400, percent iron saturation of 13, transferrin 286. On liver function test evaluation, the patient has had chronic elevation of alkaline phosphatase ever since March 2017 and during patient's hospital stay was 147. Other liver function tests were unremarkable. The patient's TSH was noted to be 7.07 but free T4 was 0.93 and free T3 was 3.3. CT of her chest, abdomen and pelvis obtained on 08/10/17 impression: "No acute findings." Pelvis CT obtained on the same day impression: "Mildly limited examination due to motion artifact, no acute fracture seen." C-spine CT obtained on admission impression: "Advanced degenerative disk disease and no acute findings." Brain CT impression: "Advanced cortical atrophy with sequela of para-ischemic insult, no acute findings." Chest x-ray impression: "No active disease." HOSPITAL COURSE: Tierra Wilson is an 87-year-old female with history of dementia who was noted to have history of being delirious and encephalopathic on admission to the hospital. She was admitted status post fall at her assisted living facility. She complained of pain all over and there was a question of a fracture although nothing was found. She was admitted to the hospital with diagnosis of further deconditioning after a full physical therapy evaluation. During her hospital stay, she was found to have mildly elevated TSH but normal free T4 and free T3 with recommendation to have a TSH followup in 4 to 6 weeks. The patient was also noted to have worsening of her microcytic anemia that had been developing for the past 6 months or so. Her stool was heme positive although she did not have melanotic stool or bright red blood per rectum. It appears that the patient has had chronic bleed for several months now. I discussed the case with the patient's son and healthcare proxy Mykel who was not interested in any further invasive procedures and no endoscopy or colonoscopy. At this point, we will treat the patient medically with stopping aspirin and adding omeprazole twice a day to famotidine that the patient already taken. Her hemoglobin remained throughout her hospital stay. During her hospital stay, the patient developed acute encephalopathy due to her underlying dementia during hospitalization. By the time of discharge, she still appears anxious in the mornings and eats very little breakfast, but later on, she is more coherent and interactive and has eaten 50% of her meals so far. At this point, she is not agitated but at baseline, she is very confused and has difficulty following commands. I believe that, once she is in rehabilitation facility, she may adjust to the new environment and interact better after several days. There was no infection found and no other abnormality noted to contribute to her encephalopathy. That was also discussed with patient's son Mykel who agrees with patient's transfer to [facility] facility for further rehabilitation. PHYSICAL EXAMINATION: At the time of discharge, blood pressure of 172/76, please note that her blood pressure had been fluctuating greatly when she is anxious. In the morning, her blood pressure would be up and then during the night, it would be down 100 systolically. Pulse rate of 78, respiratory rate 18 , oxygen saturation 98% on room air, temperature 98.7. General: The patient is a very pleasant 87- year-old female, who is in no acute distress. The patient is oriented to self only. She is not following commands. HEENT: Head atraumatic, normocephalic. Eyes: Pupils are equal, reactive to light and accommodation. Oropharynx is clear. Mucosa moist. Neck: Supple. No JVD. No bruits bilaterally. Cardiovascular: Regular rate and rhythm. No murmur. Respiratory: Faint crackles at bilateral bases, otherwise clear. Abdomen: Soft, nontender. Bowel sounds are present in all 4 quadrants. Extremities: There is no edema. Pulses are 2+ bilaterally. No clubbing or cyanosis. Neuro Evaluation: Speech is clear. Cranial nerves II through XII are grossly intact. Motor strength is 5/5 bilaterally. Psychiatric evaluation: The patient is very disoriented, has difficulty following commands, is hard of hearing. The patient is being discharged to [facility] for further rehabilitation. Please note that this is a short summary of the patient's hospitalization. Please refer to further medical records for details. TIME SPENT: Approximately 40 minutes was spent on the patient's discharge. [id number] #: [id number] MTDD
[2017-08-13] MEDS: Nystatin CREAM* 15 GM TUBE TOPICAL SCH (10:22)
== END 2017-08-13 12:45 | DRG 71 ==
LOC: ED 04:29 → OBSVTOIN 10:42 → MEDTELE 10:42
PROVIDERS: ADMIT Internal Medicine; ATTEND Internal Medicine
DX: G93.40 Encephalopathy, unspecified (principal); F05 Delirium due to known physiological condition; K92.1 Melena; E87.1 Hypo-osmolality and hyponatremia; R94.6 Abnormal results of thyroid function studies; D50.9 Iron deficiency anemia, unspecified; F03.90 Unspecified dementia, unspecified severity, without behavioral disturbance, psychotic disturbance, mood disturbance, and anxiety; W18.30XA Fall on same level, unspecified, initial encounter; Z66 Do not resuscitate; E87.6 Hypokalemia; J45.909 Unspecified asthma, uncomplicated; M19.90 Unspecified osteoarthritis, unspecified site; Z86.73 Personal history of transient ischemic attack (TIA), and cerebral infarction without residual deficits; Y92.099 Unspecified place in other non-institutional residence as the place of occurrence of the external cause; Z79.1 Long term (current) use of non-steroidal anti-inflammatories (NSAID); Z79.82 Long term (current) use of aspirin; Z79.899 Other long term (current) drug therapy
CPT/HCPCS: 36415; 70450; 71045; 71260; 72125; 72192; 74177; 80053; 81003; 82272; 82550; 83540; 83550; 84439; 84443; 84481; 84484; 85014; 85018; 85025; 85610; 85730; 86850; 86900; 86901; 93005; 94640; 99284; A9270-GY; J0360; J1650; J3480; Q9967